=== PATIENT | female | born 1970 | race Caucasian/White ===

== ENCOUNTER 2018-08-22 15:49 | Emergency (ER) | payer MEDICAID, SELFPAY ==
[2018-08-22 15:57] VITALS: BP 173/103; PULSE 104; RESP 20; TEMP 36.6; O2SAT 98
--- NOTE | 2018-08-22 16:24 | DI.CT_ITS ---
SYMPTOMS/DIAGNOSIS: DIZZINESS CRANIAL CT: The study was carried out without contrast enhancement. There is no evidence of an intra or extra-axial hemorrhage or significant white matter disease. The ventricles are unremarkable. There is no skull fracture. The soft tissues are unremarkable. The paranasal sinuses as visualized are unremarkable. There is no evidence of a mastoid effusion. SUMMARY: No evidence of acute intracranial pathology.
--- NOTE | 2018-08-22 16:27 | W.ED.GENAD ---
Discharge Plan Disposition Patient Disposition: HOME Condition: Fair Discharge Details Chief Complaint: Dizzy/Sync Clinical Impression: Acute viral syndrome, Acute labyrinthitis Primary Care Provider: Mar Blanca ED Provider: Radha Reed Home Meds and New Rx's Prescriptions: Continue metformin 500 MG tablet 500 mg PO DAILY RF: 0 bupropion HCl [Wellbutrin SR] 150 MG tablet extended release 12 hr 150 mg PO DAILY RF: 0 blood sugar diagnostic [FreeStyle Lite Strips] 1 EACH strip 1 ea Miscellaneous BID RF: 0 citalopram [Celexa] 20 MG tablet 20 mg PO DAILY RF: 0 levothyroxine 175 MCG tablet 1 tab PO DAILY RF: 0 ropinirole [Requip] 3 MG tablet 1 tab PO HS RF: 0 simvastatin 10 MG tablet 10 mg PO HS RF: 0 ibuprofen 800 MG tablet 800 mg PO PRN RF: 0 lisinopril 10 MG tablet 10 mg PO QAM RF: 0 epinephrine [EpiPen 2-Kalyan] 0.3 MG/0.3 ML auto-injector 0.3 mg IM RF: 0 cyclobenzaprine 10 MG tablet 10 mg PO TID PRN Qty: 10 RF: 0 Discharge Instructions Instructions: Labyrinthitis (ED), Viral Syndrome (ED) Additional Instructions: Encourage hydration. Tylenol and/or ibuprofen as needed for discomfort. Please follow-up with primary care in 1 week if symptoms not improve. If you develop new or worsening symptoms please seek care urgently once again. Please contact primary care tomorrow regarding your thyroid results, TSH 16.73, T4 0.52. Stand Alone Forms: Work Release Referrals: Mar Blanca PA [Primary Care Provider] - Discharge Data Discharge Date/Time-TO BE ENTERED AT DEPARTURE: 08/22/18 19:58 Medical Decision Making Patient is a 47-year-old female presents today with chief complaint of dizziness. She reports that she has had nasal congestion, sore throat and intermittent episodes of lightheadedness times 3 days. Denies any cough, dyspnea, chest pain. No syncope. states that she can occasionally feel that she feels that her head is spinning and that this is been going on for the past several years. Reports that she has had this for quite some time intermittently. States that she has a sudden onset of dizziness that lasts a few seconds particularly when she looks upward. States that this happens approximately 2 times per month and has been going on for quite some time. States that when she puts her eyes down it quickly subsides. She denies any fevers or chills. Denies any sinus pain. Is endorsing tinnitus that is also quite brief. Does not linked with tinnitus and dizziness. Feels that these are at different times. Currently not feeling dizzy. Endorse a brief episode of tinnitus while was in the room with her. Her exam is fairly benign. Pupils are equal and reactive. No nystagmus was elicited with Joselyn maneuver. No dizziness elicited. No nuchal rigidity. Patient appears nontoxic. Patient is hypertensive at 173/103, HR 104. Patient is an active smoker. Hx of HTN, RLS, DM type II, hypothyroidism, SU. Advised that her history is most consistent with viral illness particularly as she also has sore throat and congestion. Will obtain labs to evaluate. As patient has had this dizziness historically, I will also obtain CT. No vertical nystagmus was noted. Neuro exam is intact on exam with no acute findings. Patient has history of hypertension, obesity, type 2 diabetes, hypothyroidism, SU and irregular heartbeat. EKG reviewed by Dr. Garrido. Patient is in sinus rhythm with a rate of 87. Please see her note for further information. No acute ischemic changes noted CT reviewed by radiologist. Advised that there is no abnormality with the brain, no hemorrhage, no significant white matter disease, no edema. Ventricles are unremarkable no ventriculomegaly. Bones are unremarkable no acute fracture. Soft tissues are unremarkable. Sinuses are unremarkable no acute sinusitis. Mastoid air cells are unremarkable with no mastoid effusion. Laboratory evaluation significant for elevated TSH at 16.73. Patient has been elevated like this historically. Will obtain a free T4. Remaining laboratory evaluation without significant abnormality. Troponin is less than 0.02. No leukocytosis. Free T4 0.52. Discussed these findings with the patient. She reports that she has had a very difficult time getting her thyroid under control. This mind, that she follow-up with her primary care tomorrow to discuss her levothyroxine dosing. Patient's imaging and laboratory evaluation are quite reassuring as are her physical exam findings. I discussed with the patient and given her congestion, sore throat and ear discomfort, this is likely associate with a viral syndrome that may be causing labyrinthitis. Encourage hydration. She was given a dosing of Antivert which she states was unsuccessful. Seem to be primarily as her feeling of lightheadedness and vertigo are so intermittent. I did reevaluate the patient prior to discussing discharge and still did not note any nystagmus despite her actively feeling dizzy. However, at this point she is not reporting the room is spinning, more that she is feeling lightheaded. We discussed expected course for viral syndrome. She was given strict return precautions. Advise close follow-up with primary care if symptoms are not improving in the next week. Work note was given at patient's request. All of her questions and concerns were addressed and she is in agreement with this plan HPI General Mode of arrival: ambulatory. Date/Time Provider Initiated Documentation: 08/22/18 16:07. Limitations to Documentation: no limitations. Information obtained by: patient. History of Present Illness 47 year old F presents to the emergency department with the chief complaint of dizziness, sore throat, described as moderate, Quality is described as other (denies any discomfort), and is localized to the head, face (endorsing nasal congestion, sore throat) and eyes (describes dizziness as more of lightheaded with occassional room spinning). Patient started experiencing this day(s) (3) and it has been intermittent. No relieving factors improve symptom(s), No exacerbating factors reported . Patient notes no other symptoms. and weakness (endorses weakness for the past 3 days); denies chest pain, cough, diaphoresis, fever/chills, headaches, loss of appetite, malaise, nausea/vomiting, rash, shortness of breath and syncope. Patient did receive the following treatments prior to arrival, NSAID (states she took Ibprofen this morning for chronic back discomfort) Related Data Home Medications Medication Instructions Recorded Confirmed cyclobenzaprine 10 mg PO TID PRN #10 tab 05/22/14 08/22/18 epinephrine [EpiPen 2-Kalyan] 0.3 mg IM 05/22/14 05/22/14 ibuprofen 800 mg PO PRN 05/22/14 08/22/18 levothyroxine 1 tab PO DAILY 05/22/14 08/22/18 lisinopril 10 mg PO QAM 05/22/14 08/22/18 ropinirole [Requip] 1 tab PO HS 05/22/14 08/22/18 simvastatin 10 mg PO HS 05/22/14 08/22/18 blood sugar diagnostic [FreeStyle strip 02/17/18 Lite Strips] bupropion HCl [Wellbutrin SR] 150 mg PO DAILY tab-cap 02/17/18 08/22/18 citalopram [Celexa] 20 mg PO DAILY tab-cap 02/17/18 08/22/18 metformin 500 mg PO DAILY 02/17/18 08/22/18 Previous Rx's Medication Instructions Recorded cyclobenzaprine 10 mg PO TID PRN #10 tab 05/22/14 Allergies Allergy/AdvReac Type Severity Reaction Status Date / Time bee pollen [Bee Pollen] Allergy Severe Swelling/Ed Unverified 08/22/18 16:00 ifrah General Stated Complaint: Dizzy/Sync TERRY: 3 Review of Systems Constitutional Reports as per HPI, Denies chills, Denies fatigue, Denies fever(s), Denies headache(s), Denies malaise, Denies poor appetite and Reports weakness Eyes Denies blurry vision, Denies change in vision, Denies diplopia, Denies eye discharge, Denies irritation, Denies itchy eyes, Denies loss of vision and Denies eye pain ENT Reports as per HPI, Denies abnormal hearing, Reports vertigo, Reports dizziness, Denies ear discharge, Denies otalgia, Denies headache(s), Denies hearing loss, Denies mouth pain, Reports nasal congestion, Denies nose pain, Reports tinnitus (has had intermittent tinnitus, none currently), Denies sinus pain and Denies sinus pressure Cardiovascular Denies chest pain, Denies chest pain at rest, Denies chest pain with activity, Denies syncope, Denies rapid heart rate, Denies pedal edema, Denies dyspnea and Denies dyspnea on exertion Respiratory Denies chest congestion, Denies cough, Denies hemoptysis, Denies dyspnea and Denies dyspnea on exertion Gastrointestinal Denies abdominal pain, Denies diarrhea, Denies nausea and Denies vomiting Musculoskeletal Reports as per HPI, Denies abnormal gait, Reports back pain (no acute back pain), Denies numbness and Denies tingling Integumentary/Breasts Denies rash Neurologic Reports as per HPI, Denies abnormal hearing, Denies abnormal gait, Reports vertigo, Reports dizziness, Denies syncope, Denies headache(s), Denies lack of coordination, Denies focal weakness, Denies loss of vision, Denies numbness, Denies tingling and Reports weakness Endocrine Denies fatigue Allergic/Immunologic Denies itchy eyes [facility] Medical History Bone spur Diabetes mellitus, type II Dyspnea on exertion Female stress incontinence Hypertension Hypothyroidism (acquired) Irregular heart rate Obesity Obstructive sleep apnea (adult) (pediatric) Restless leg syndrome Sinusitis, chronic Smoker Social History Smoking/Tobacco Use Status: Former Tobacco Use Exam Const General: cooperative, healthy appearing, comfortable, no acute distress, well developed and well groomed Nutritional Appearance: average body habitus and well nourished Orientation: alert and awake HENMT Head: normal to inspection, normocephalic and atraumatic Ears: hearing grossly normal bilaterally, external ears normal and TM's normal bilaterally General nose exam: external nose normal Face and sinus: normal facial exam and sinuses nontender Mouth: oral mucosae normal, lip normal, tongue normal, oropharynx abnormals (erythema), moist mucous membranes, no muffled voice and no trismus Teeth and gingiva: dentition normal Throat: tonsils normal and uvula midline Eyes General: appearance normal, both eyes and all related structures Alignment and Position: alignment normal Periorbital: periorbital findings normal Eyelids: eyelids normal Conjunctivae: conjunctivae normal Pupils: PERRL EOM: EOM intact bilaterally Neck Neck: normal visual inspection, full ROM, no lymphadenopathy, no meningeal signs and trachea midline Resp Effort & Inspection: normal respiratory effort, able to speak in complete sentences and no respiratory distress Auscultation: clear to auscultation bilaterally, no rales, no rhonchi and no wheezes Cardio Rate: regular rate Rhythm: regular rhythm Heart Sounds: S1 normal and S2 normal GI Inspection: normal to inspection Palpation: soft, no hepatosplenomegaly, not firm, no guarding, not rigid and nontender Skin General skin exam: no rashes or lesions noted Lesions: no lesions Rashes: no rashes Trauma: no lacerations or abrasions Wounds: no wounds Neuro General: alert, awake and oriented x3 Cranial Nerves: CN's II-XI intact bilaterally, PERRL, accommodation normal, EOM intact bilaterally and no nystagmus Cognition: normal cognition Speech: speech normal Gait: normal gait Motor: muscle tone normal throughout and strength 5/5 throughout Sensory Exam: no sensory deficits noted DTR's: Rt Biceps: 2+, Lt Biceps: 2+, Rt Brachioradialis: 2+, Lt Brachioradialis: 2+, Rt Patellar: 2+, Lt Patellar: 2+, Rt Ankle: 2+ and Lt Ankle: 2+ Coordination: [id number] test normal and [id number] test normal Extrem General: normal to inspection, no pedal edema, no calf tenderness and normal gait Psych Appearance: grossly normal and well kempt Mental Status: mental status grossly normal Speech and Movement: speech and movement normal Course Vital Signs Temperature 36.6 C 08/22/18 15:57 Pulse 104 H 08/22/18 15:57 Respiratory Rate 20 08/22/18 15:57 Blood Pressure 173/103 H 08/22/18 15:57 Pulse Oximetry 98 08/22/18 15:57 Temperature 36.6 C 08/22/18 15:57 Temperature Source Skin 08/22/18 15:57 Pulse 104 H 08/22/18 15:57 Respiratory Rate 20 08/22/18 15:57 Respiratory Effort 08/22/18 15:57 Blood Pressure 173/103 H 08/22/18 15:57 Blood Pressure Position Supine 08/22/18 15:57 Pulse Oximetry 98 08/22/18 15:57 Oxygen Delivery Method Room Air 08/22/18 15:57 Oxygen Flow Rate 0 08/22/18 15:57 Pain Level 4 08/22/18 15:57
--- NOTE | 2018-08-22 16:30 | ED.GENADUL_ITS ---
Discharge Plan Disposition Patient Disposition: HOME Condition: Fair Discharge Details Chief Complaint: Dizzy/Sync Clinical Impression: Acute viral syndrome, Acute labyrinthitis Primary Care Provider: Mar Blanca ED Provider: Radha Reed Home Meds and New Rx's Prescriptions: Continue metformin 500 MG tablet 500 mg PO DAILY RF: 0 bupropion HCl [Wellbutrin SR] 150 MG tablet extended release 12 hr 150 mg PO DAILY RF: 0 blood sugar diagnostic [FreeStyle Lite Strips] 1 EACH strip 1 ea Miscellaneous BID RF: 0 citalopram [Celexa] 20 MG tablet 20 mg PO DAILY RF: 0 levothyroxine 175 MCG tablet 1 tab PO DAILY RF: 0 ropinirole [Requip] 3 MG tablet 1 tab PO HS RF: 0 simvastatin 10 MG tablet 10 mg PO HS RF: 0 ibuprofen 800 MG tablet 800 mg PO PRN RF: 0 lisinopril 10 MG tablet 10 mg PO QAM RF: 0 epinephrine [EpiPen 2-Kalyan] 0.3 MG/0.3 ML auto-injector 0.3 mg IM RF: 0 cyclobenzaprine 10 MG tablet 10 mg PO TID PRN Qty: 10 RF: 0 Discharge Instructions Instructions: Labyrinthitis (ED), Viral Syndrome (ED) Additional Instructions: Encourage hydration. Tylenol and/or ibuprofen as needed for discomfort. Please follow-up with primary care in 1 week if symptoms not improve. If you develop new or worsening symptoms please seek care urgently once again. Please contact primary care tomorrow regarding your thyroid results, TSH 16.73, T4 0.52. Stand Alone Forms: Work Release Referrals: Mar Blanca PA [Primary Care Provider] - Discharge Data Discharge Date/Time-TO BE ENTERED AT DEPARTURE: 08/22/18 19:58 Medical Decision Making Patient is a 47-year-old female presents today with chief complaint of dizziness. She reports that she has had nasal congestion, sore throat and intermittent episodes of lightheadedness times 3 days. Denies any cough, dyspnea, chest pain. No syncope. states that she can occasionally feel that she feels that her head is spinning and that this is been going on for the past several years. Reports that she has had this for quite some time intermittently. States that she has a sudden onset of dizziness that lasts a few seconds particularly when she looks upward. States that this happens approximately 2 times per month and has been going on for quite some time. States that when she puts her eyes down it quickly subsides. She denies any fevers or chills. Denies any sinus pain. Is endorsing tinnitus that is also quite brief. Does not linked with tinnitus and dizziness. Feels that these are at different times. Currently not feeling dizzy. Endorse a brief episode of tinnitus while was in the room with her. Her exam is fairly benign. Pupils are equal and reactive. No nystagmus was elicited with Joselyn maneuver. No dizziness elicited. No nuchal rigidity. Patient appears nontoxic. Patient is hypertensive at 173/103, HR 104. Patient is an active smoker. Hx of HTN, RLS, DM type II, hypothyroidism, SU. Advised that her history is most consistent with viral illness particularly as she also has sore throat and congestion. Will obtain labs to evaluate. As patient has had this dizziness historically, I will also obtain CT. No vertical nystagmus was noted. Neuro exam is intact on exam with no acute findings. Patient has history of hypertension, obesity, type 2 diabetes, hypothyroidism, SU and irregular heartbeat. EKG reviewed by Dr. Garrido. Patient is in sinus rhythm with a rate of 87. Please see her note for further information. No acute ischemic changes noted CT reviewed by radiologist. Advised that there is no abnormality with the brain , no hemorrhage, no significant white matter disease, no edema. Ventricles are unremarkable no ventriculomegaly. Bones are unremarkable no acute fracture. Soft tissues are unremarkable. Sinuses are unremarkable no acute sinusitis. Mastoid air cells are unremarkable with no mastoid effusion. Laboratory evaluation significant for elevated TSH at 16.73. Patient has been elevated like this historically. Will obtain a free T4. Remaining laboratory evaluation without significant abnormality. Troponin is less than 0.02. No leukocytosis. Free T4 0.52. Discussed these findings with the patient. She reports that she has had a very difficult time getting her thyroid under control. This mind, that she follow-up with her primary care tomorrow to discuss her levothyroxine dosing. Patient's imaging and laboratory evaluation are quite reassuring as are her physical exam findings. I discussed with the patient and given her congestion, sore throat and ear discomfort, this is likely associate with a viral syndrome that may be causing labyrinthitis. Encourage hydration. She was given a dosing of Antivert which she states was unsuccessful. Seem to be primarily as her feeling of lightheadedness and vertigo are so intermittent. I did reevaluate the patient prior to discussing discharge and still did not note any nystagmus despite her actively feeling dizzy. However, at this point she is not reporting the room is spinning, more that she is feeling lightheaded. We discussed expected course for viral syndrome. She was given strict return precautions. Advise close follow-up with primary care if symptoms are not improving in the next week. Work note was given at patient's request. All of her questions and concerns were addressed and she is in agreement with this plan HPI General Mode of arrival: ambulatory . Date/Time Provider Initiated Documentation: 08/22/18 16:07 . Limitations to Documentation: no limitations . Information obtained by: patient . History of Present Illness 47 year old F presents to the emergency department with the chief complaint of dizziness, sore throat, described as moderate, Quality is described as other (denies any discomfort), and is localized to the head, face (endorsing nasal congestion, sore throat) and eyes (describes dizziness as more of lightheaded with occassional room spinning). Patient started experiencing this day(s) (3) and it has been intermittent. No relieving factors improve symptom(s), No exacerbating factors reported . Patient notes no other symptoms. and weakness (endorses weakness for the past 3 days); denies chest pain, cough, diaphoresis, fever/chills, headaches, loss of appetite, malaise, nausea/vomiting, rash, shortness of breath and syncope. Patient did receive the following treatments prior to arrival, NSAID (states she took Ibprofen this morning for chronic back discomfort) Related Data Home Medications Medication Instructions Recorded Confirmed cyclobenzaprine 10 mg PO TID PRN #10 tab 05/22/14 08/22/18 epinephrine [EpiPen 2-Kalyan] 0.3 mg IM 05/22/14 05/22/14 ibuprofen 800 mg PO PRN 05/22/14 08/22/18 levothyroxine 1 tab PO DAILY 05/22/14 08/22/18 lisinopril 10 mg PO QAM 05/22/14 08/22/18 ropinirole [Requip] 1 tab PO HS 05/22/14 08/22/18 simvastatin 10 mg PO HS 05/22/14 08/22/18 blood sugar diagnostic [FreeStyle strip 02/17/18 Lite Strips] bupropion HCl [Wellbutrin SR] 150 mg PO DAILY tab-cap 02/17/18 08/22/18 citalopram [Celexa] 20 mg PO DAILY tab-cap 02/17/18 08/22/18 metformin 500 mg PO DAILY 02/17/18 08/22/18 Previous Rx's Medication Instructions Recorded cyclobenzaprine 10 mg PO TID PRN #10 tab 05/22/14 Allergies Allergy/AdvReac Type Severity Reaction Status Date / Time bee pollen [Bee Pollen] Allergy Severe Swelling/Ed Unverified 08/22/18 16:00 ifrah General Stated Complaint: Dizzy/Sync TERRY: 3 Review of Systems Constitutional Reports as per HPI, Denies chills, Denies fatigue, Denies fever(s), Denies headache(s), Denies malaise, Denies poor appetite and Reports weakness Eyes Denies blurry vision, Denies change in vision, Denies diplopia, Denies eye discharge, Denies irritation, Denies itchy eyes, Denies loss of vision and Denies eye pain ENT Reports as per HPI, Denies abnormal hearing, Reports vertigo, Reports dizziness , Denies ear discharge, Denies otalgia, Denies headache(s), Denies hearing loss , Denies mouth pain, Reports nasal congestion, Denies nose pain, Reports tinnitus (has had intermittent tinnitus, none currently), Denies sinus pain and Denies sinus pressure Cardiovascular Denies chest pain, Denies chest pain at rest, Denies chest pain with activity, Denies syncope, Denies rapid heart rate, Denies pedal edema, Denies dyspnea and Denies dyspnea on exertion Respiratory Denies chest congestion, Denies cough, Denies hemoptysis, Denies dyspnea and Denies dyspnea on exertion Gastrointestinal Denies abdominal pain, Denies diarrhea, Denies nausea and Denies vomiting Musculoskeletal Reports as per HPI, Denies abnormal gait, Reports back pain (no acute back pain) , Denies numbness and Denies tingling Integumentary/Breasts Denies rash Neurologic Reports as per HPI, Denies abnormal hearing, Denies abnormal gait, Reports vertigo, Reports dizziness, Denies syncope, Denies headache(s), Denies lack of coordination, Denies focal weakness, Denies loss of vision, Denies numbness, Denies tingling and Reports weakness Endocrine Denies fatigue Allergic/Immunologic Denies itchy eyes [facility] Medical History Bone spur Diabetes mellitus, type II Dyspnea on exertion Female stress incontinence Hypertension Hypothyroidism (acquired) Irregular heart rate Obesity Obstructive sleep apnea (adult) (pediatric) Restless leg syndrome Sinusitis, chronic Smoker Social History Smoking/Tobacco Use Status: Former Tobacco Use Exam Const General: cooperative, healthy appearing, comfortable, no acute distress, well developed and well groomed Nutritional Appearance: average body habitus and well nourished Orientation: alert and awake HENMT Head: normal to inspection, normocephalic and atraumatic Ears: hearing grossly normal bilaterally, external ears normal and TM's normal bilaterally General nose exam: external nose normal Face and sinus: normal facial exam and sinuses nontender Mouth: oral mucosae normal, lip normal, tongue normal, oropharynx abnormals ( erythema), moist mucous membranes, no muffled voice and no trismus Teeth and gingiva: dentition normal Throat: tonsils normal and uvula midline Eyes General: appearance normal, both eyes and all related structures Alignment and Position: alignment normal Periorbital: periorbital findings normal Eyelids: eyelids normal Conjunctivae: conjunctivae normal Pupils: PERRL EOM: EOM intact bilaterally Neck Neck: normal visual inspection, full ROM, no lymphadenopathy, no meningeal signs and trachea midline Resp Effort & Inspection: normal respiratory effort, able to speak in complete sentences and no respiratory distress Auscultation: clear to auscultation bilaterally, no rales, no rhonchi and no wheezes Cardio Rate: regular rate Rhythm: regular rhythm Heart Sounds: S1 normal and S2 normal GI Inspection: normal to inspection Palpation: soft, no hepatosplenomegaly, not firm, no guarding, not rigid and nontender Skin General skin exam: no rashes or lesions noted Lesions: no lesions Rashes: no rashes Trauma: no lacerations or abrasions Wounds: no wounds Neuro General: alert, awake and oriented x3 Cranial Nerves: CN's II-XI intact bilaterally, PERRL, accommodation normal, EOM intact bilaterally and no nystagmus Cognition: normal cognition Speech: speech normal Gait: normal gait Motor: muscle tone normal throughout and strength 5/5 throughout Sensory Exam: no sensory deficits noted DTR's: Rt Biceps: 2+, Lt Biceps: 2+, Rt Brachioradialis: 2+, Lt Brachioradialis : 2+, Rt Patellar: 2+, Lt Patellar: 2+, Rt Ankle: 2+ and Lt Ankle: 2+ Coordination: [id number] test normal and [id number] test normal Extrem General: normal to inspection, no pedal edema, no calf tenderness and normal gait Psych Appearance: grossly normal and well kempt Mental Status: mental status grossly normal Speech and Movement: speech and movement normal Course Vital Signs Temperature 36.6 C 08/22/18 15:57 Pulse 104 H 08/22/18 15:57 Respiratory Rate 20 08/22/18 15:57 Blood Pressure 173/103 H 08/22/18 15:57 Pulse Oximetry 98 08/22/18 15:57 Temperature 36.6 C 08/22/18 15:57 Temperature Source Skin 08/22/18 15:57 Pulse 104 H 08/22/18 15:57 Respiratory Rate 20 08/22/18 15:57 Respiratory Effort 08/22/18 15:57 Blood Pressure 173/103 H 08/22/18 15:57 Blood Pressure Position Supine 08/22/18 15:57 Pulse Oximetry 98 08/22/18 15:57 Oxygen Delivery Method Room Air 08/22/18 15:57 Oxygen Flow Rate 0 08/22/18 15:57 Pain Level 4 08/22/18 15:57
[2018-08-22] MEDS: Meclizine 25 MG TAB PO (17:00)
--- NOTE | 2018-08-22 17:24 | DI.VRAD_ITS ---
EXAM: CT Head Without Intravenous Contrast CLINICAL HISTORY: 47 years old, female; Signs and symptoms; Dizziness TECHNIQUE: Axial computed tomography images of the head/brain without intravenous contrast. All CT scans at this facility use at least one of these dose optimization techniques: automated exposure control; mA and/or kV adjustment per patient size (includes targeted exams where dose is matched to clinical indication); or iterative reconstruction. Coronal and sagittal reformatted images were created and reviewed. COMPARISON: No relevant prior studies available. FINDINGS: Brain: Unremarkable. No hemorrhage. No significant white matter disease. No edema. Ventricles: Unremarkable. No ventriculomegaly. Bones/joints: Unremarkable. No acute fracture. Soft tissues: Unremarkable. Sinuses: Unremarkable as visualized. No acute sinusitis. Mastoid air cells: Unremarkable as visualized. No mastoid effusion. IMPRESSION: No acute findings. Dictated and Authenticated by: Santiago Houston MD. Ordering:TEDDY MCCOY MD
[2018-08-22] MEDS: Normal Saline 1,000 ML 1000 ML IV (17:35)
[2018-08-22 17:56] LABS: Bilirubin Negative (Negative); Blood Negative (Negative); Clarity Clear; Glucose Negative (Negative); Ketones Negative (Negative); Leukocyte Esterase Trace (Negative); Nitrite Negative (Negative); Specific Gravity 1.025 (1.005-1.025); Urobilinogen 0.2 EU/dL (Up TO 0.2); pH 5.5 (5-8)
[2018-08-22 17:57] LABS: Abs Immature Grans 0.02 k/cumm (0.0-0.09); Absolute Basophil Count 0.02 k/cumm (0.0-0.2); Absolute Lymphocyte Count 2.72 k/cumm (1.2-3.4); Absolute Monocyte Count 1.11 k/cumm (0.11-0.7); Absolute Neutrophil Count 5.62 k/cumm (1.2-6.7); Basophils % 0.2; HCT 36.9 % (36.0-46.0); HGB 11.5 g/dL (12.0-15.5); Immature Grans % 0.2; Lymphocytes % 28.4; Mean Corp. HGB Concentration 31.2 g/dL (32.0-36.0); Mean Corpuscular Hemoglobin 24.8 pg (27.0-33.0); Mean Corpuscular Volume 79.7 fL (80-95); Mean Platelet Volume 9.8 fL (8.0-11.0); Monocytes % 11.6; Neutrophils % 58.6; Platelet Count 351 x1000/uL (130-400); RBC 4.63 m/cumm (4.00-5.20); RBC Distribution Width 19.5 % (11.7-14.6); White Blood Cell Count 9.59 k/cumm (4.4-10.8)
[2018-08-22 18:12] LABS: ALT 27 U/L (12-78); AST 12 U/L (15-37); Alkaline Phosphatase 114 U/L (46-116); Anion Gap 5.8 mmol/L (3-11); BUN 12 mg/dL (7-18); CO2 27.2 mmol/L (21.0-32.0); CREATININE 0.83 mg/dL (0.55-1.02); Calcium 8.5 mg/dL (8.5-10.1); Chloride 107 mmol/L (98-107); Glucose 153 mg/dL (70-100); Potassium 4.2 mmol/L (3.5-5.1); Sodium 140 mmol/L (136-145); TSH 16.73 uIU/mL (0.358-3.74); Total Protein 7.2 g/dL (6.4-8.2)
[2018-08-22 18:13] LABS: Bilirubin, Total < 0.1 mg/dL (0.2-1.0); Troponin I < 0.02 ng/mL (0.00-0.06)
[2018-08-22 18:16] LABS: RBC Negative (0-2)
[2018-08-22 18:17] LABS: Bacteria Negative HPF (Negative); C & S Indicated? No/Sq. Contamination; Casts Negative LPF (Negative); Crystals Negative HPF (Negative); Epithelial Cells Moderate HPF (Negative); Mucus Negative (Negative); Other Cells Negative (Negative)
[2018-08-22 18:18] LABS: Magnesium 2.1 mg/dL (1.8-2.4)
[2018-08-22 18:36] LABS: Anisocytosis 3+; Diff Comment RBC Morph Reviewed
[2018-08-22 18:37] LABS: Target Cells 2+
[2018-08-22 19:07] LABS: FREE T4 0.52 ng/dL (0.76-1.46)
[2018-08-22 19:54] VITALS: BP 171/99; PULSE 91; RESP 18; TEMP 37; O2SAT 100
== END 2018-08-22 19:58 | disposition home or self-care (01) ==
PROVIDERS: Emergency Provider Physician Assistant; PCP Physician Assistant Medical
DX: R42 Dizziness and giddiness (principal); H83.09 Labyrinthitis, unspecified ear; R09.81 Nasal congestion; B34.9 Viral infection, unspecified; J02.8 Acute pharyngitis due to other specified organisms; R94.6 Abnormal results of thyroid function studies; I10 Essential (primary) hypertension; E11.9 Type 2 diabetes mellitus without complications; Z79.84 Long term (current) use of oral hypoglycemic drugs
CPT/HCPCS: 36415; 80053; 93005; 95992; 96360; 99285; 70450; 81003; 81015; 83735; 84439; 84443; 84484; 85025; 93010

== ENCOUNTER 2018-09-06 06:29 | Emergency (ER) | payer MEDICAID, SELFPAY ==
[2018-09-06 06:33] VITALS: BP 164/92; PULSE 95; RESP 14; TEMP 36.4; O2SAT 96
--- NOTE | 2018-09-06 06:44 | W.ED.GENAD ---
Discharge Plan Disposition Patient Disposition: HOME Discharge Details Chief Complaint: Orthopedic Clinical Impression: Pain of right calf Primary Care Provider: Mar Blanca ED Provider: Terry Irvin Home Meds and New Rx's Prescriptions: Continue metformin 500 MG tablet 500 mg PO DAILY RF: 0 bupropion HCl [Wellbutrin SR] 150 MG tablet extended release 12 hr 150 mg PO DAILY RF: 0 citalopram [Celexa] 20 MG tablet 20 mg PO DAILY RF: 0 levothyroxine 175 MCG tablet 225 mcg PO DAILY RF: 0 ropinirole [Requip] 3 MG tablet 1 tab PO HS RF: 0 simvastatin 10 MG tablet 10 mg PO HS RF: 0 ibuprofen 800 MG tablet 800 mg PO PRN RF: 0 lisinopril 10 MG tablet 10 mg PO QAM RF: 0 epinephrine [EpiPen 2-Kalyan] 0.3 MG/0.3 ML auto-injector 0.3 mg IM RF: 0 No Action blood sugar diagnostic [FreeStyle Lite Strips] 1 EACH strip 1 ea Miscellaneous BID RF: 0 Discharge Instructions Instructions: Leg Pain (ED) Additional Instructions: Use Pierre wrap and crutches over the next 1 week. Bear weight on her leg as tolerated. Take ibuprofen and/or Tylenol for pain -dose according to labels. Please contact your primary care physician to arrange follow-up. Return to the ER for any worsening or new concerning symptoms. Stand Alone Forms: Work Release Referrals: Mar Blanca PA [Primary Care Provider] - Medical Decision Making 7:00 -- 47-year-old female here with atraumatic right calf pain and tenderness. Neurovascularly intact distally. Concern for DVT versus muscle strain. And to treat pain with ibuprofen and obtain lower extremity ultrasound. 7:35 --ultrasound of the right lower extremity interpreted by radiology: Negative for DVT. Suspect muscular strain. Will provide Pierre wrap and crutches. Patient advised to follow-up with her primary care physician. HPI General Mode of arrival: ambulatory. Date/Time Provider Initiated Documentation: 09/06/18 06:37. Limitations to Documentation: no limitations. Information obtained by: patient. HPI Narrative: 47-year-old female with history of hypertension, diabetes, here with calf pain. Patient notes pain in her posterior right calf that started last night and has persisted. Pain is severe and rated 8/10. Pain worse with ambulation. No associated numbness or weakness. Patient did not injure her leg. Patient has no history of blood clots. No recent immobility or surgery. Related Data Home Medications Medication Instructions Recorded Confirmed epinephrine [EpiPen 2-Kalyan] 0.3 mg IM 05/22/14 05/22/14 ibuprofen 800 mg PO PRN 05/22/14 09/06/18 levothyroxine 225 mcg PO DAILY 05/22/14 09/06/18 lisinopril 10 mg PO QAM 05/22/14 09/06/18 ropinirole [Requip] 1 tab PO HS 05/22/14 09/06/18 simvastatin 10 mg PO HS 05/22/14 09/06/18 blood sugar diagnostic [FreeStyle strip 02/17/18 Lite Strips] bupropion HCl [Wellbutrin SR] 150 mg PO DAILY tab-cap 02/17/18 09/06/18 citalopram [Celexa] 20 mg PO DAILY tab-cap 02/17/18 09/06/18 metformin 500 mg PO DAILY 02/17/18 09/06/18 Allergies Allergy/AdvReac Type Severity Reaction Status Date / Time bee pollen [Bee Pollen] Allergy Severe Swelling/Ed Unverified 09/06/18 06:33 firah General Stated Complaint: Orthopedic TERRY: 3 Review of Systems Cardiovascular Denies chest pain and Denies dyspnea Respiratory Denies dyspnea Musculoskeletal Reports as per HPI, Denies numbness and Denies tingling Neurologic Reports as per HPI, Denies numbness and Denies tingling PFSH Medical History Bone spur Diabetes mellitus, type II Dyspnea on exertion Female stress incontinence Hypertension Hypothyroidism (acquired) Irregular heart rate Obesity Obstructive sleep apnea (adult) (pediatric) Restless leg syndrome Sinusitis, chronic Smoker Social History Smoking/Tobacco Use Status: Former Tobacco Use Exam Const General: cooperative and no acute distress HENMT Head: normocephalic Mouth: moist mucous membranes Eyes Conjunctivae: normal conjunctivae Sclera: normal sclerae Neck Neck: trachea midline Resp Auscultation: clear to auscultation bilaterally, no rales, no rhonchi and no wheezes Cardio Jugular venous pressure: no JVD Rate: regular rate and not tachycardic Rhythm: regular rhythm GI Palpation: soft, not firm, no guarding, no masses, not rigid and nontender Skin General skin exam: no rashes or lesions noted Neuro General: alert, awake, oriented x3 and tone normal Extrem General: calf tenderness on the right and no edema Right lower extremity: lower leg Details: no edema and other (Negative Alves test); no erythema, no palpable cords, no deformity and no unusual warmth Psych Appearance: grossly normal Mental Status: mental status grossly normal Course Vital Signs Temperature 36.4 C L 09/06/18 06:33 Pulse 95 H 09/06/18 06:33 Respiratory Rate 14 09/06/18 06:33 Blood Pressure 164/92 H 09/06/18 06:33 Pulse Oximetry 96 09/06/18 06:33 Temperature 36.4 C L 09/06/18 06:33 Temperature Source Temporal Artery Scan 09/06/18 06:33 Pulse 95 H 09/06/18 06:33 Respiratory Rate 14 09/06/18 06:33 Respiratory Effort 09/06/18 06:33 Blood Pressure 164/92 H 09/06/18 06:33 Blood Pressure Position Sitting 09/06/18 06:33 Pulse Oximetry 96 09/06/18 06:33 Oxygen Delivery Method Room Air 09/06/18 06:33 Oxygen Flow Rate 0 09/06/18 06:33 Pain Level 8 09/06/18 06:39
[2018-09-06] MEDS: Ibuprofen 400 MG TAB PO (07:04)
--- NOTE | 2018-09-06 07:08 | ED.GENADUL_ITS ---
Discharge Plan Disposition Patient Disposition: HOME Discharge Details Chief Complaint: Orthopedic Clinical Impression: Pain of right calf Primary Care Provider: Mar Blanca ED Provider: Terry Irvin Home Meds and New Rx's Prescriptions: Continue metformin 500 MG tablet 500 mg PO DAILY RF: 0 bupropion HCl [Wellbutrin SR] 150 MG tablet extended release 12 hr 150 mg PO DAILY RF: 0 citalopram [Celexa] 20 MG tablet 20 mg PO DAILY RF: 0 levothyroxine 175 MCG tablet 225 mcg PO DAILY RF: 0 ropinirole [Requip] 3 MG tablet 1 tab PO HS RF: 0 simvastatin 10 MG tablet 10 mg PO HS RF: 0 ibuprofen 800 MG tablet 800 mg PO PRN RF: 0 lisinopril 10 MG tablet 10 mg PO QAM RF: 0 epinephrine [EpiPen 2-Kalyan] 0.3 MG/0.3 ML auto-injector 0.3 mg IM RF: 0 No Action blood sugar diagnostic [FreeStyle Lite Strips] 1 EACH strip 1 ea Miscellaneous BID RF: 0 Discharge Instructions Instructions: Leg Pain (ED) Additional Instructions: Use Pierre wrap and crutches over the next 1 week. Bear weight on her leg as tolerated. Take ibuprofen and/or Tylenol for pain -dose according to labels. Please contact your primary care physician to arrange follow-up. Return to the ER for any worsening or new concerning symptoms. Stand Alone Forms: Work Release Referrals: Mar Blanca PA [Primary Care Provider] - Medical Decision Making 7:00 -- 47-year-old female here with atraumatic right calf pain and tenderness. Neurovascularly intact distally. Concern for DVT versus muscle strain. And to treat pain with ibuprofen and obtain lower extremity ultrasound. 7:35 --ultrasound of the right lower extremity interpreted by radiology: Negative for DVT. Suspect muscular strain. Will provide Pierre wrap and crutches. Patient advised to follow-up with her primary care physician. HPI General Mode of arrival: ambulatory . Date/Time Provider Initiated Documentation: 09/06/18 06:37 . Limitations to Documentation: no limitations . Information obtained by: patient . HPI Narrative: 47-year-old female with history of hypertension, diabetes, here with calf pain. Patient notes pain in her posterior right calf that started last night and has persisted. Pain is severe and rated 8/10. Pain worse with ambulation. No associated numbness or weakness. Patient did not injure her leg. Patient has no history of blood clots. No recent immobility or surgery. Related Data Home Medications Medication Instructions Recorded Confirmed epinephrine [EpiPen 2-Kalyan] 0.3 mg IM 05/22/14 05/22/14 ibuprofen 800 mg PO PRN 05/22/14 09/06/18 levothyroxine 225 mcg PO DAILY 05/22/14 09/06/18 lisinopril 10 mg PO QAM 05/22/14 09/06/18 ropinirole [Requip] 1 tab PO HS 05/22/14 09/06/18 simvastatin 10 mg PO HS 05/22/14 09/06/18 blood sugar diagnostic [FreeStyle strip 02/17/18 Lite Strips] bupropion HCl [Wellbutrin SR] 150 mg PO DAILY tab-cap 02/17/18 09/06/18 citalopram [Celexa] 20 mg PO DAILY tab-cap 02/17/18 09/06/18 metformin 500 mg PO DAILY 02/17/18 09/06/18 Allergies Allergy/AdvReac Type Severity Reaction Status Date / Time bee pollen [Bee Pollen] Allergy Severe Swelling/Ed Unverified 09/06/18 06:33 ifrah General Stated Complaint: Orthopedic TERRY: 3 Review of Systems Cardiovascular Denies chest pain and Denies dyspnea Respiratory Denies dyspnea Musculoskeletal Reports as per HPI, Denies numbness and Denies tingling Neurologic Reports as per HPI, Denies numbness and Denies tingling PFSH Medical History Bone spur Diabetes mellitus, type II Dyspnea on exertion Female stress incontinence Hypertension Hypothyroidism (acquired) Irregular heart rate Obesity Obstructive sleep apnea (adult) (pediatric) Restless leg syndrome Sinusitis, chronic Smoker Social History Smoking/Tobacco Use Status: Former Tobacco Use Exam Const General: cooperative and no acute distress HENMT Head: normocephalic Mouth: moist mucous membranes Eyes Conjunctivae: normal conjunctivae Sclera: normal sclerae Neck Neck: trachea midline Resp Auscultation: clear to auscultation bilaterally, no rales, no rhonchi and no wheezes Cardio Jugular venous pressure: no JVD Rate: regular rate and not tachycardic Rhythm: regular rhythm GI Palpation: soft, not firm, no guarding, no masses, not rigid and nontender Skin General skin exam: no rashes or lesions noted Neuro General: alert, awake, oriented x3 and tone normal Extrem General: calf tenderness on the right and no edema Right lower extremity: lower leg Details: no edema and other (Negative Alves test); no erythema, no palpable cords, no deformity and no unusual warmth Psych Appearance: grossly normal Mental Status: mental status grossly normal Course Vital Signs Temperature 36.4 C L 09/06/18 06:33 Pulse 95 H 09/06/18 06:33 Respiratory Rate 14 09/06/18 06:33 Blood Pressure 164/92 H 09/06/18 06:33 Pulse Oximetry 96 09/06/18 06:33 Temperature 36.4 C L 09/06/18 06:33 Temperature Source Temporal Artery Scan 09/06/18 06:33 Pulse 95 H 09/06/18 06:33 Respiratory Rate 14 09/06/18 06:33 Respiratory Effort 09/06/18 06:33 Blood Pressure 164/92 H 09/06/18 06:33 Blood Pressure Position Sitting 09/06/18 06:33 Pulse Oximetry 96 09/06/18 06:33 Oxygen Delivery Method Room Air 09/06/18 06:33 Oxygen Flow Rate 0 09/06/18 06:33 Pain Level 8 09/06/18 06:39
--- NOTE | 2018-09-06 07:11 | DI.US_ITS ---
SYMPTOMS/DIAGNOSIS: PAIN RIGHT LEG ULTRASOUND: There is no evidence of DVT. There is no Culver's cyst.
== END 2018-09-06 07:56 | disposition home or self-care (01) ==
PROVIDERS: Emergency Provider Student in an Organized Health Care Education/Training Program; PCP Physician Assistant Medical
DX: M79.661 Pain in right lower leg (principal); I10 Essential (primary) hypertension; E11.9 Type 2 diabetes mellitus without complications; Z79.84 Long term (current) use of oral hypoglycemic drugs
CPT/HCPCS: 99284; 93971; 99282; E0114

== ENCOUNTER 2018-09-26 01:26 | Outpatient (CLI) | payer MEDICAID, SELFPAY ==
--- NOTE | 2018-09-26 07:23 | DI.MAMMO_ITS ---
SYMPTOMS/DIAGNOSIS: SCREENING, Z12.39 MAMMOGRAM: Mammograms were interpreted according to the usual protocol including computer analysis with CAD system, tomosynthesis and C view imaging. The breasts are of moderate density with fairly symmetrical distribution of fibroglandular tissue. No dominant mass or clumped microcalcification is identified in either breast. Current examination is compared with the previous examination of May 2011 and there has been no gross interval change in appearance since that time. CONCLUSION: No specific evidence of malignancy at this time. Routine screening examinations are suggested at yearly intervals in this age group according to the ACS/ACR guidelines. Category 1, breast density category B. MQSA ASSESSMENT OF FINDINGS: Negative. Category 1. Patient will receive a letter notifying them of these results. BI-RADS category B. There are scattered areas of fibroglandular density.
== END 2018-09-26 01:46 ==
PROVIDERS: PCP Physician Assistant Medical; Visit Provider Nurse Practitioner Family
DX: Z12.31 Encounter for screening mammogram for malignant neoplasm of breast (principal)
CPT/HCPCS: 77063; 77067

== ENCOUNTER 2019-07-26 14:11 | Outpatient (REF) | payer BC, SELFPAY ==
[2019-07-26 21:21] LABS: Anion Gap 11.3 mmol/L (3-11); BUN 16 mg/dL (7-18); CO2 24.7 mmol/L (21.0-32.0); CREATININE 1.05 mg/dL (0.55-1.02); Calcium 9.7 mg/dL (8.5-10.1); Chloride 102 mmol/L (98-107); Glucose 124 mg/dL (70-100); Potassium 4.4 mmol/L (3.5-5.1); Sodium 138 mmol/L (136-145); TSH (W/Ref FT4) 12.87 uIU/mL (0.36-3.74)
[2019-07-26 22:01] LABS: FREE T4 0.94 ng/dL (0.76-1.46)
== END 2019-07-26 14:31 ==
LOC: NCHCN 14:11
PROVIDERS: PCP Nurse Practitioner Family; Visit Provider Nurse Practitioner Family
DX: E03.9 Hypothyroidism, unspecified (principal); I10 Essential (primary) hypertension
CPT/HCPCS: 80048; 84439; 84443

== ENCOUNTER 2020-02-13 07:57 | Outpatient (REF) | payer BC, SELFPAY ==
[2020-02-13 19:44] LABS: ALT 28 U/L (14-59); AST 15 U/L (15-37); Albumin 3.4 g/dL (3.4-5.0); Alkaline Phosphatase 153 U/L (46-116); BUN 15 mg/dL (7-18); Bilirubin, Total 0.3 mg/dL (0.2-1.0); Calcium 9.6 mg/dL (8.5-10.1); Calculated LDL 109 mg/dL (<100); Chloride 102 mmol/L (98-107); Cholesterol 171 mg/dL (<200); Glucose 92 mg/dL (74-106); HDL Cholesterol 40 mg/dL (40-60); Potassium 4.8 mmol/L (3.5-5.1); Sodium 137 mmol/L (136-145); Total Protein 7.1 g/dL (6.4-8.2); Triglyceride 110 mg/dL (<150)
[2020-02-13 20:29] LABS: TSH (W/Ref FT4) < 0.01 uIU/mL (0.36-3.74)
[2020-02-13 22:31] LABS: Creatine Kinase 60 U/L (26-192); FREE T4 2.11 ng/dL (0.76-1.46)
== END 2020-02-13 08:17 ==
LOC: NCHCN 07:57
PROVIDERS: PCP Nurse Practitioner Family; Visit Provider Nurse Practitioner Family
DX: I10 Essential (primary) hypertension (principal); E11.9 Type 2 diabetes mellitus without complications; E03.9 Hypothyroidism, unspecified; E78.5 Hyperlipidemia, unspecified
CPT/HCPCS: 80053; 80061; 82550; 84439; 84443

== ENCOUNTER 2020-04-09 09:12 | Outpatient (REF) | payer BC, SELFPAY ==
[2020-04-09 20:36] LABS: ALT 29 U/L (14-59); AST 10 U/L (15-37); Calculated LDL 92 mg/dL (<100); Cholesterol 158 mg/dL (<200); HDL Cholesterol 44 mg/dL (40-60); Triglyceride 114 mg/dL (<150)
[2020-04-09 21:05] LABS: Creatine Kinase 60 U/L (26-192); FREE T4 1.93 ng/dL (0.76-1.46)
[2020-04-09 21:09] LABS: TSH < 0.01 uIU/mL (0.36-3.74)
== END 2020-04-09 09:32 ==
LOC: NCHCN 09:12
PROVIDERS: PCP Nurse Practitioner Family; Visit Provider Nurse Practitioner Family
DX: E78.5 Hyperlipidemia, unspecified (principal); E03.9 Hypothyroidism, unspecified
CPT/HCPCS: 80061; 82550; 84439; 84443; 84450; 84460

== ENCOUNTER 2020-10-08 08:15 | Outpatient (REF) | payer BC, SELFPAY ==
[2020-10-08 21:23] LABS: ALT 26 U/L (14-59); AST 15 U/L (15-37); Anion Gap 8.3 mmol/L (3-11); BUN 13 mg/dL (7-18); CO2 26.7 mmol/L (21.0-32.0); CREATININE 0.93 mg/dL (0.55-1.02); Calcium 9.4 mg/dL (8.5-10.1); Chloride 102 mmol/L (98-107); Glucose 101 mg/dL (74-106); Potassium 4.5 mmol/L (3.5-5.1); Sodium 137 mmol/L (136-145)
[2020-10-08 21:31] LABS: Hemoglobin A1C 6.7 % (<5.7)
== END 2020-10-08 08:35 ==
LOC: NCHCN 08:15
PROVIDERS: PCP Nurse Practitioner Family; Visit Provider Nurse Practitioner Family
DX: E11.9 Type 2 diabetes mellitus without complications (principal); I10 Essential (primary) hypertension; E03.9 Hypothyroidism, unspecified
CPT/HCPCS: 80048; 83036; 84443; 84450; 84460

== ENCOUNTER 2020-10-22 09:53 | Outpatient (REF) | payer BC, SELFPAY ==
[2020-10-22 21:07] LABS: ALT 25 U/L (14-59); AST 12 U/L (15-37); Anion Gap 7.9 mmol/L (3-11); BUN 11 mg/dL (7-18); CO2 28.1 mmol/L (21.0-32.0); Calcium 9.4 mg/dL (8.5-10.1); Chloride 103 mmol/L (98-107); Glucose 99 mg/dL (74-106); HDL Cholesterol 54 mg/dL (40-60); LDL CHOLESTEROL 103 mg/dL (<100); Potassium 4.7 mmol/L (3.5-5.1); Sodium 139 mmol/L (136-145)
[2020-10-22 21:18] LABS: Creatine Kinase 113 U/L (26-192)
== END 2020-10-22 10:13 ==
LOC: NCHCN 09:53
PROVIDERS: PCP Nurse Practitioner Family; Visit Provider Nurse Practitioner Family
DX: Z00.00 Encounter for general adult medical examination without abnormal findings (principal); Z13.228 Encounter for screening for other metabolic disorders
CPT/HCPCS: 80048; 82550; 83721; 83718; 84450; 84460

== ENCOUNTER 2021-07-26 21:22 | Emergency (ER) | payer BC, SELFPAY ==
[2021-07-26 21:30] VITALS: BP 128/73; PULSE 114; RESP 18; TEMP 36.4; O2SAT 97
--- NOTE | 2021-07-26 21:35 | ED.GENADUL_ITS ---
Discharge Plan Disposition Patient Disposition: HOME Condition: Good Discharge Details Clinical Impression: Diarrhea Primary Care Provider: Caryl Galeas ED Provider: Gonzalo Morrison Phelps Meds and New Rx's Prescriptions: Continued bupropion HCl [Wellbutrin SR] 150 MG tablet extended release 12 hr 150 mg PO DAILY RF: 0 (DME) blood sugar diagnostic [FreeStyle Lite Strips] 1 EACH strip 1 ea Miscellaneous BID RF: 0 citalopram [Celexa] 20 MG tablet 20 mg PO DAILY RF: 0 levothyroxine 175 MCG tablet 225 mcg PO DAILY RF: 0 ropinirole [Requip] 3 MG tablet 1 tab PO HS RF: 0 simvastatin 10 MG tablet 10 mg PO HS RF: 0 ibuprofen 800 MG tablet 800 mg PO PRN RF: 0 lisinopril 10 MG tablet 10 mg PO QAM RF: 0 epinephrine [EpiPen 2-Kalyan] 0.3 MG/0.3 ML auto-injector 0.3 mg IM RF: 0 Discharge Instructions Instructions: Acute Diarrhea (ED) Additional Instructions: Laboratory studies look okay tonight. Bring stool specimen back to lab for testing. Clear liquid/brat diet for the next couple of days. Ondansetron if needed for nausea vomiting. Follow-up with primary care end of week if not improving. Return to ED for fevers, worsening/constant abdominal pain, bloody stool, other concerns Referrals: Caryl Galeas [Primary Care Provider] - Medical Decision Making Patient presenting with complaint of abdominal cramping and diarrhea for the last couple of days. Diarrhea described as multiple episodes of watery yellow diarrhea. Reports earlier this week episode of heartburn which has not recurred. This was chest pain and not abdominal pain. Unlikely to be cardiac but will obtain EKG and troponin. Will start IV and give fluids as well as check CBC and chemistries. Will send stool for C.diff and bacterial pathogens if sample available. EKG without acute changes. Troponin negative. White count is elevated labs otherwise look fine. Patient unable to give stool sample here. Will send home with container and lab slip to bring back for studies. Discharge with a few ondansetron for recurrent nausea. Recommend clear liquid/brat diet. Follow-up with primary care in the week if not improving. Return to ED for bloody diarrhea, fever, worsening/persistent abdominal pain. Lab Data Lab results reviewed: Yes I reviewed the patient's lab results. ECG Data Attestation: I personally reviewed and interpreted this ECG (s) as follows: Prior ECG tracings: not available for review Interpretation: see EKG HPI General Date/Time Provider Initiated Documentation: 07/26/21 21:35 . Limitations to Documentation: no limitations . Information obtained by: patient and RN notes reviewed . HPI Narrative: Patient presents to ED with complaints of abdominal cramping and diarrhea for the last couple of days. 4 days ago she had episode of heartburn which has not returned. It was located more in her chest and her abdomen. Subsequently a couple of days after developed yellow watery diarrhea with abdominal cramping and some nausea. She does not have constant abdominal pain. She has not had vomiting. She has not had fever. There is been no blood in the stool. She has not been on antibiotics recently. 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 She is vaccinated against Covid. She denies cough or shortness of breath. Related Data Home Medications Medication Instructions Recorded Confirmed epinephrine [EpiPen 2-Kalyan] 0.3 mg IM 05/22/14 05/22/14 ibuprofen 800 mg PO PRN 05/22/14 07/26/21 levothyroxine 225 mcg PO DAILY 05/22/14 07/26/21 lisinopril 10 mg PO QAM 05/22/14 07/26/21 ropinirole [Requip] 1 tab PO HS 05/22/14 07/26/21 simvastatin 10 mg PO HS 05/22/14 07/26/21 blood sugar diagnostic [FreeStyle strip 02/17/18 Lite Strips] bupropion HCl [Wellbutrin SR] 150 mg PO DAILY tab-cap 02/17/18 07/26/21 citalopram [Celexa] 20 mg PO DAILY tab-cap 02/17/18 07/26/21 Allergies Allergy/AdvReac Type Severity Reaction Status Date / Time bee pollen [Bee Pollen] Allergy Severe Swelling/Ed Verified 07/26/21 21:42 ifrah General TERRY: 3 Review of Systems Narrative: As documented in HPI otherwise negative as below. Const: no fever, chills, weakness Resp: no cough, SOB, pleuritic pain CV: no CP, diaphoresis, edema, syncope GI: no vomiting Neuro: no headache, numbness, focal weakness, confusion PFSH Medical History Bone spur Diabetes mellitus, type II Dyspnea on exertion Female stress incontinence Hypertension Hypothyroidism (acquired) Irregular heart rate Obesity Obstructive sleep apnea (adult) (pediatric) Restless leg syndrome Sinusitis, chronic Smoker Surgical History History of section S/P hernia repair Social History Smoking/Tobacco Use Status: Current every day Tobacco Type: cigarettes Smoking risk assessment performed?: Yes Alcohol Intake: current Alcohol Intake frequency: a few times a month Drug use: Occasionally Substance use type: marijuana Do you feel safe in your relationship?: Yes Exam Narrative Exam Narrative: Const: Obese female in NAD. HEENT: NC/AT. Normal facial exam. Eyes: Normal conjunctiva and sclera. Neck: Supple. Trachea midline. Lungs: Normal respiratory effort. Lungs are clear. Cor: RRR without murmur/gallop. Good radial pulses. GI: Soft. NT/ND. No guarding or rebound. Neuro: A+O x 3. Normal speech, mentation, gait. Cranial nerves II - XII grossly intact. No gross motor or sensory deficit. Ext: No C/C/E. Skin: Warm and dry without rash.
--- NOTE | 2021-07-26 21:45 | RT.EKG_ITS ---
APPROVED REPORT Exam: Resting ECG Reason for Exam: Patient Location: E HR:101 bpm ECG Measurements Heart Rate 101 AXIS DE 177 P 43 QRSd 85 QRS -2 QT 333 T 74 QTc 431 Conclusion Sinus tachycardia...rate> 99 Low voltage, precordial leads...precordial leads <1.0mV Consider anterior infarct...Q >30mS in V2-V5 Nonspecific ST-T changes lateral limb leads No STEMI
[2021-07-26] MEDS: Normal Saline 1,000 ML 1000 ML IV (22:05)
[2021-07-26 22:09] LABS: Abs Immature Grans 0.06 10^3/uL (0.0-0.06); Absolute Basophil Count 0.04 10^3/uL (0.0-0.2); Absolute Eosinophil Count 0.05 10^3/uL (0.0-0.7); Absolute Lymphocyte Count 1.44 10^3/uL (1.2-3.4); Absolute Monocyte Count 1.32 10^3/uL (0.1-0.8); Basophils % 0.3; Eosinophils % 0.4; HCT 41.9 % (36.0-46.0); HGB 13.4 g/dL (11.2-15.7); Immature Grans % 0.4; Lymphocytes % 10.6; MCV 87.5 fL (80-95); MPV 9.4 fL (8.0-11.0); Monocytes % 9.7; Neutrophils % 78.6; Nucleated RBC 0 %; Platelet Count 304 10^3/uL (130-400); RBC 4.79 10^6/uL (3.93-5.22); RDW 14.4 % (11.7-14.6); RDW-SD 46.3 fL; WBC 13.63 10^3/uL (4.4-10.8)
[2021-07-26 22:12] LABS: Absolute Neutrophil Count 10.71 10^3/uL (1.2-6.7)
[2021-07-26] MEDS: Ondansetron 4 MG/2 ML VIAL IVP (22:15)
[2021-07-26 22:16] LABS: Magnesium 2.1 mg/dL (1.8-2.4)
[2021-07-26 22:24] LABS: ALT 23 U/L (14-59); AST 12 U/L (15-37); Albumin 3.1 g/dL (3.4-5.0); Alkaline Phosphatase 130 U/L (46-116); Anion Gap 7.3 mmol/L (3-11); BUN 18 mg/dL (7-18); Bilirubin, Total 0.2 mg/dL (0.2-1.0); CO2 24.7 mmol/L (21.0-32.0); CREATININE 1.1 mg/dL (0.55-1.02); Chloride 102 mmol/L (98-107); Estimated GFR 52.36 (mL/min/1.73m2); Glucose 122 mg/dL (74-106); Sodium 134 mmol/L (136-145); Total Protein 7.4 g/dL (6.4-8.2)
[2021-07-26 22:36] LABS: Troponin I < 0.05 ng/mL (<0.06)
[2021-07-26] MEDS: Ondansetron O.D.T. 4 MG TABEF, 3 TABS/BTL PO (23:51)
== END 2021-07-26 23:55 | disposition home or self-care (01) ==
PROVIDERS: Emergency Provider Emergency Medicine; PCP Nurse Practitioner Family
DX: R19.7 Diarrhea, unspecified (principal)
CPT/HCPCS: 80053; 87493; 87505; 93005; 96361; 96374; 99284; 83735; 84484; 85025; 93010; 99283; J2405

== ENCOUNTER 2021-07-27 16:51 | Outpatient (REF) | payer BC, SELFPAY ==
[2021-07-27 15:47] LABS: C Diff PCR Negative (Negative)
== END 2021-07-27 16:52 | disposition home or self-care (01) ==
LOC: LBN 16:51
PROVIDERS: PCP Nurse Practitioner Family; Visit Provider Emergency Medicine
DX: R19.7 Diarrhea, unspecified (principal)
CPT/HCPCS: 87493

== ENCOUNTER 2021-07-28 15:30 | Outpatient (REF) | payer BC, SELFPAY ==
[2021-07-28 20:47] LABS: Hemoglobin A1C 6.5 % (<5.7)
[2021-07-28 20:53] LABS: ALT 24 U/L (14-59); AST 12 U/L (15-37); HDL Cholesterol 52 mg/dL (40-60); LDL CHOLESTEROL 105 mg/dL (<100); TSH (W/Ref FT4) 0.47 uIU/mL (0.36-3.74)
[2021-07-30 10:25] LABS: Campylobacter PCR Negative (Negative); Shiga Toxin PCR Negative (Negative); Shigella/Enteroinvasive Ecoli Negative (Negative)
[2021-07-30 13:18] LABS: Salmonella PCR Positive (Negative)
== END 2021-07-28 15:31 | disposition home or self-care (01) ==
LOC: LBN 15:30
PROVIDERS: PCP Nurse Practitioner Family; Visit Provider Emergency Medicine
DX: Z00.00 Encounter for general adult medical examination without abnormal findings (principal)
CPT/HCPCS: 83721; 87329; 87505; 83036; 83718; 84443; 84450; 84460; 87177

== ENCOUNTER → 2021-07-29 14:22 | Outpatient (CLI) | payer BC, SELFPAY ==
[2021-07-29] MEDS: Omnipaque 350 MG/ML 50 ML BTL PO (12:38)
[2021-07-29] MEDS: Breeza Beverage 473 ML BTL PO (12:38)
[2021-07-29] MEDS: Omnipaque 350 MG/ML 100 ML BTL IJ (14:47)
--- NOTE | 2021-07-29 14:48 | DI.CT_ITS ---
Exam(s) CT ABDOMEN PELVIS W EXAM: CT ABDOMEN PELVIS W CLINICAL HISTORY: ABILAT LOW ABD PAIN,R10.9,DIARRHEA,? DIVERTICULITIS OR COLITIS. TECHNIQUE: Imaging Protocol: Axial computed tomography images with coronal and sagittal reformatted images were created and reviewed CONTRAST MATERIAL: Intravenous: Omnipaque 100cc Oral: None COMPARISON: No exams were available for comparison FINDINGS: VISUALIZED LUNG BASES: Interstitial lung disease. No pleural effusions. ABDOMEN: There is no ascites. LIVER: There are no focal hepatic lesions evident. Mild steatosis. GALLBLADDER/BILIARY: No obvious gallbladder pathology. CBD is not dilated. PANCREAS: No evidence of pancreatic mass nor dilatation of the pancreatic duct. SPLEEN: Spleen is not enlarged. No obvious intrasplenic lesions. Splenic and portal veins are paten t. ADRENALS: Is thickening of the left adrenal gland. Right adrenal gland also exhibits milder thickeni ng. KIDNEYS:There is a large calculus in the right renal pelvis which measures 1.6 by 1.0 cm by 1.4 cm. There is mild hydronephrosis above this level. A smaller a few smaller calculi in the lower pole mauro yx of the right kidney are also noted. The largest these measures 4 millimeters. There are no calcu li in the opposite-left kidney nor dilatation left collecting system. Right ureter is not dilated be low the UPJ. Also no calculi ureterovesical junctions nor within the nondistended urinary bladder. There are no cyst nor solid masses in either kidney. No perinephric fluid or streaking.. ABDOMINAL AORTA: Abdominal aorta is not enlarged. LYMPH NODES:There is no retroperitoneal nor paraaortic adenopathy. ABDOMINAL WALL: There are periumbilical fat containing hernias. These do not contain bowel loops. GI: There is no bowel obstruction. However, there is a diffuse malone colitis pattern. Colon wall syed ures 3-4 millimeters thick from cecum to the rectum, inclusive. No ascites. PELVIS: GI: No evidence of appendicitis.No evidence of sigmoid diverticulitis. LYMPH NODES: There is no intrapelvic nor inguinal adenopathy. REPRODUCTIVE: Uterus and ovaries appear unremarkable. No free fluid in the cul-de-sac. Nabothian cy sts noted in the upper cervix. URINARY BLADDER: No calculi nor obvious masses evident OSSEOUS: No significant osseous lesions. Advanced disc space narrowing L5-S1 level-chronic degenerative disc disease. Also significant facet arthropathy in lower lumbar spine. IMPRESSION: 1. There is a 16 x 10 x 14 millimeter obstructing calculus in the lower right renal pelvis with some dilatation of the infundibulum calices in the right kidney above this level. Smaller calculi are see n in the lower pole the right kidney. No calculi lower down in the right ureter nor in the urinary b ladder. No calculi seen in the opposite-left collecting system. No other renal findings. 2. Diffuse malone colitis pattern. Either infectious or an inflammatory bowel disease such as ulcerativ e colitis. No perforation. No gross dilatation. No free fluid. 3. No evidence of appendicitis. No diverticulitis. 4. No ascites. RADIATION DOSE DELIVERED: 1,068.84mGy.cm Total DLP DATA REPOSITORY: All CT scans at this facility are submitted to the National Radiology Data Registry (NRDR) Dose Index Registry (DIR) with the [employer] (ACR). RADIATION OPTIMIZATION: All CT scans at this facility use at least one of these dose optimization te chniques: automated exposure control; mA and/or kV adjustment per patient size (includes targeted exa ms where dose is matched to clinical indication); or iterative reconstruction.
== END ==
PROVIDERS: PCP Nurse Practitioner Family; Visit Provider Nurse Practitioner Family
DX: R10.9 Unspecified abdominal pain (principal); N20.0 Calculus of kidney; K51.80 Other ulcerative colitis without complications
CPT/HCPCS: 74177; J3490; Q9967

== ENCOUNTER 2021-07-31 13:29 | Outpatient (REF) | payer BC, SELFPAY ==
[2021-07-31 13:24] LABS: Abs Immature Grans 0.04 10^3/uL (0.0-0.06); Absolute Basophil Count 0.04 10^3/uL (0.0-0.2); Absolute Eosinophil Count 0.07 10^3/uL (0.0-0.7); Absolute Lymphocyte Count 2.04 10^3/uL (1.2-3.4); Absolute Monocyte Count 1.04 10^3/uL (0.1-0.8); Basophils % 0.4; Eosinophils % 0.6; HCT 39.4 % (36.0-46.0); HGB 12.4 g/dL (11.2-15.7); Immature Grans % 0.4; Lymphocytes % 18.6; MCH 27.9 pg (27.0-33.0); MCHC 31.5 % (32.0-36.0); MCV 88.7 fL (80-95); MPV 9.9 fL (8.0-11.0); Monocytes % 9.5; Neutrophils % 70.5; Nucleated RBC 0 %; Platelet Count 322 10^3/uL (130-400); RBC 4.44 10^6/uL (3.93-5.22); RDW 14.6 % (11.7-14.6); RDW-SD 47.5 fL; WBC 10.99 10^3/uL (4.4-10.8)
[2021-07-31 13:36] LABS: Absolute Neutrophil Count 7.75 10^3/uL (1.2-6.7)
[2021-07-31 13:41] LABS: ESR 33 mm/hr (0-30)
[2021-07-31 13:54] LABS: Bilirubin Negative (Negative); Blood Negative (Negative); Clarity Cloudy (Clear); Glucose Negative (Negative); Ketones Negative (Negative); Leukocyte Esterase Negative (Negative); Nitrite Negative (Negative); Specific Gravity >= 1.030 (1.005-1.025); Urobilinogen 0.2 EU/dL (Up TO 0.2)
[2021-07-31 13:55] LABS: ALT 25 U/L (14-59); AST 12 U/L (15-37); Albumin 2.8 g/dL (3.4-5.0); Alkaline Phosphatase 104 U/L (46-116); Anion Gap 10.6 mmol/L (3-11); BUN 10 mg/dL (7-18); Bilirubin, Total 0.1 mg/dL (0.2-1.0); C-Reactive Protein 1.98 mg/dL (0.0-0.3); CO2 24.4 mmol/L (21.0-32.0); CREATININE 0.9 mg/dL (0.55-1.02); Calcium 9.2 mg/dL (8.5-10.1); Chloride 111 mmol/L (98-107); Glucose 147 mg/dL (74-106); Potassium 3.6 mmol/L (3.5-5.1); Sodium 146 mmol/L (136-145); Total Protein 6.4 g/dL (6.4-8.2)
== END 2021-07-31 13:30 | disposition home or self-care (01) ==
LOC: NCHCN 13:29
PROVIDERS: PCP Nurse Practitioner Family; Visit Provider Nurse Practitioner Family
DX: N20.0 Calculus of kidney (principal); K51.00 Ulcerative (chronic) pancolitis without complications
CPT/HCPCS: 80053; 85652; 81003; 81015; 85025; 86140

== ENCOUNTER 2021-08-03 14:44 | Outpatient (REF) | payer BC, SELFPAY ==
--- NOTE | 2021-08-03 14:00 | PAPFT_PTH ---
PATIENT: Tabatha Becker LOC: [facility]#:[id number] AGE/SX: 50/F ROOM: RE08/03/[address]: Caryl Galeas : 1970 BED: DIS: 08/03/2021 SPEC #: [id number] RECD: 08/04/21 12:51 STATUS: PIETER REMode #: [id number] EVITA: 08/03/21 14:[address]: Caryl Galeas DEPT: [facility] Cytology RECD BY: Veda Copeland Tissues: 1 - CX/ENDOCX FOR PAP SMEARS Procedures: PAP THIN PREP/UVM Screening HPV DNA PROBE Comments: [id number]
== END 2021-08-03 14:45 | disposition home or self-care (01) ==
LOC: NCHCN 14:44
PROVIDERS: PCP Nurse Practitioner Family; Visit Provider Nurse Practitioner Family
DX: N39.0 Urinary tract infection, site not specified (principal); Z12.4 Encounter for screening for malignant neoplasm of cervix; Z11.51 Encounter for screening for human papillomavirus (HPV)
CPT/HCPCS: 88142; 87086; 87480; 87510; 87624; 87660

== ENCOUNTER 2021-11-09 14:03 | Outpatient (REF) | payer BC, SELFPAY ==
[2021-11-09 14:18] LABS: Bilirubin Negative (Negative); Blood Negative (Negative); Clarity Clear (Clear); Glucose Negative (Negative); Ketones Negative (Negative); Leukocyte Esterase Negative (Negative); Nitrite Negative (Negative); Specific Gravity 1.015 (1.005-1.025); Urobilinogen 0.2 EU/dL (Up TO 0.2)
[2021-11-10 16:45] LABS: COVID-19 RT-PCR UVMMC Result Negative (Negative)
== END 2021-11-09 14:04 | disposition home or self-care (01) ==
LOC: NCHCN 14:03
PROVIDERS: PCP Nurse Practitioner Family; Visit Provider Nurse Practitioner Family
DX: Z20.822 Contact with and (suspected) exposure to COVID-19 (principal); Z01.818 Encounter for other preprocedural examination; N20.0 Calculus of kidney
CPT/HCPCS: U0003; 81003; 87086

== ENCOUNTER 2022-01-11 07:40 | Outpatient (CLI) | payer BC, SELFPAY ==
[2022-01-12 13:08] LABS: COVID-19 RT-PCR UVMMC Result Negative (Negative)
== END 2022-01-11 07:41 | disposition home or self-care (01) ==
PROVIDERS: PCP Nurse Practitioner Family; Visit Provider Nurse Practitioner Family
DX: Z20.822 Contact with and (suspected) exposure to COVID-19 (principal)
CPT/HCPCS: U0003

== ENCOUNTER 2022-01-18 01:17 | Outpatient (CLI) | payer BC, SELFPAY ==
[2022-01-19 13:04] LABS: COVID-19 RT-PCR UVMMC Result Negative (Negative)
== END 2022-01-18 01:18 | disposition home or self-care (01) ==
LOC: LBO 01:17
PROVIDERS: PCP Nurse Practitioner Family; Visit Provider Nurse Practitioner Family
DX: Z20.822 Contact with and (suspected) exposure to COVID-19 (principal)
CPT/HCPCS: U0003

== ENCOUNTER 2022-01-25 02:42 | Outpatient (CLI) | payer BC, SELFPAY ==
[2022-01-26 01:40] LABS: COVID-19 RT-PCR UVMMC Result Negative (Negative)
== END 2022-01-25 02:43 | disposition home or self-care (01) ==
LOC: LBO 02:42
PROVIDERS: PCP Nurse Practitioner Family; Visit Provider Nurse Practitioner Family
DX: Z20.822 Contact with and (suspected) exposure to COVID-19 (principal)
CPT/HCPCS: U0003

== ENCOUNTER 2022-02-01 07:18 | Outpatient (CLI) | payer BC, SELFPAY ==
[2022-02-02 13:56] LABS: COVID-19 RT-PCR UVMMC Result Negative (Negative)
== END 2022-02-01 07:19 | disposition home or self-care (01) ==
PROVIDERS: PCP Nurse Practitioner Family; Visit Provider Nurse Practitioner Family
DX: Z20.822 Contact with and (suspected) exposure to COVID-19 (principal)
CPT/HCPCS: U0003

== ENCOUNTER 2022-02-08 07:23 | Outpatient (CLI) | payer BC, SELFPAY ==
[2022-02-08 19:35] LABS: COVID-19 RT-PCR UVMMC Result Negative (Negative)
== END 2022-02-08 07:24 | disposition home or self-care (01) ==
PROVIDERS: PCP Nurse Practitioner Family; Visit Provider Nurse Practitioner Family
DX: Z20.822 Contact with and (suspected) exposure to COVID-19 (principal)
CPT/HCPCS: U0003

== ENCOUNTER 2022-07-29 15:22 | Outpatient (REF) | payer OTHER, SELFPAY ==
[2022-07-29 16:09] LABS: Hemoglobin A1C 8.7 % (<5.7)
[2022-07-29 16:15] LABS: ALT 42 U/L (14-59); AST 27 U/L (15-37); Anion Gap 8.7 mmol/L (3-11); BUN 12 mg/dL (7-18); CO2 28.3 mmol/L (21.0-32.0); CREATININE 0.8 mg/dL (0.55-1.02); Calcium 9.4 mg/dL (8.5-10.1); Chloride 101 mmol/L (98-107); Creatine Kinase 93 U/L (26-192); Glucose 173 mg/dL (74-106); HDL Cholesterol 46 mg/dL (40-60); LDL CHOLESTEROL 105 mg/dL (<100); Potassium 4.4 mmol/L (3.5-5.1); Sodium 138 mmol/L (136-145)
== END 2022-07-29 15:23 | disposition home or self-care (01) ==
LOC: NCHCN 15:22
PROVIDERS: PCP Nurse Practitioner Family; Visit Provider Nurse Practitioner Family
DX: E78.5 Hyperlipidemia, unspecified (principal); I10 Essential (primary) hypertension; E11.9 Type 2 diabetes mellitus without complications; E03.9 Hypothyroidism, unspecified
CPT/HCPCS: 80048; 82550; 83721; 83036; 83718; 84450; 84460

== ENCOUNTER 2022-10-28 16:12 | Emergency (ER) | payer OTHER, SELFPAY ==
--- NOTE | 2022-10-28 16:30 | DI.RAD_ITS ---
Exam(s) XR KNEE RT 4V AP,LAT,DESTINEY,PAT EXAM: XR KNEE RT 4V AP,LAT,DESTINEY,PAT CLINICAL HISTORY: R knee pain s/p injury, r/o fx. TECHNIQUE: 2D digital imaging was performed of the right knee. Four views obtained. Merchant, AP, la teral and PA tunnel views were obtained. COMPARISON: No exams were available for comparison FINDINGS: BONES: No acute fracture is present. No bony destructive lesion is seen. JOINTS: The knee is normally aligned. No joint effusion is seen. There are mild degenerative changes in the knee. SOFT TISSUE: Normal. IMPRESSION: No acute fracture or dislocation. DATA REPOSITORY: RADIATION DOSE DELIVERED:
[2022-10-28 16:33] VITALS: BP 183/90; PULSE 94; RESP 22; TEMP 36.8; O2SAT 95
--- NOTE | 2022-10-28 18:16 | DI.VRAD_ITS ---
PROCEDURE INFORMATION: Exam: XR Left Knee Exam date and time: 10/28/2022 5:58 PM Age: 52 years old Clinical indication: Other: Right knee pain, S/P FX TECHNIQUE: Imaging protocol: Radiologic exam of the Left knee. Views: 4 or more views. COMPARISON: No relevant prior studies available. FINDINGS: Bones/joints: There is lateralization of the patella with mild degenerative change. Probable small joint effusion. There is mild medial compartment narrowing. Early hypertrophic spurring noted at the patellofemoral articulation. Soft tissues: Normal. IMPRESSION: Mild degenerative changes. Dictated and Authenticated by: Soumya Vasquez MD. Ordering:ALYSSA Valladares MD
--- NOTE | 2022-10-28 18:26 | W.ED.GENAD ---
Discharge Plan Disposition Patient Disposition: Home Condition: Stable Discharge Details Clinical Impression: Chronic pain of right knee, Osteoarthritis of right knee Primary Care Provider: Caryl Galeas ED Provider: Jacquelyn Garrido Home Meds and New Rx's Prescriptions: Continued bupropion HCl [Wellbutrin SR] 150 MG tablet extended release 12 hr 150 mg PO DAILY (DME) blood sugar diagnostic [FreeStyle Lite Strips] 1 EACH strip 1 ea Miscellaneous BID citalopram [Celexa] 20 MG tablet 20 mg PO DAILY levothyroxine 175 MCG tablet 200 mcg PO DAILY ropinirole [Requip] 3 MG tablet 1 tab PO HS simvastatin 10 MG tablet 10 mg PO HS ibuprofen 800 MG tablet 800 mg PO PRN lisinopril 10 MG tablet 10 mg PO QAM epinephrine [EpiPen 2-Kalyan] 0.3 MG/0.3 ML auto-injector 0.3 mg IM DIRECTED Januvia 50 mg Tablet 50 mg PO DAILY Discharge Instructions Instructions: Knee Pain (ED), Arthritis (ED) Additional Instructions: Your x-ray of your right knee noted changes consistent with arthritis. Apply ice to the affected area several times daily for 20 minutes at a time. Alternate tylenol and motrin as needed and directed for pain. Call the orthopedics office this week to schedule follow-up for reevaluation of your right knee pain and arthritis. Return immediately to the emergency department if you develop any worsening or new concerning symptoms. Stand Alone Forms: Work Release Referrals: Evelio Gallegos MD [ [facility] STAFF PHYSICIAN] - Discharge Data Discharge Physician: Jacquelyn Garrido Medical Decision Making 52-year-old female with a history of morbid obesity, hypertension, diabetes, hypothyroidism, obstructive sleep apnea presents with right knee pain for the past several weeks. Patient is morbidly obese. Her right knee appears normal to inspection without cellulitis or trauma. She has no right calf tenderness. She has neurovascular intact. Her pain is reproducible with any movement but there is no obvious ligamentous laxity. History of presentation does not appear consistent with septic arthritis or DVT. She was referred for right knee x-ray which showed mild degenerative changes. Discussed with patient that the mainstay of treatment would be weight loss in addition to ice, Tylenol, ibuprofen. Will provide Pierre wrap. She was given orthopedic follow-up information. She requested a work note. Usual and customary return precautions given prior to discharge. Medical Records Medical records reviewed: Yes I reviewed the patient's medical records. Imaging Data Radiologic Study: Radiologist's impression: XR Left Knee Exam date and time: 10/28/2022 5:58 PM Age: 52 years old Clinical indication: Other: Right knee pain, S/P FX TECHNIQUE: Imaging protocol: Radiologic exam of the Left knee. Views: 4 or more views. COMPARISON: No relevant prior studies available. FINDINGS: Bones/joints: There is lateralization of the patella with mild degenerative change. Probable small joint effusion. There is mild medial compartment narrowing. Early hypertrophic spurring noted at the patellofemoral articulation. Soft tissues: Normal. IMPRESSION: Mild degenerative changes. HPI General Mode of arrival: ambulatory. Date/Time Provider Initiated Documentation: 10/28/22 16:40. Limitations to Documentation: no limitations. Information obtained by: patient. HPI Narrative: Patient is a 52-year-old female with a history of morbid obesity, hypertension, diabetes, hypothyroidism, obstructive sleep apnea presents with right knee pain over the past several weeks. She denies any known injury but states the pain was worse while getting into her truck recently. Patient denies any fever. Related Data Home Medications Medication Instructions Recorded Confirmed epinephrine 0.3 mg/0.3 mL 0.3 mg IM DIRECTED 05/22/14 10/28/22 injection, auto-injector (EpiPen 2-Kalyan) ibuprofen 800 mg tablet 800 mg PO PRN 05/22/14 10/28/22 levothyroxine 175 mcg tablet 200 mcg PO DAILY 05/22/14 10/28/22 lisinopril 10 mg tablet 10 mg PO QAM 05/22/14 10/28/22 ropinirole 3 mg tablet (Requip) 1 tab PO HS 05/22/14 10/28/22 simvastatin 10 mg tablet 10 mg PO HS 05/22/14 10/28/22 blood sugar diagnostic (FreeStyle 02/17/18 Lite Strips) bupropion HCl 150 mg tablet,12 hr 150 mg PO DAILY 02/17/18 10/28/22 sustained-release (Wellbutrin SR) citalopram 20 mg tablet (Celexa) 20 mg PO DAILY 02/17/18 10/28/22 sitagliptin phosphate 50 mg tablet 50 mg PO DAILY 10/28/22 10/28/22 (Januvia) Allergies Allergy/AdvReac Type Severity Reaction Status Date / Time bee pollen [Bee Pollen] Allergy Severe Swelling/Ed Verified 10/28/22 16:38 ifrah General Stated Complaint: Orthopedic TERRY: 4 Review of Systems All systems reviewed & are unremarkable except as noted in HPI and below Constitutional Constitutional: Reports as per HPI, Denies chills and Denies fever(s) Eyes Eyes: Denies blurry vision ENT Ears, Nose, Mouth, and Throat: Denies dizziness, Denies sore throat and Denies throat swelling Cardiovascular Cardiovascular: Denies chest pain and Denies dyspnea Respiratory Respiratory: Denies cough and Denies dyspnea Gastrointestinal Gastrointestinal: Denies abdominal pain, Denies diarrhea and Denies vomiting Genitourinary Genitourinary: Denies hematuria and Denies dysuria Musculoskeletal Musculoskeletal: Denies back pain and Denies numbness Integumentary/Breasts Skin/Breast: Denies lesions and Denies rash Neurologic Neurologic: Denies dizziness, Denies localized weakness and Denies numbness Allergic/Immunologic Allergic/Immunologic: Denies throat swelling PFSH All Active Problems (Updated 10/28/22 @ 18:29 by Jacquelyn Garrido DO) Diarrhea (Acute) Chronic pain of right knee (Acute) Osteoarthritis of right knee (Acute) Medical History Bone spur Diabetes mellitus, type II Dyspnea on exertion Female stress incontinence Hypertension Hypothyroidism (acquired) Irregular heart rate Obesity Obstructive sleep apnea (adult) (pediatric) Restless leg syndrome Sinusitis, chronic Smoker Surgical History History of section S/P hernia repair Social History Smoking/Tobacco Use Status: Current every day Tobacco Type: e-cigarettes Smoking risk assessment performed?: Yes Alcohol Intake: current Alcohol Intake frequency: a few times a month Drug use: Occasionally Substance use type: marijuana Do you feel safe at home: Yes Do you feel safe in your relationship?: Yes Exam Const General: cooperative and no acute distress Nutritional Appearance: obese morbidly obese Orientation: alert, awake and oriented x3 HENMT Head: normal to inspection Mouth: oral mucosae normal Eyes General: appearance normal, both eyes and all related structures Neck Neck: normal visual inspection Resp Effort & Inspection: normal respiratory effort and able to speak in complete sentences Cardio Rate: regular rate Skin General skin exam: no rashes or lesions noted Neuro General: patient alert, patient awake and patient oriented x3 Motor: muscle tone normal throughout Extrem Other: Right anterior knee appears normal to inspection. She has pain with valgus and varus stress. Negative anterior and posterior drawer test. No ligamentous laxity noted. There is no overlying erythema, edema, ecchymosis. No right calf tenderness. Right DP/PT pulses intact. Psych Appearance: grossly normal Affect: normal affect Course Vital Signs Vital signs: Vital Signs Temperature 98.3 F 10/28/22 16:33 Pulse 94 H 10/28/22 16:33 Respiratory Rate 22 10/28/22 16:33 Blood Pressure 183/90 H 10/28/22 16:33 Pulse Oximetry 95 10/28/22 16:33 Temperature 98.3 F 10/28/22 16:33 Temperature Source Temporal Artery Scan 10/28/22 16:33 Pulse 94 H 10/28/22 16:33 Respiratory Rate 22 10/28/22 16:33 Respiratory Effort Non-Labored 10/28/22 16:37 Blood Pressure 183/90 H 10/28/22 16:33 Blood Pressure Position Sitting 10/28/22 16:33 Pulse Oximetry 95 10/28/22 16:33 Oxygen Delivery Method Room Air 10/28/22 16:33 Oxygen Flow Rate 0 10/28/22 16:33 Pain Level 9 10/28/22 16:33
== END 2022-10-28 18:41 | disposition home or self-care (01) ==
PROVIDERS: Emergency Provider Physician Assistant; PCP Nurse Practitioner Family
DX: M17.11 Unilateral primary osteoarthritis, right knee (principal); G89.29 Other chronic pain; I10 Essential (primary) hypertension; E11.9 Type 2 diabetes mellitus without complications; E03.9 Hypothyroidism, unspecified; E66.01 Morbid (severe) obesity due to excess calories; Z79.899 Other long term (current) drug therapy
CPT/HCPCS: 99283; 73564; 99282

== ENCOUNTER 2023-06-19 16:08 | Emergency (ER) | payer OTHER, SELFPAY ==
[2023-06-19 16:13] VITALS: BP 134/76; PULSE 115; RESP 20; O2SAT 97
--- NOTE | 2023-06-19 16:29 | ED.GENADUL_ITS ---
Discharge Plan Disposition Patient Disposition: Home Condition: Stable Discharge Details Clinical Impression: Cellulitis Primary Care Provider: Caryl Galeas ED Provider: Afsaneh Fay Home Meds and New Rx's Prescriptions: New sulfamethoxazole-trimethoprim [Bactrim DS] 800-160 mg tablet 1 tab PO BID Qty: 20 0RF cephalexin 500 mg capsule 500 mg PO QID Qty: 40 0RF Continued bupropion HCl [Wellbutrin SR] 150 MG tablet extended release 12 hr 150 mg PO DAILY (DME) FreeStyle Lite Strips 1 EACH strip 1 ea Miscellaneous BID citalopram [Celexa] 20 MG tablet 20 mg PO DAILY levothyroxine 175 MCG tablet 200 mcg PO DAILY ropinirole [Requip] 3 MG tablet 1 tab PO HS simvastatin 10 MG tablet 10 mg PO HS ibuprofen 800 MG tablet 800 mg PO PRN lisinopril 10 MG tablet 10 mg PO QAM epinephrine [EpiPen 2-Kalyan] 0.3 MG/0.3 ML auto-injector 0.3 mg IM DIRECTED Januvia 50 mg Tablet 50 mg PO DAILY Discharge Instructions Instructions: Cellulitis (ED), Cellulitis (DC) Additional Instructions: Warm moist compresses 4 times daily Take antibiotics as directed even if you feel better Symptoms may worsen for the next 24 to 48 hours but after that should improve if not please return for possible IV antibiotics Stand Alone Forms: Work Release Referrals: Caryl Galeas [Primary Care Provider] - Discharge Data Discharge Date/Time-TO BE ENTERED AT DEPARTURE: 06/19/23 17:07 Medical Decision Making This is a 52-year-old woman who comes in with an area of cellulitis present for 3 days under her right axilla. She denies any similar history she had no fevers or signs of systemic infection area has had some purulent drainage. Bedside ultrasound does not show significant pocket to I&D. She has been advised to continue warm moist soaks and encourage drainage with gentle pressure. She will be placed on oral antibiotics area has been marked by nursing she was advised to return if symptoms worsening after 1 to 2 days on the antibiotics Medical Records Medical records reviewed: Yes I reviewed the patient's medical records. HPI General Mode of arrival: ambulatory . Date/Time Provider Initiated Documentation: 06/19/23 16:29 . Limitations to Documentation: no limitations . Information obtained by: patient . HPI Narrative: 3 days of warmth and erythema under her right axilla. Small area that is draining purulent drainage she has had no fevers or signs of systemic infection. No similar history Related Data Home Medications Medication Instructions Recorded Confirmed epinephrine 0.3 mg/0.3 mL 0.3 mg IM DIRECTED 05/22/14 10/28/22 injection, auto-injector (EpiPen 2-Kalyan) ibuprofen 800 mg tablet 800 mg PO PRN 05/22/14 06/19/23 levothyroxine 175 mcg tablet 200 mcg PO DAILY 05/22/14 06/19/23 lisinopril 10 mg tablet 10 mg PO QAM 05/22/14 06/19/23 ropinirole 3 mg tablet (Requip) 1 tab PO HS 05/22/14 06/19/23 simvastatin 10 mg tablet 10 mg PO HS 05/22/14 06/19/23 blood sugar diagnostic (FreeStyle 02/17/18 06/19/23 Lite Strips) bupropion HCl 150 mg tablet,12 hr 150 mg PO DAILY 02/17/18 06/19/23 sustained-release (Wellbutrin SR) citalopram 20 mg tablet (Celexa) 20 mg PO DAILY 02/17/18 06/19/23 sitagliptin phosphate 50 mg tablet 50 mg PO DAILY 10/28/22 06/19/23 (Januvia) cephalexin 500 mg capsule 500 mg PO QID #40 caps 06/19/23 sulfamethoxazole 800 1 tab PO BID #20 tabs 06/19/23 mg-trimethoprim 160 mg tablet (Bactrim DS) Previous Rx's Medication Instructions Recorded cephalexin 500 mg capsule 500 mg PO QID #40 caps 06/19/23 sulfamethoxazole 800 1 tab PO BID #20 tabs 06/19/23 mg-trimethoprim 160 mg tablet (Bactrim DS) Allergies Allergy/AdvReac Type Severity Reaction Status Date / Time bee pollen [Bee Pollen] Allergy Severe Swelling/Ed Verified 10/28/22 16:38 ifrah metformin AdvReac Other (See Unverified 06/19/23 16:18 Comment) General Stated Complaint: Cellulitis TERRY: 3 Review of Systems All systems reviewed & are unremarkable except as noted in HPI and below PFSH All Active Problems (Updated 06/19/23 @ 16:40 by Afsaneh Fay NP) Diarrhea (Acute) Cellulitis (Acute) Medical History Bone spur Diabetes mellitus, type II Dyspnea on exertion Female stress incontinence Hypertension Hypothyroidism (acquired) Irregular heart rate Obesity Obstructive sleep apnea (adult) (pediatric) Restless leg syndrome Sinusitis, chronic Smoker Surgical History History of section S/P hernia repair Social History Smoking/Tobacco Use Status: Current every day Tobacco Type: e-cigarettes Smoking risk assessment performed?: Yes Alcohol Intake: current Alcohol Intake frequency: a few times a month Drug use: Occasionally Substance use type: marijuana Housing: house Do you feel safe at home: Yes Do you feel safe in your relationship?: Yes Exam Const General: comfortable and not ill appearing Nutritional Appearance: obese Orientation: alert, awake and oriented x3 HENMT Head: normal to inspection, normocephalic and atraumatic Mouth: oral mucosae normal Chest Chest: normal inspection of the chest Resp Effort & Inspection: normal respiratory effort Cardio Rate: regular rate Rhythm: regular rhythm Skin General skin exam: erythema Lesions: lesion noted (small open lesion under right axilla, surrounding erythema marked by nurse) Rashes: rashes noted Course Vital Signs Vital signs: Vital Signs Pulse 115 H 06/19/23 16:13 Respiratory Rate 20 06/19/23 16:13 Blood Pressure 134/76 06/19/23 16:13 Pulse Oximetry 97 06/19/23 16:13 Pulse 115 H 06/19/23 16:13 Respiratory Rate 20 06/19/23 16:13 Respiratory Effort Normal, Non-Labored 06/19/23 16:16 Blood Pressure 134/76 06/19/23 16:13 Blood Pressure Position Sitting 06/19/23 16:13 Pulse Oximetry 97 06/19/23 16:13 Oxygen Delivery Method Room Air 06/19/23 16:13 Oxygen Flow Rate 0 06/19/23 16:13 Pain Level 9 06/19/23 16:13 PAWSS Have you Been Recently Intoxicated or Drunk Within the Last 30 days?: No Have you Ever Experienced Previous Episodes of Alcohol Withdrawal?: No Have you ever Experienced Withdrawal Seizures?: No Have you ever Experienced Delirium Tremens(DT)s?: No Have you ever undergone Alcohol Rehabilitation Treatment (i.e, inpt ot outpatient treatment programs)?: No Have you ever Experienced Blackouts?: No Have you ever Combined Alcohol with other Downers within the last 90 days?: No Have you ever Combined Alcohol with any other Substance of Abuse during the last 90 days?: No Result: 0
== END 2023-06-19 17:07 | disposition home or self-care (01) ==
PROVIDERS: Emergency Provider Nurse Practitioner Acute Care; PCP Nurse Practitioner Family
DX: L03.111 Cellulitis of right axilla (principal); E11.9 Type 2 diabetes mellitus without complications; I10 Essential (primary) hypertension; F17.290 Nicotine dependence, other tobacco product, uncomplicated; Z79.84 Long term (current) use of oral hypoglycemic drugs
CPT/HCPCS: 99282

== ENCOUNTER 2023-06-21 15:42 | Inpatient (IN) | payer OTHER, SELFPAY ==
[2023-06-21] VITALS (14 sets, daily range): BP systolic 124–149; BP diastolic 66–104; PULSE 102–131; RESP 18–20; TEMP 36.1–37; O2SAT 92–98
--- NOTE | 2023-06-21 16:03 | ED.GENADUL_ITS ---
Discharge Plan Disposition Patient Disposition: Admit to [facility] Discharge Details Clinical Impression: Cellulitis, Acute hyperglycemia, Acidosis, lactic Primary Care Provider: Caryl Galeas ED Provider: Miriam Camargo Home Meds and New Rx's Prescriptions: No Action bupropion HCl [Wellbutrin SR] 150 MG tablet extended release 12 hr 150 mg PO DAILY (DME) FreeStyle Lite Strips 1 EACH strip 1 ea Miscellaneous BID citalopram [Celexa] 20 MG tablet 20 mg PO DAILY levothyroxine 175 MCG tablet 200 mcg PO DAILY ropinirole [Requip] 3 MG tablet 1 tab PO HS simvastatin 10 MG tablet 10 mg PO HS ibuprofen 800 MG tablet 800 mg PO PRN lisinopril 10 MG tablet 10 mg PO QAM epinephrine [EpiPen 2-Kalyan] 0.3 MG/0.3 ML auto-injector 0.3 mg IM DIRECTED sulfamethoxazole-trimethoprim [Bactrim DS] 800-160 mg tablet 1 tab PO BID Qty: 20 0RF cephalexin 500 mg capsule 500 mg PO QID Qty: 40 0RF Januvia 50 mg Tablet 50 mg PO DAILY Discharge Data Discharge Physician: Miriam Camargo Medical Decision Making This is a 52-year-old female with diabetes who presents with erythema warmth tenderness of the anterior chest wall. She was seen here 2 days ago and placed on outpatient antibiotics. She presents today with increasing pain redness fluctuance and failure to improve with outpatient treatment. My plan is to start her on IV antibiotics Vanco and cefazolin. I have sent a culture. We will obtain blood work including a CBC with differential, lactate, inflammatory markers, comprehensive metabolic panel and we will obtain a CT of her chest for chest wall abscess. I will check her blood sugar give her IV fluids and keep her n.p.o. in case she needs a surgical intervention. After the chest CT we will consult surgery and likely admit her to the hospitalist service for IV antibiotics and further treatment since she has failed outpatient p.o. anti biotics Differential Diagnosis Differential Diagnosis: Cellulitis, abscess, necrotizing fasciitis. Medical Records Medical records reviewed: Yes I reviewed the patient's medical records. Imaging Data Radiologic Study: Imaging: CT Scan Radiologist's impression: 1. Significant inflammatory process in the right anterior chest wall and breast. Follow-up ultrasound recommended. 2. Increased markings in both lung doyle may represent some mild infiltrate but also may be exaggeration related to the respiratory motion artifact here. There are no pleural effusions. No intrathoracic adenopathy evident. HPI General Date/Time Provider Initiated Documentation: 06/21/23 16:03 . Limitations to Documentation: no limitations . Information obtained by: patient, RN notes reviewed and old records reviewed . HPI Narrative: Time seen was 1600 in bed 6. The patient is a 52-year-old patient with type 2 diabetes who presents with 4 to 5 days of a red swollen area on the right anterior chest wall. She thinks that she may have been bitten by an insect. The patient was seen here on the 13, 2 days ago. The chart is not available for me to review but she was discharged on cephalexin and trimethoprim/sulfamethoxazole. She returns today because the redness and pain have gotten worse. She is complaining of 9 out of 10 pain which increases to 15 out of 10 with movement. She denies any fever or chills. She has noted purulent discharge from the lateral aspect of the area of erythema pain and swelling. She tells me that it feels as though the swelling is increasing primarily superiorly. She denies any previous similar episodes. She is a diabetic but does not frequently check her blood sugars. She took acetaminophen yesterday. Related Data Home Medications Medication Instructions Recorded Confirmed epinephrine 0.3 mg/0.3 mL 0.3 mg IM DIRECTED 05/22/14 06/21/23 injection, auto-injector (EpiPen 2-Kalyan) ibuprofen 800 mg tablet 800 mg PO PRN 05/22/14 06/21/23 levothyroxine 175 mcg tablet 200 mcg PO DAILY 05/22/14 06/21/23 lisinopril 10 mg tablet 10 mg PO QAM 05/22/14 06/21/23 ropinirole 3 mg tablet (Requip) 1 tab PO HS 05/22/14 06/21/23 simvastatin 10 mg tablet 10 mg PO HS 05/22/14 06/21/23 blood sugar diagnostic (FreeStyle 02/17/18 06/19/23 Lite Strips) bupropion HCl 150 mg tablet,12 hr 150 mg PO DAILY 02/17/18 06/21/23 sustained-release (Wellbutrin SR) citalopram 20 mg tablet (Celexa) 20 mg PO DAILY 02/17/18 06/21/23 sitagliptin phosphate 50 mg tablet 50 mg PO DAILY 10/28/22 06/21/23 (Januvia) cephalexin 500 mg capsule 500 mg PO QID #40 caps 06/19/23 06/21/23 sulfamethoxazole 800 1 tab PO BID #20 tabs 06/19/23 06/21/23 mg-trimethoprim 160 mg tablet (Bactrim DS) Previous Rx's Medication Instructions Recorded cephalexin 500 mg capsule 500 mg PO QID #40 caps 06/19/23 sulfamethoxazole 800 1 tab PO BID #20 tabs 06/19/23 mg-trimethoprim 160 mg tablet (Bactrim DS) Allergies Allergy/AdvReac Type Severity Reaction Status Date / Time bee pollen [Bee Pollen] Allergy Severe Swelling/Ed Verified 10/28/22 16:38 ifrah metformin AdvReac Other (See Unverified 06/19/23 16:18 Comment) General Stated Complaint: Cellulitis TERRY: 3 Review of Systems All systems reviewed & are unremarkable except as noted in HPI and below Constitutional Constitutional: Denies chills, Denies fever(s) and Reports poor appetite Cardiovascular Cardiovascular: Reports as per HPI and Reports chest pain Comments: Chest pain redness swelling and discharge of the right anterior chest wall Integumentary/Breasts Comments: Redness swelling and tenderness of the right anterior chest wall Endocrine Comments: The patient does have a history of diabetes she rarely checks her blood sugar PFSH All Active Problems Diarrhea (Acute) Cellulitis (Acute) Acute hyperglycemia (Acute) Acidosis, lactic (Acute) Medical History Bone spur Diabetes mellitus, type II Dyspnea on exertion Female stress incontinence Hypertension Hypothyroidism (acquired) Irregular heart rate Obesity Obstructive sleep apnea (adult) (pediatric) Restless leg syndrome Sinusitis, chronic Smoker Surgical History History of section S/P hernia repair Social History Smoking/Tobacco Use Status: Current every day Tobacco Type: e-cigarettes Smoking risk assessment performed?: Yes Alcohol Intake: current Alcohol Intake frequency: a few times a month Drug use: Occasionally Substance use type: marijuana Housing: house Do you feel safe at home: Yes Do you feel safe in your relationship?: Yes Exam Narrative Exam Narrative: The patient is a well-developed well-nourished female who is mildly hypertensive and tachycardic. She is hypothermic. She does not appear toxic she is lying in the bed in no acute distress. She has an elevated BMI at 53.4 Const General: cooperative, healthy appearing, comfortable, no acute distress, well developed, well groomed and well hydrated Nutritional Appearance: well nourished and overweight Orientation: alert, awake and oriented x3 HENMT Head: normal to inspection, normocephalic and atraumatic Ears: hearing grossly normal bilaterally and external ears normal General nose exam: external nose normal, nares normal and no nasal discharge Face and sinus: normal facial exam, sinuses nontender and face symmetric Mouth: oral mucosae normal, lip normal, tongue normal, oropharynx normal, moist mucous membranes and other (Normal phonation. The patient is handling secretions.) Throat: posterior oropharynx normal and uvula midline Eyes General: appearance normal, both eyes and all related structures Eyelids: eyelids normal Conjunctivae: conjunctivae normal Sclera: sclerae normal Cornea: corneas normal Pupils: PERRL EOM: EOM intact bilaterally and No nystagmus Neck Neck: normal visual inspection, full ROM, no lymphadenopathy, no meningeal signs, trachea midline and supple Lymphatic: no lymphadenopathy noted Chest Other: Her chest reveals a large area of erythema, warmth and tenderness with a 5 mm open area from which it is easy to express purulent material from which I took a culture. There is a blue outline from a surgical marker and the erythema has extended several centimeters beyond it. There is induration and some fluctuance. There is no subcutaneous emphysema. I cannot appreciate any lymphangitis. The area is 20 cm x 8 cm with well demarcated borders. Her skin is otherwise normal for ethnicity. Resp Effort & Inspection: normal respiratory effort, able to speak in complete sentences, no audible wheezes, no nasal flaring, no respiratory distress, no retractions, no stridor, not tachypneic, no tracheal deviation, no use of accessory muscles, No prolonged expiratory phase and other (Normal inspiratory to expiratory ratio.) Auscultation: clear to auscultation bilaterally, no rales, no rhonchi, no wheezes and no rubs Tactile Fremitus: tactile fremitus absent Cardio Jugular venous pressure: no JVD Palpation: normal PMI Rate: regular rate Rhythm: regular rhythm Heart Sounds: S1 normal, S2 normal, no gallops, no murmurs and no rubs GI Inspection: normal to inspection and non-distended Palpation: soft, no hepatosplenomegaly, no guarding and nontender Percussion: normal to percussion Auscultation: normal bowel sounds Skin Other: Please see above under chest exam Neuro General: patient alert, patient awake, patient oriented x3, moves all extremities, no meningeal signs, no focal motor deficits and CN's II-XI intact bilaterally Cranial Nerves: CN's II-XI intact bilaterally, PERRL, accommodation normal, EOM intact bilaterally, no nystagmus, facial strength normal, tongue midline, hearing normal and no nystagmus Cognition: normal cognition Speech: speech normal Gait: normal gait Motor: muscle tone normal throughout and strength 5/5 throughout Sensory Exam: no sensory deficits noted Extrem General: normal to inspection, full ROM, capillary refill normal and no clubbing, cyanosis or edema Psych Appearance: grossly normal Affect: normal affect Attitude: cooperative Thought Process: normal Thought Content: normal Insight: insight good Judgment: judgment good Other: The patient appears to have capacity make medical decisions. Course Consultations Consultation #1: [address] Hinds. She will see the patient in the morning Time: 20:50 Consultation #2: 1969 Dr. Enriquez, hospitalist agreed to admit her Vital Signs Vital signs: Vital Signs Temperature 36.1 C L 06/21/23 15:47 Pulse 131 H 06/21/23 15:47 Respiratory Rate 20 06/21/23 15:47 Blood Pressure 149/100 H 06/21/23 15:47 Pulse Oximetry 96 06/21/23 15:47 Temperature 36.1 C L 06/21/23 15:47 Temperature Source Temporal Artery Scan 06/21/23 15:47 Pulse 131 H 06/21/23 15:47 Respiratory Rate 20 06/21/23 15:47 Respiratory Effort Normal, Non-Labored 06/21/23 15:52 Blood Pressure 149/100 H 06/21/23 15:47 Blood Pressure Position Sitting 06/21/23 15:47 Pulse Oximetry 96 06/21/23 15:47 Oxygen Delivery Method Room Air 06/21/23 15:47 Oxygen Flow Rate 0 06/21/23 15:47
--- NOTE | 2023-06-21 16:15 | DI.CT_ITS ---
Exam(s) CT CHEST W EXAM: CT CHEST W CLINICAL HISTORY: chest wall abscess. TECHNIQUE: Multi planar reconstructions were performed. CONTRAST MATERIAL: Omnipaque 350; 75 cc COMPARISON: CT CT ABDOMEN PELVIS W from 07/29/2021 FINDINGS: CHEST: LUNGS: Mild increased markings in both lung doyle but probably exaggerated by some motion artifact h ere. There are no pleural effusions. Small thin-walled bulla noted in the left upper lobe. MEDIASTINUM: There is no hilar nor mediastinal adenopathy. Visualized thyroid unremarkable. CARDIAC: Heart size upper normal. No pericardial effusion.Caliber of the thoracic aorta is within no rmal limits. VISUALIZED UPPER ABDOMEN:Left adrenal gland thickening but this may be exaggerated by the motion trang fact here. Hepatic steatosis noted. No splenomegaly. OSSEOUS: No significant osseous lesions.No fractures. OTHER: There is abnormal density and streaking in the anterior right chest wall starting above the br east and extending down into the breast. Possible multiple confluent abscesses. IMPRESSION: 1. Significant inflammatory process in the right anterior chest wall and breast. Follow-up ultrasoun d recommended. 2. Increased markings in both lung doyle may represent some mild infiltrate but also may be exaggera tion related to the respiratory motion artifact here. There are no pleural effusions. No intrathora cic adenopathy evident. RADIATION DOSE DELIVERED: 872.62mGy.cm Total DLP DATA REPOSITORY: All CT scans at this facility are submitted to the National Radiology Data Registry (NRDR) Dose Index Registry (DIR) with the [employer] ([employer]). RADIATION OPTIMIZATION: All CT scans at this facility use at least one of these dose optimization te chniques: automated exposure control; mA and/or kV adjustment per patient size (includes targeted exa ms where dose is matched to clinical indication); or iterative reconstruction.
[2023-06-21 16:39] LABS: HCT 41.8 % (36.0-46.0); HGB 13.6 g/dL (11.2-15.7); Lactate 2.4 mmol/L (0.6-1.4); MCHC 32.5 % (32.0-36.0); MCV 83 fL (80-95); MPV 10.3 fL (8.0-11.0); Platelet Count 298 10^3/uL (130-400); RBC 5.03 10^6/uL (3.93-5.22); RDW 14.5 % (11.7-14.6); RDW-SD 43.9 fL; WBC 19.01 10^3/uL (4.4-10.8)
[2023-06-21 16:44] LABS: ESR > 120 mm/hr (0-30)
[2023-06-21] MEDS: ACETAMINOPHEN 1,000 MG/100 ML BTL 400 MG IVPB (16:49)
[2023-06-21] MEDS: Ketorolac 15 MG/ML VIAL IVP (16:50)
[2023-06-21 16:55] LABS: ALT 23 U/L (14-59); AST 12 U/L (15-37); Albumin 2.5 g/dL (3.4-5.0); Alkaline Phosphatase 201 U/L (46-116); Anion Gap 13.8 mmol/L (3-11); BUN 13 mg/dL (7-18); Bilirubin, Total 0.5 mg/dL (0.2-1.0); CO2 22.2 mmol/L (21.0-32.0); CREATININE 1.1 mg/dL (0.55-1.02); Calcium 9.9 mg/dL (8.5-10.1); Chloride 94 mmol/L (98-107); Estimated GFR 60.08 (mL/min/1.73m2); Glucose 477 mg/dL (74-106); Magnesium 1.7 mg/dL (1.8-2.4); Potassium 4.3 mmol/L (3.5-5.1); Sodium 130 mmol/L (136-145)
[2023-06-21] MEDS: ceFAZolin 1 GM/50 ML BAG IVPB (17:01)
[2023-06-21 17:16] LABS: Absolute Lymphocyte Count 2.09 10^3/uL (1.2-3.4); Bands % 1
[2023-06-21 17:17] LABS: Absolute Monocyte Count 1.52 10^3/uL (0.1-0.8); Diff Comment Manual Differential; RBC Morphology Normal
[2023-06-21 17:30] LABS: C-Reactive Protein > 25.00 mg/dL (0.0-0.3)
--- NOTE | 2023-06-21 17:30 | RT.EKG_ITS ---
APPROVED REPORT Exam: Resting ECG Reason for Exam: md request Patient Location: E HR:110 bpm ECG Measurements Heart Rate 110 AXIS KS 167 P 66 QRSd 75 QRS 42 QT 336 T 41 QTc 456 Conclusion Sinus tachycardia...rate> 99 Anterior infarct, old...Q >40mS, abnormal ST-T, V2-V5 Q waves inV1-V4 (old) no STEMI, axis shift from previous
[2023-06-21] MEDS: Insulin REGULAR-Human 100 UNITS/ML UNIT IV (17:41)
[2023-06-21] MEDS: Normal Saline 1,000 ML 1000 ML IV (17:47)
[2023-06-21] MEDS: MAGNESIUM SULFATE 1 GM/100 ML BAG IVPB (17:47)
[2023-06-21 17:50] LABS: Prothrombin Time 9.9 sec (9.3-11.0)
[2023-06-21] MEDS: VANCOMYCIN 1,500 MG in Normal Saline 250 ML 166.6666 MG IVPB (17:50)
[2023-06-21] MEDS: Omnipaque 350 MG/ML 100 ML BTL IJ (18:09)
[2023-06-21] MEDS: Normal Saline Flush 10 ML SYR IVP (18:10)
[2023-06-21] MEDS: Normal Saline - Diluent 50 ML VIAL IJ (18:10)
--- NOTE | 2023-06-21 21:52 | W.PM.HP.N ---
Date of service: 06/21/23 Time of Service: 21:52 Assessment and Plan Assessment and plan (1) Cellulitis and abscess of other specified site: Start date: 06/17/23 Status: Acute Assessment and plan: This is a 52-year-old lady who is failed outpatient treatment for cellulitis with abscess over right chest wall status post insect bite. She is diabetic which puts her at risk. She is not having significant fever but did have rigors early during her course. She will be admitted for IV antibiotic therapy (Zosyn and vancomycin) and surgical consult for I&D. Her diabetes will be covered with glucometer measurements and short acting insulin coverage for now. Check hemoglobin A1c. She appears comfortable and there is no evidence of necrotizing fasciitis but surgery will assess ongoing. She is a full code. (2) Acidosis, lactic: Start date: 06/21/23 Status: Acute Assessment and plan: Mild lactic acidosis with patient appearing very comfortable. IV hydration and follow-up lab in the morning. Treating the infection should help this. Controlling hyperglycemia should help this as well. She is not in DKA. (3) Diabetes mellitus, type II: Assessment and plan: On minimal treatment with patient to have hemoglobin A1c checked and during the hospital stay glucometer measurements with short acting insulin coverage along holding Januvia. Long-term she should consider GLP-1 agonist. (4) Hypomagnesemia: Start date: 06/21/23 Status: Acute Assessment and plan: Mild with IV repletion and follow-up in the morning. Continue supplement as needed. (5) Hyponatremia: Start date: 06/21/23 Status: Acute Assessment and plan: Possibly associated with hyperglycemia with patient to have IV normal saline 2 L at 1.5 cc an hour. Encourage heart healthy diabetic diet. (6) Hypertension: Assessment and plan: Continue outpatient medical therapy adjusting as needed during the acute stay. (7) Hypothyroidism (acquired): Assessment and plan: Check TSH with reflex free T4 and continue supplement as prescribed outpatient. History of Present Illness History of Present Illness Chief Complaint: Insect bite right chest wall with infection not responding to outpatient th Narrative: This is a 52-year-old female patient who was bitten by a bug which she brushed off on , 06/16/2023 and the next day on 06/17/2023 began to have erythema around the bite site which was over her right anterior axillary area above her breast. It was red and hot and then began to enlarge with patient having rigors the next day on 06/18/2023. She came to the ED for evaluation 06/19/2023 and did receive Keflex and Bactrim for treatment with no further interventions. The patient states that it was draining and he she was encouraged to have it drained with compression which she was attempting. She was at home with antibiotic therapy but not improving in fact evolving with increased pain and increased drainage but no fever or rigors. She came to the ED for evaluation and had CT scan which showed multiple subcutaneous abscesses but no fascial involvement and the patient was not having significant pain other than the superficial pain with this abscess. She is a diabetic poorly controlled being allergic to metformin only on Januvia. She rarely checks her glucometers at home but they are usually below 130. She has had no polydipsia polyuria but in the ED she was found to have hyperglycemia. This was treated with fluids and regular insulin IV. Patient had no other complaints other than being overweight and has been stable and compliant with her other medical therapy. Surgery has been consulted and will see the patient in the morning with no I&D or drains placed but patient did receive IV vancomycin and Ancef with this to be switched to Zosyn. She is not uncomfortable. She is a full code. Review of Systems Narrative: 13 point review of systems otherwise unrevealing or stable. PFSH All Active Problems (Updated 06/21/23 @ 22:15 by Lopez Enriquez) Hypomagnesemia (Acute) Hyponatremia (Acute) Cellulitis and abscess of other specified site (Acute) Diarrhea (Acute) Cellulitis (Acute) Acute hyperglycemia (Acute) Acidosis, lactic (Acute) Medical History Bone spur Diabetes mellitus, type II Dyspnea on exertion Female stress incontinence Hypertension Hypothyroidism (acquired) Irregular heart rate Obesity Obstructive sleep apnea (adult) (pediatric) Restless leg syndrome Sinusitis, chronic Smoker Surgical History History of section S/P hernia repair Social History Smoking/Tobacco Use Status: Current every day Tobacco Type: e-cigarettes Smoking risk assessment performed?: Yes Alcohol Intake: current Alcohol Intake frequency: a few times a month Drug use: Occasionally Substance use type: marijuana Housing: house Do you feel safe at home: Yes Do you feel safe in your relationship?: Yes Meds Allergies and Home Medications Allergies Allergy/AdvReac Type Severity Reaction Status Date / Time bee pollen [Bee Pollen] Allergy Severe Swelling/Ed Verified 06/21/23 22:39 ifrah metformin AdvReac Other (See Unverified 06/21/23 22:39 Comment) Home Medications Medication Instructions Recorded Confirmed Type epinephrine 0.3 mg/0.3 mL 0.3 mg IM DIRECTED 05/22/14 06/21/23 History injection, auto-injector (EpiPen 2-Kalyan) ibuprofen 800 mg tablet 800 mg PO PRN 05/22/14 06/21/23 History levothyroxine 175 mcg tablet 200 mcg PO DAILY 05/22/14 06/21/23 History lisinopril 10 mg tablet 10 mg PO QAM 05/22/14 06/21/23 History ropinirole 3 mg tablet (Requip) 1 tab PO HS 05/22/14 06/21/23 History simvastatin 10 mg tablet 10 mg PO HS 05/22/14 06/21/23 History blood sugar diagnostic (FreeStyle 02/17/18 06/19/23 History Lite Strips) bupropion HCl 150 mg tablet,12 hr 150 mg PO DAILY 02/17/18 06/21/23 History sustained-release (Wellbutrin SR) citalopram 20 mg tablet (Celexa) 20 mg PO DAILY 02/17/18 06/21/23 History sitagliptin phosphate 50 mg tablet 50 mg PO DAILY 10/28/22 06/21/23 History (Januvia) cephalexin 500 mg capsule 500 mg PO QID #40 caps 06/19/23 06/21/23 Rx sulfamethoxazole 800 1 tab PO BID #20 tabs 06/19/23 06/21/23 Rx mg-trimethoprim 160 mg tablet (Bactrim DS) Exam Narrative Exam Narrative: General: Patient appears appropriate for age, alert and oriented x3 in no acute distress. She is moderate to morbidly obese. HEENT: Normocephalic, eyes with pupils equal and reactive to light, extraocular movement intact and sclera anicteric. Oropharynx with slightly dry mucosa and patient being edentulous. Neck: Supple without JVD. Lungs: Bronchovesicular breath sounds diffusely but essentially clear to auscultation and percussion with no focalizing rales or rhonchi. Heart: Regular rate and rhythm with no murmurs gallops appreciated. Breast: Full exam deferred. Right breast does not appear to be involved other than lateral and axillary aspect with erythematous skin and swelling. Grossly without masses of the right breast. Chest: Right chest area in the anterior axillary line not involving the axilla but involving the lateral breast area with induration and slight fluctuance over the superior aspect of the area which is more erythematous and increased warmth to touch with purulent drainage from one-point. Moderately tender to palpation. Erythema extends towards the back and inferiorly along the chest wall rather than breast. Abdomen: Obese contour, soft and nontender to palpation without palpable hepatosplenomegaly. Genitalia/rectal: Exam deferred. Extremities: Without clubbing, cyanosis or pitting edema. Peripheral pulses intact. Joints with full range of motion. Skin: Large area of erythema with point draining purulent material as described under chest. Neuro: Cranial nerves II through XII grossly intact, no focal motor deficits. No tremor. Patient does have restless legs. Psych: Normal affect and mood. No abnormal thought processes. Remote and recent memory intact. Results Imaging Imaging Studies: EXAM: ? CT CHEST W CLINICAL HISTORY: ? chest wall abscess. ? TECHNIQUE:? Multi planar reconstructions were performed. CONTRAST MATERIAL:? Omnipaque 350; 75 cc COMPARISON:? CT CT ABDOMEN ? PELVIS W from 07/29/2021 FINDINGS: CHEST: LUNGS: Mild increased markings in both lung doyle but probably exaggerated by some motion artifact here.? There are no pleural effusions.? Small thin-walled bulla noted in the left upper lobe.? MEDIASTINUM: There is no hilar nor mediastinal adenopathy. Visualized thyroid unremarkable. CARDIAC: Heart size upper normal.? No pericardial effusion.Caliber of the thoracic aorta is within normal limits. VISUALIZED UPPER ABDOMEN:Left adrenal gland thickening but this may be exaggerated by the motion artifact here.? Hepatic steatosis noted.? No splenomegaly. ? OSSEOUS: No significant osseous lesions.No fractures. OTHER: There is abnormal density and streaking in the anterior right chest wall starting above the breast and extending down into the breast.? Possible multiple confluent abscesses. IMPRESSION: 1. Significant inflammatory process in the right anterior chest wall and breast.? Follow-up ultrasound recommended. 2. Increased markings in both lung doyle may represent some mild infiltrate but also may be exaggeration related to the respiratory motion artifact here.? There are no pleural effusions.? No intrathoracic adenopathy evident. Labs 06/22/23 06:55 06/21/23 16:18 Labs: Laboratory Results - last 24 hr 06/21/23 06/21/23 06/21/23 16:18 16:18 16:18 WBC RBC Hgb Hct MCV MCH MCHC RDW Plt Count MPV Immature Gran % Neutrophils % Band Neutrophils % Lymphocytes % Monocytes % Eosinophils % Basophils % Nucleated RBC % Absolute Neutrophils Absolute Lymphocytes Absolute Monocytes Absolute Eosinophils Absolute Basophils RBC Morphology ESR > 120 H PT INR VBG Lactate 2.4 H* Sodium 130 L Potassium 4.3 Chloride 94 L Carbon Dioxide 22.2 Anion Gap 13.8 H BUN 13 Creatinine 1.1 H Est GFR (CKD-EPI 2020) 60.08 Glucose 477 H Calcium 9.9 Magnesium 1.7 L Total Bilirubin 0.5 AST 12 L ALT 23 Alkaline Phosphatase 201 H C-Reactive Protein > 25.00 H Total Protein 8.0 Albumin 2.5 L 06/21/23 06/21/23 16:18 17:00 WBC 19.01 H RBC 5.03 Hgb 13.6 Hct 41.8 MCV 83 MCH 27.0 MCHC 32.5 RDW 14.5 Plt Count 298 MPV 10.3 Immature Gran % 0.0 Neutrophils % 80.0 Band Neutrophils % 1 Lymphocytes % 11.0 Monocytes % 8.0 Eosinophils % 0.0 Basophils % 0.0 Nucleated RBC % 0.0 Absolute Neutrophils 15.40 H Absolute Lymphocytes 2.09 Absolute Monocytes 1.52 H Absolute Eosinophils 0.00 Absolute Basophils 0.00 RBC Morphology Normal ESR PT 9.9 INR 1.0 VBG Lactate Sodium Potassium Chloride Carbon Dioxide Anion Gap BUN Creatinine Est GFR (CKD-EPI 2020) Glucose Calcium Magnesium Total Bilirubin AST ALT Alkaline Phosphatase C-Reactive Protein Total Protein Albumin Last Vital Signs Temp 36.1 C L 06/21/23 15:47 Pulse 111 H 06/21/23 17:46 Resp 20 06/21/23 15:47 BP 135/85 06/21/23 17:46 Pulse Ox 96 06/21/23 17:50 Time Spent Time spent with Patient: >75 minutes Time was spent: preparing to see the patient(eg.review tests), obtaining and/or reviewing separately otained hiistory, ordering medications,tests, procedures, referring, communicating with other health critical care nurse practitioner, indepentently interpreting results, counseling the patient and care coordination
[2023-06-21 23:03] LABS: TSH (W/Ref FT4) 14.11 uIU/mL (0.36-3.74)
[2023-06-21 23:19] LABS: FREE T4 1.22 ng/dL (0.76-1.46)
[2023-06-21] MEDS: Normal Saline 1,000 ML 125 ML IV (23:44)
[2023-06-21] MEDS: Enoxaparin 40 MG/0.4 ML SYR SC (23:44)
[2023-06-22] VITALS (9 sets, daily range): BP systolic 105–131; BP diastolic 71–85; PULSE 75–106; RESP 16–18; TEMP 36.9–37.8; O2SAT 92–95
[2023-06-22] MEDS: rOPINIRole 1 MG TAB 3 MG PO ×2 (00:07→22:03)
[2023-06-22] MEDS: PIPERACILLIN/TAZO 4.5 GM in Normal Saline 100 ML IVPB ×4 (00:07→23:12)
[2023-06-22 01:17] LABS: Troponin I < 50 ng/L (<or=60)
[2023-06-22] MEDS: VANCOMYCIN 750 MG in Normal Saline 250 ML 166.667 MG IVPB (04:17)
[2023-06-22] MEDS: Normal Saline 10 ML VIAL (04:21)
[2023-06-22] MEDS: Levothyroxine 100 MCG TAB 200 MCG PO (05:04)
[2023-06-22 07:09] LABS: Lactate 2.3 mmol/L (0.6-1.4)
[2023-06-22 07:11] LABS: Abs Immature Grans 0.19 10^3/uL (0.0-0.06); Absolute Basophil Count 0.12 10^3/uL (0.0-0.2); Absolute Lymphocyte Count 1.61 10^3/uL (1.2-3.4); Absolute Monocyte Count 1.12 10^3/uL (0.1-0.8); Basophils % 0.8; Eosinophils % 0.5; HGB 12.8 g/dL (11.2-15.7); Immature Grans % 1.3; Lymphocytes % 10.8; MCH 26.8 pg (27.0-33.0); MCV 84 fL (80-95); MPV 9.7 fL (8.0-11.0); Monocytes % 7.5; Neutrophils % 79.1; Platelet Count 288 10^3/uL (130-400); RBC 4.77 10^6/uL (3.93-5.22); RDW 14.6 % (11.7-14.6); RDW-SD 45.1 fL; WBC 14.92 10^3/uL (4.4-10.8)
[2023-06-22 07:13] LABS: Absolute Eosinophil Count 0.07 10^3/uL (0.0-0.7)
[2023-06-22 07:31] LABS: ALT 17 U/L (14-59); AST 14 U/L (15-37); Albumin 2.3 g/dL (3.4-5.0); Alkaline Phosphatase 185 U/L (46-116); Anion Gap 11.9 mmol/L (3-11); BUN 13 mg/dL (7-18); Bilirubin, Total 0.5 mg/dL (0.2-1.0); CO2 23.1 mmol/L (21.0-32.0); Calcium 9.2 mg/dL (8.5-10.1); Chloride 96 mmol/L (98-107); Estimated GFR 67.36 (mL/min/1.73m2); Glucose 293 mg/dL (74-106); Magnesium 1.8 mg/dL (1.8-2.4); Potassium 4.1 mmol/L (3.5-5.1); Sodium 131 mmol/L (136-145); Total Protein 7.5 g/dL (6.4-8.2)
[2023-06-22] MEDS: Lisinopril 10 MG TAB PO (08:02)
[2023-06-22] MEDS: Insulin Aspart 300 UNITS/3 ML PEN SC ×4 (08:02→22:05)
[2023-06-22] MEDS: buPROPion-CR 150 MG TABCR PO (08:02)
[2023-06-22] MEDS: Acetaminophen 325 MG TAB PO (08:08)
[2023-06-22 08:43] LABS: Bilirubin Small (Negative); Blood Trace-intact (Negative); Clarity Clear (Clear); Glucose >=1000 mg/dL (Negative); Ketones 40 mg/dL (Negative); Leukocyte Esterase Negative (Negative); Nitrite Negative (Negative)
[2023-06-22 08:50] LABS: Bacteria Rare HPF (Negative); C & S Indicated? No; Casts 0-2 Hyaline LPF (Negative); Crystals Negative HPF (Negative); Epithelial Cells Moderate HPF (Negative); Mucus Trace (Negative); RBC 0-2 HPF (0-2); WBC Negative HPF (0-5)
[2023-06-22 09:59] LABS: Hemoglobin A1C 12.1 % (<5.7)
--- NOTE | 2023-06-22 10:33 | PDOC.CMIN ---
Date of service: 06/22/23 Time of Service: 10:33 Care Management Initial Assmt Initial Assessment REASON FOR HOSPITALIZATION:: Cellulitis with abscess, NIDDM with hyperglycemia PREVIOUS FUNCTIONAL STATUS/SOCIAL/FAMILY SUPPORTS:: Tabatha lives in [place], [facility]. 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 She is independent at baseline. CURRENT FUNCTIONAL STATUS:: Tabatha was sitting up in her chair when CM met with her. She stated that she continues to have some pain, but it is manageable. She confirmed that she is on IV antibiotics at this time. Surgical services have been consulted, and met with her and drained her wound at the bedside. She will be closely monitored. CM will discuss options for IV antibiotics, if it is recommended that she have shelter IV abx therapy. CM will continue to follow. ADVANCE DIRECTIVES:: Not on file; CM will offer forms. Has patient been provided with info about the portal/API?: Yes Did the patient sign up for the portal?: No CODE STATUS:: Full Code INSURANCE COVERAGE / FINANCIAL ISSUES:: CBA CURRENT HOME/COMMUNITY SERVICES/EQUIPMENT:: No current services or equipment. PRIMARY CARE PHYSICIAN:: Caryl Galeas POTENTIAL DISCHARGE NEEDS:: Evaluations for further needs, follow up appointments. PATIENT/FAMILY EDUCATION NEEDS:: Review discharge instructions and limitations, discussion of self care needs including ask me three. ANTICIPATED BARRIERS TO DISCHARGE:: None identified. TRANSPORTATION:: Via private vehicle by family. PLAN:: Anticipate Tabatha will return home when medically cleared. She will be driven home via private vehicle by family. She will follow up with her PCP and discharge plan of care. CM will continue to follow. PFSH All Active Problems Hypomagnesemia (Acute) Hyponatremia (Acute) Cellulitis and abscess of other specified site (Acute) Diarrhea (Acute) Cellulitis (Acute) Acute hyperglycemia (Acute) Acidosis, lactic (Acute) Medical History Bone spur Diabetes mellitus, type II Dyspnea on exertion Female stress incontinence Hypertension Hypothyroidism (acquired) Irregular heart rate Obesity Obstructive sleep apnea (adult) (pediatric) Restless leg syndrome Sinusitis, chronic Smoker Surgical History History of section S/P hernia repair Social History Smoking/Tobacco Use Status: Current every day Tobacco Type: e-cigarettes Smoking risk assessment performed?: Yes Alcohol Intake: current Alcohol Intake frequency: a few times a month Drug use: Occasionally Substance use type: marijuana Housing: house Do you feel safe at home: Yes Do you feel safe in your relationship?: Yes
--- NOTE | 2023-06-22 10:45 | W.PM.PROGNOT ---
Date of Service Date of service: 06/22/23 Time of Service: 10:30 Assessment and Plan Assessment and plan (1) Cellulitis and abscess of other specified site: Status: Acute Assessment and plan: Continue Zosyn and vancomycin Seen by surgery for I&D. BC pending MRSA + wound cx OR 06/23 for further debridement, exploration - NPO after midnight (2) Acidosis, lactic: Status: Acute Assessment and plan: Lactate 2.3 Trend (3) Diabetes mellitus, type II: Assessment and plan: A1C - 12.1 up from 8.7 on 07/2022 (4) Hypomagnesemia: Start date: 06/21/23 Status: Acute Assessment and plan: 1.8 Monitor (5) Hyponatremia: Start date: 06/21/23 Status: Acute Assessment and plan: NA 131 monitor (6) Hypertension: Assessment and plan: Continue outpatient medical therapy adjusting as needed during the acute stay. (7) Hypothyroidism (acquired): Assessment and plan: TSH 14.11 FT4 1.22 (8) MRSA (methicillin resistant staph aureus) culture positive: Status: Acute Assessment and plan: MRSA precautions - BC pending continue abx (9) DVT prophylaxis: Status: Acute Assessment and plan: Enoxaparin (10) Discharge planning issues: Status: Acute Assessment and plan: Home when stable - BC pending regarding outpt abx therefore still pending Discussed with Dr Brady Subjective Subjective Patient reports: no new complaints, tolerating a regular diet, bowel movement and afebrile; denies diarrhea, nausea or vomiting Interval history since last seen: Awake alert semi fowlers in bed - complain of pain but states it is controlled. Dsg intact on right upper chest. Surgeon will come in and do bedside I&D later in the day, she is agreeable to this. Exam Const General: comfortable and not ill appearing Nutritional Appearance: obese Orientation: alert, awake and oriented x3 HENMT Head: normal to inspection, normocephalic and atraumatic Mouth: oral mucosae normal Chest Chest: normal inspection of the chest Resp Effort & Inspection: normal respiratory effort Cardio Rate: regular rate Rhythm: regular rhythm Skin General skin exam: erythema Lesions: lesion noted (small open lesion under right axilla, surrounding erythema marked by nurse) Rashes: rashes noted Objective Last Vital Signs Temp 37.3 C 06/22/23 19:45 Pulse 102 H 06/22/23 19:45 Resp 16 06/22/23 19:45 BP 110/74 06/22/23 19:45 Pulse Ox 95 06/22/23 19:45 Laboratory Results - last 24 hr 06/21/23 06/21/23 06/22/23 16:18 21:38 00:48 WBC RBC Hgb Hct MCV MCH MCHC RDW Plt Count MPV Immature Gran % Neutrophils % Lymphocytes % Monocytes % Eosinophils % Basophils % Nucleated RBC % Absolute Neutrophils Absolute Lymphocytes Absolute Monocytes Absolute Eosinophils Absolute Basophils VBG Lactate Sodium Cancelled Potassium Cancelled Chloride Cancelled Carbon Dioxide Cancelled Anion Gap Cancelled BUN Cancelled Creatinine Cancelled Est GFR (CKD-EPI 2020) Cancelled Glucose Cancelled Hemoglobin A1c Calcium Cancelled Magnesium Cancelled Total Bilirubin Cancelled AST Cancelled ALT Cancelled Alkaline Phosphatase Cancelled Troponin I Cancelled < 50 Total Protein Cancelled Albumin Cancelled TSH 14.11 H Free T4 1.22 Urine Color Urine Clarity Urine pH Ur Specific [place] Urine Protein Urine Ketones Urine Blood Urine Nitrite Urine Bilirubin Urine Urobilinogen Ur Leukocyte Esterase Urine RBC Urine WBC Ur Epithelial Cells Urine Crystals Urine Bacteria Urine Casts Urine Mucus Ur Culture Indicated? Urine Glucose 06/22/23 06/22/23 06/22/23 06:55 06:55 06:55 WBC 14.92 H RBC 4.77 Hgb 12.8 Hct 40.0 MCV 84 MCH 26.8 L MCHC 32.0 RDW 14.6 Plt Count 288 MPV 9.7 Immature Gran % 1.3 Neutrophils % 79.1 Lymphocytes % 10.8 Monocytes % 7.5 Eosinophils % 0.5 Basophils % 0.8 Nucleated RBC % 0.0 Absolute Neutrophils 11.80 H Absolute Lymphocytes 1.61 Absolute Monocytes 1.12 H Absolute Eosinophils 0.07 Absolute Basophils 0.12 VBG Lactate 2.3 H* Sodium 131 L Potassium 4.1 Chloride 96 L Carbon Dioxide 23.1 Anion Gap 11.9 H BUN 13 Creatinine 1.0 Est GFR (CKD-EPI 2020) 67.36 Glucose 293 H Hemoglobin A1c Calcium 9.2 Magnesium 1.8 Total Bilirubin 0.5 AST 14 L ALT 17 Alkaline Phosphatase 185 H Troponin I Total Protein 7.5 Albumin 2.3 L TSH Free T4 Urine Color Urine Clarity Urine pH Ur Specific [place] Urine Protein Urine Ketones Urine Blood Urine Nitrite Urine Bilirubin Urine Urobilinogen Ur Leukocyte Esterase Urine RBC Urine WBC Ur Epithelial Cells Urine Crystals Urine Bacteria Urine Casts Urine Mucus Ur Culture Indicated? Urine Glucose 06/22/23 06/22/23 06:55 08:28 WBC RBC Hgb Hct MCV MCH MCHC RDW Plt Count MPV Immature Gran % Neutrophils % Lymphocytes % Monocytes % Eosinophils % Basophils % Nucleated RBC % Absolute Neutrophils Absolute Lymphocytes Absolute Monocytes Absolute Eosinophils Absolute Basophils VBG Lactate Sodium Potassium Chloride Carbon Dioxide Anion Gap BUN Creatinine Est GFR (CKD-EPI 2020) Glucose Hemoglobin A1c 12.1 H Calcium Magnesium Total Bilirubin AST ALT Alkaline Phosphatase Troponin I Total Protein Albumin TSH Free T4 Urine Color Yellow Urine Clarity Clear Urine pH 6.0 Ur Specific [place] 1.020 Urine Protein 30 H Urine Ketones 40 H Urine Blood Trace-intact H Urine Nitrite Negative Urine Bilirubin Small H Urine Urobilinogen 2.0 H Ur Leukocyte Esterase Negative Urine RBC 0-2 Urine WBC Negative Ur Epithelial Cells Moderate Urine Crystals Negative Urine Bacteria Rare Urine Casts 0-2 Hyaline Urine Mucus Trace Ur Culture Indicated? No Urine Glucose >=1000 H Time Spent with Patient Time Spent with Patient: >50 minutes Time was spent: preparing to see the patient(eg.review tests), ordering medications,tests, procedures, referring, communicating with other health acute care physical therapist, indepentently interpreting results, counseling the patient and care coordination
--- NOTE | 2023-06-22 12:28 | W.SURGCON ---
Date of service: 06/22/23 Time of Service: 12:28 Assessment and Plan Assessment and plan (1) Cellulitis and abscess of other specified site: Status: Acute Assessment and plan: Tabatha is a pleasant 52 year old female with a right chest wall abscess. The Cx have come back positive for MRSA. We discussed incision and drainage of the abscess. Unfortunately the patient has just eaten. I discussed bedside incision and drainage. Patient is willing to try incision and drainage at the bedside. I will give her some IV Dilauded, and a small amount of ativan. I will use Lidocaine 2% for local. Risks, benefits and complications of the proceedure were reviewed with her. Complications include but are not limited to bleeding, pain, injury to underlying muscle or nerves, need for further intervention in the OR tomorrow. Her questions have been entertained and answered to her satisfaction. She has a good understanding of the procedure and possible complications and wishes to proceed. No guarantees were given or impleid. History of Present Illness Narrative: Ms Becker is a pleasant 52 year old female who was seen in the ER on 06/19 with cellulitis of the right chest wall and axilla. She was started on Antibiotics. She returned to the ER on 06/21 with worsening Celullitis. Her WBC count was 19.01. CT scan of her chest was done which showed inflammation, fat starnding and ? small abscesses. She was admitted by the Hospitalist for IV antibiotics. Cx were done. Her Cx showed MRSA infection. Overnight she opened an area and is now draining purulent discharge. CT scan was reviewed today. Her PMHx is otherwise significant for Diabetes, Depression, hypothyroidism, HTN and HYperlipidemia. Consults Consult date: 06/21/23 Requesting physician: Andrew Phillips Review of Systems All systems reviewed & are unremarkable except as noted in HPI and below PFSH All Active Problems Hypomagnesemia (Acute) Hyponatremia (Acute) Cellulitis and abscess of other specified site (Acute) Diarrhea (Acute) Cellulitis (Acute) Acute hyperglycemia (Acute) Acidosis, lactic (Acute) Medical History Bone spur Diabetes mellitus, type II Dyspnea on exertion Female stress incontinence Hypertension Hypothyroidism (acquired) Irregular heart rate Obesity Obstructive sleep apnea (adult) (pediatric) Restless leg syndrome Sinusitis, chronic Smoker Surgical History History of section S/P hernia repair Social History Smoking/Tobacco Use Status: Current every day Tobacco Type: e-cigarettes Smoking risk assessment performed?: Yes Alcohol Intake: current Alcohol Intake frequency: a few times a month Drug use: Occasionally Substance use type: marijuana Housing: house Do you feel safe at home: Yes Do you feel safe in your relationship?: Yes Exam Const General: cooperative, comfortable and no acute distress Nutritional Appearance: obese Orientation: alert and oriented x3 Chest Other: Right Chest wall/axilla- there is extensive erythema as well as induration. There is a small opening at the edge of the pectoralis with purulent drainage. Resp Effort & Inspection: normal respiratory effort Results Last Vital Signs Temp 98.6 F 06/22/23 11:07 Pulse 99 H 06/22/23 11:07 Resp 18 06/22/23 03:46 BP 114/75 06/22/23 11:07 Pulse Ox 92 06/22/23 11:07 Labs 06/22/23 06:55 06/22/23 06:55 Labs: Laboratory Results - last 24 hr 06/21/23 06/21/23 06/21/23 16:18 16:18 16:18 WBC RBC Hgb Hct MCV MCH MCHC RDW Plt Count MPV Immature Gran % Neutrophils % Band Neutrophils % Lymphocytes % Monocytes % Eosinophils % Basophils % Nucleated RBC % Absolute Neutrophils Absolute Lymphocytes Absolute Monocytes Absolute Eosinophils Absolute Basophils RBC Morphology ESR > 120 H PT INR VBG Lactate 2.4 H* Sodium 130 L Potassium 4.3 Chloride 94 L Carbon Dioxide 22.2 Anion Gap 13.8 H BUN 13 Creatinine 1.1 H Est GFR (CKD-EPI 2020) 60.08 Glucose 477 H Hemoglobin A1c Calcium 9.9 Magnesium 1.7 L Total Bilirubin 0.5 AST 12 L ALT 23 Alkaline Phosphatase 201 H Troponin I C-Reactive Protein > 25.00 H Total Protein 8.0 Albumin 2.5 L TSH Free T4 Urine Color Urine Clarity Urine pH Ur Specific [place] Urine Protein Urine Ketones Urine Blood Urine Nitrite Urine Bilirubin Urine Urobilinogen Ur Leukocyte Esterase Urine RBC Urine WBC Ur Epithelial Cells Urine Crystals Urine Bacteria Urine Casts Urine Mucus Ur Culture Indicated? Urine Glucose 06/21/23 06/21/23 06/21/23 16:18 16:18 17:00 WBC 19.01 H RBC 5.03 Hgb 13.6 Hct 41.8 MCV 83 MCH 27.0 MCHC 32.5 RDW 14.5 Plt Count 298 MPV 10.3 Immature Gran % 0.0 Neutrophils % 80.0 Band Neutrophils % 1 Lymphocytes % 11.0 Monocytes % 8.0 Eosinophils % 0.0 Basophils % 0.0 Nucleated RBC % 0.0 Absolute Neutrophils 15.40 H Absolute Lymphocytes 2.09 Absolute Monocytes 1.52 H Absolute Eosinophils 0.00 Absolute Basophils 0.00 RBC Morphology Normal ESR PT 9.9 INR 1.0 VBG Lactate Sodium Potassium Chloride Carbon Dioxide Anion Gap BUN Creatinine Est GFR (CKD-EPI 2020) Glucose Hemoglobin A1c Calcium Magnesium Total Bilirubin AST ALT Alkaline Phosphatase Troponin I C-Reactive Protein Total Protein Albumin TSH 14.11 H Free T4 1.22 Urine Color Urine Clarity Urine pH Ur Specific [place] Urine Protein Urine Ketones Urine Blood Urine Nitrite Urine Bilirubin Urine Urobilinogen Ur Leukocyte Esterase Urine RBC Urine WBC Ur Epithelial Cells Urine Crystals Urine Bacteria Urine Casts Urine Mucus Ur Culture Indicated? Urine Glucose 06/21/23 06/22/23 06/22/23 21:38 00:48 06:55 WBC RBC Hgb Hct MCV MCH MCHC RDW Plt Count MPV Immature Gran % Neutrophils % Band Neutrophils % Lymphocytes % Monocytes % Eosinophils % Basophils % Nucleated RBC % Absolute Neutrophils Absolute Lymphocytes Absolute Monocytes Absolute Eosinophils Absolute Basophils RBC Morphology ESR PT INR VBG Lactate Sodium Cancelled 131 L Potassium Cancelled 4.1 Chloride Cancelled 96 L Carbon Dioxide Cancelled 23.1 Anion Gap Cancelled 11.9 H BUN Cancelled 13 Creatinine Cancelled 1.0 Est GFR (CKD-EPI 2020) Cancelled 67.36 Glucose Cancelled 293 H Hemoglobin A1c Calcium Cancelled 9.2 Magnesium Cancelled 1.8 Total Bilirubin Cancelled 0.5 AST Cancelled 14 L ALT Cancelled 17 Alkaline Phosphatase Cancelled 185 H Troponin I Cancelled < 50 C-Reactive Protein Total Protein Cancelled 7.5 Albumin Cancelled 2.3 L TSH Free T4 Urine Color Urine Clarity Urine pH Ur Specific [place] Urine Protein Urine Ketones Urine Blood Urine Nitrite Urine Bilirubin Urine Urobilinogen Ur Leukocyte Esterase Urine RBC Urine WBC Ur Epithelial Cells Urine Crystals Urine Bacteria Urine Casts Urine Mucus Ur Culture Indicated? Urine Glucose 06/22/23 06/22/23 06/22/23 06:55 06:55 06:55 WBC 14.92 H RBC 4.77 Hgb 12.8 Hct 40.0 MCV 84 MCH 26.8 L MCHC 32.0 RDW 14.6 Plt Count 288 MPV 9.7 Immature Gran % 1.3 Neutrophils % 79.1 Band Neutrophils % Lymphocytes % 10.8 Monocytes % 7.5 Eosinophils % 0.5 Basophils % 0.8 Nucleated RBC % 0.0 Absolute Neutrophils 11.80 H Absolute Lymphocytes 1.61 Absolute Monocytes 1.12 H Absolute Eosinophils 0.07 Absolute Basophils 0.12 RBC Morphology ESR PT INR VBG Lactate 2.3 H* Sodium Potassium Chloride Carbon Dioxide Anion Gap BUN Creatinine Est GFR (CKD-EPI 2020) Glucose Hemoglobin A1c 12.1 H Calcium Magnesium Total Bilirubin AST ALT Alkaline Phosphatase Troponin I C-Reactive Protein Total Protein Albumin TSH Free T4 Urine Color Urine Clarity Urine pH Ur Specific [place] Urine Protein Urine Ketones Urine Blood Urine Nitrite Urine Bilirubin Urine Urobilinogen Ur Leukocyte Esterase Urine RBC Urine WBC Ur Epithelial Cells Urine Crystals Urine Bacteria Urine Casts Urine Mucus Ur Culture Indicated? Urine Glucose 06/22/23 08:28 WBC RBC Hgb Hct MCV MCH MCHC RDW Plt Count MPV Immature Gran % Neutrophils % Band Neutrophils % Lymphocytes % Monocytes % Eosinophils % Basophils % Nucleated RBC % Absolute Neutrophils Absolute Lymphocytes Absolute Monocytes Absolute Eosinophils Absolute Basophils RBC Morphology ESR PT INR VBG Lactate Sodium Potassium Chloride Carbon Dioxide Anion Gap BUN Creatinine Est GFR (CKD-EPI 2020) Glucose Hemoglobin A1c Calcium Magnesium Total Bilirubin AST ALT Alkaline Phosphatase Troponin I C-Reactive Protein Total Protein Albumin TSH Free T4 Urine Color Yellow Urine Clarity Clear Urine pH 6.0 Ur Specific [place] 1.020 Urine Protein 30 H Urine Ketones 40 H Urine Blood Trace-intact H Urine Nitrite Negative Urine Bilirubin Small H Urine Urobilinogen 2.0 H Ur Leukocyte Esterase Negative Urine RBC 0-2 Urine WBC Negative Ur Epithelial Cells Moderate Urine Crystals Negative Urine Bacteria Rare Urine Casts 0-2 Hyaline Urine Mucus Trace Ur Culture Indicated? No Urine Glucose >=[address] scan - chest: report reviewed and image reviewed
[2023-06-22] MEDS: LORazepam 2 MG/ML VIAL 1 MG IVP (13:08)
[2023-06-22] MEDS: HYDROmorphone 2 MG/ML SYR IVP (13:09)
[2023-06-22] MEDS: Normal Saline Flush 10 ML SYR IVP (13:09)
[2023-06-22] MEDS: VANCOMYCIN/WATER (PEG) 750 MG/150 ML BAG 100 MG IVPB ×2 (13:49→22:03)
--- NOTE | 2023-06-22 14:11 | W.PM.OP ---
Date of service: 06/22/23 Time of Service: 13:30 Operative Note Operative Note DATE OF PROCEDURE: 06/22/23 PRE-OP DIAGNOSIS: Right chest/axillary abscess POST-OP DIAGNOSIS: same PROCEDURE: Incision and drainage of abscess under local SURGEON: Juanita Hinds ANESTHESIA TYPE: Local By Surgeon Refer to Anesthesia Record ESTIMATED BLOOD LOSS: 10 PATHOLOGY: none sent COMPLICATIONS: None Patient was transported to: no change Patient's condition: stable Indications: Ms Becker is a pleasant 52-year-old female admitted last night by the hospitalist service with a large abscess and cellulitis of her right chest/axilla. Because the patient had eaten lunch I discussed with her doing an incision and drainage at the bedside if she would tolerate that. The procedure and the risks were reviewed with her and she wished to proceed. Patient was given 2 mg of Dilaudid and 1 mg of IV Ativan prior to starting the procedure. Findings: 30 cc of purulent discharge was noted. Procedure Description: After informed consent was obtained the patient was placed in a supine position on her bed. The skin was cleaned with iodine and infiltrated with 2% Lidocaine. A total of 5 cc was used. A 1 inch incision was made over the fluctuant area. Using a hemostat the cavity was opened. About 30 cc of purulent material was extracted. The cavity was then irrigated with 100 cc of normal saline. About an inch of a small Kerlix roll was moistened and placed into the cavity. The rest of the oral was placed over the incision and an ABD was placed over that and secured with tape. The patient tolerated the procedure well and there were no immediate complications.
[2023-06-22] MEDS: Normal Saline 1,000 ML 125 ML IV (16:50)
[2023-06-22] MEDS: Enoxaparin 40 MG/0.4 ML SYR SC (22:03)
[2023-06-22] MEDS: Simvastatin 10 MG TAB PO (22:03)
[2023-06-23] VITALS (10 sets, daily range): BP systolic 108–140; BP diastolic 71–93; PULSE 86–101; RESP 16–22; TEMP 36–37; O2SAT 94–96; BMI 53.9
[2023-06-23] MEDS: VANCOMYCIN/WATER (PEG) 750 MG/150 ML BAG 100 MG IVPB ×2 (05:12→22:49)
[2023-06-23] MEDS: Levothyroxine 100 MCG TAB 200 MCG PO (05:12)
[2023-06-23 06:41] LABS: Abs Immature Grans 0.18 10^3/uL (0.0-0.06); Absolute Lymphocyte Count 1.77 10^3/uL (1.2-3.4); Absolute Monocyte Count 0.96 10^3/uL (0.1-0.8); Absolute Neutrophil Count 9.27 10^3/uL (1.2-6.7); Basophils % 0.8; HGB 11.6 g/dL (11.2-15.7); Immature Grans % 1.5; Lymphocytes % 14.3; MCH 27.6 pg (27.0-33.0); MCHC 32.2 % (32.0-36.0); MCV 86 fL (80-95); Monocytes % 7.7; Neutrophils % 74.7; Platelet Count 259 10^3/uL (130-400); RDW 14.7 % (11.7-14.6); RDW-SD 46.3 fL; WBC 12.41 10^3/uL (4.4-10.8)
[2023-06-23 06:42] LABS: Absolute Eosinophil Count 0.12 10^3/uL (0.0-0.7)
[2023-06-23 06:52] LABS: Anion Gap 9.2 mmol/L (3-11); BUN 15 mg/dL (7-18); CO2 22.8 mmol/L (21.0-32.0); CREATININE 0.8 mg/dL (0.55-1.02); Calcium 8.7 mg/dL (8.5-10.1); Chloride 101 mmol/L (98-107); Estimated GFR 88.05 (mL/min/1.73m2); Glucose 248 mg/dL (74-106); Magnesium 1.8 mg/dL (1.8-2.4); Sodium 133 mmol/L (136-145)
[2023-06-23 07:31] LABS: C-Reactive Protein 17.72 mg/dL (0.0-0.3)
[2023-06-23] MEDS: Lisinopril 10 MG TAB PO (08:42)
[2023-06-23] MEDS: buPROPion-CR 150 MG TABCR PO (08:43)
[2023-06-23] MEDS: Acetaminophen 325 MG TAB PO (08:43)
[2023-06-23] MEDS: Insulin Aspart 300 UNITS/3 ML PEN SC ×4 (08:44→22:10)
[2023-06-23] MEDS: PIPERACILLIN/TAZO 4.5 GM in Normal Saline 100 ML IVPB (08:54)
[2023-06-23] MEDS: Normal Saline 1,000 ML 125 ML IV (09:30)
[2023-06-23] MEDS: Ketorolac 30 MG/ML VIAL IVP (10:37)
--- NOTE | 2023-06-23 12:09 | W.PM.PROGNOT ---
Date of Service Date of service: 06/23/23 Time of Service: 12:00 Assessment and Plan Assessment and plan (1) Cellulitis and abscess of other specified site: Status: Acute Assessment and plan: Continue Zosyn and vancomycin Seen by surgery and taken to OR see that note BC pending MRSA + wound cx (2) Acidosis, lactic: Status: Acute Assessment and plan: Lactate 2.3 Trend (3) Diabetes mellitus, type II: Assessment and plan: A1C - 12.1 up from 8.7 on 07/2022 (4) Hypomagnesemia: Start date: 06/21/23 Status: Acute Assessment and plan: 1.8 Monitor (5) Hyponatremia: Start date: 06/21/23 Status: Acute Assessment and plan: NA 133 monitor (6) Hypertension: Assessment and plan: Continue outpatient medical therapy adjusting as needed during the acute stay. (7) Hypothyroidism (acquired): Assessment and plan: TSH 14.11 FT4 1.22 (8) MRSA (methicillin resistant staph aureus) culture positive: Status: Acute Assessment and plan: MRSA precautions - BC pending continue abx (9) DVT prophylaxis: Status: Acute Assessment and plan: Enoxaparin (10) Discharge planning issues: Status: Acute Assessment and plan: Home when stable - BC pending regarding outpt abx therefore still pending Discussed with Dr Brady Subjective Subjective Patient reports: no new complaints, pain is less, tolerating a regular diet, voiding w/o difficulty and afebrile; denies diarrhea, nausea, vomiting or shortness of breath Interval history since last seen: Awake and alert, states she is feeling better, wound is draining plan to go to OR today - she is in agreement to this plan. Exam Const General: comfortable and not ill appearing Nutritional Appearance: obese Orientation: alert, awake and oriented x3 HENMT Head: normal to inspection, normocephalic and atraumatic Mouth: oral mucosae normal Chest Chest: normal inspection of the chest Resp Effort & Inspection: normal respiratory effort Cardio Rate: regular rate Rhythm: regular rhythm Skin General skin exam: erythema Lesions: lesion noted (lesion open and draining, packed, large area of erythema surrounding wound ) Rashes: rashes noted Objective Last Vital Signs Temp 36.0 C L 06/23/23 22:18 Pulse 88 06/23/23 22:18 Resp 18 06/23/23 22:18 BP 118/73 08/17/23 22:18 Pulse Ox 95 06/23/23 22:18 Laboratory Results - last 24 hr 06/23/23 06/23/23 06/23/23 06:31 06:31 06:31 WBC RBC Hgb Hct MCV MCH MCHC RDW Plt Count MPV Immature Gran % Neutrophils % Lymphocytes % Monocytes % Eosinophils % Basophils % Nucleated RBC % Absolute Neutrophils Absolute Lymphocytes Absolute Monocytes Absolute Eosinophils Absolute Basophils VBG Lactate 1.0 Sodium Potassium Chloride Carbon Dioxide Anion Gap BUN Creatinine Est GFR (CKD-EPI 2020) Glucose Calcium Magnesium C-Reactive Protein 17.72 H Vancomycin Trough 33.0 H* 06/23/23 06/23/23 06:31 06:31 WBC 12.41 H RBC 4.20 Hgb 11.6 Hct 36.0 MCV 86 MCH 27.6 MCHC 32.2 RDW 14.7 H Plt Count 259 MPV 10.0 Immature Gran % 1.5 Neutrophils % 74.7 Lymphocytes % 14.3 Monocytes % 7.7 Eosinophils % 1.0 Basophils % 0.8 Nucleated RBC % 0.0 Absolute Neutrophils 9.27 H Absolute Lymphocytes 1.77 Absolute Monocytes 0.96 H Absolute Eosinophils 0.12 Absolute Basophils 0.10 VBG Lactate Sodium 133 L Potassium 4.0 Chloride 101 Carbon Dioxide 22.8 Anion Gap 9.2 BUN 15 Creatinine 0.8 Est GFR (CKD-EPI 2020) 88.05 Glucose 248 H Calcium 8.7 Magnesium 1.8 C-Reactive Protein Vancomycin Trough Time Spent with Patient Time Spent with Patient: 25-34 minutes Time was spent: preparing to see the patient(eg.review tests), ordering medications,tests, procedures, referring, communicating with other health post acute care nurse practitioner, indepentently interpreting results, counseling the patient and care coordination
--- NOTE | 2023-06-23 14:09 | W.PM.PROGNOT ---
Date of Service Date of service: 06/23/23 Time of Service: 14:09 Assessment and Plan Assessment and plan (1) MRSA (methicillin resistant staph aureus) culture positive: Status: Acute (2) Cellulitis and abscess of other specified site: Status: Acute (3) Cellulitis: Status: Acute (4) Acidosis, lactic: Status: Acute (5) Diabetes mellitus, type II: (6) Dyspnea on exertion: (7) Hypertension: (8) Hypothyroidism (acquired): (9) Obesity: (10) Obstructive sleep apnea (adult) (pediatric): (11) Smoker: (12) Sinusitis, chronic: Subjective Subjective Interval history since last seen: Patient is MRSA positive. She has a large abscess emanating from her axilla and onto the anterior chest wall. There is still significant amount of drainage. The skin is red/thickened/edematous. She did not tolerate the bedside I&D well. She does not need to go for further debridement today. Risks include bleeding, infection, pneumonia, blood clots, chronic pain or numbness, this will need to heal by secondary intent is going to be a long healing process. She may require further trips to the OR for wound care, anesthesia. Exam Const General: anxious Orientation: alert, awake and oriented x3 Other: Lungs are clear to auscultation Heart is regular rate and rhythm Abdomen is morbidly obese and nontender Objective Last Vital Signs Temp 36.7 C 06/23/23 10:40 Pulse 94 H 06/23/23 10:40 Resp 16 06/23/23 10:40 BP 118/71 06/23/23 10:40 Pulse Ox 95 06/23/23 10:40 Laboratory Results - last 24 hr 06/23/23 06/23/23 06/23/23 06:31 06:31 06:31 WBC RBC Hgb Hct MCV MCH MCHC RDW Plt Count MPV Immature Gran % Neutrophils % Lymphocytes % Monocytes % Eosinophils % Basophils % Nucleated RBC % Absolute Neutrophils Absolute Lymphocytes Absolute Monocytes Absolute Eosinophils Absolute Basophils VBG Lactate 1.0 Sodium Potassium Chloride Carbon Dioxide Anion Gap BUN Creatinine Est GFR (CKD-EPI 2020) Glucose Calcium Magnesium C-Reactive Protein 17.72 H Vancomycin Trough 33.0 H* 06/23/23 06/23/23 06:31 06:31 WBC 12.41 H RBC 4.20 Hgb 11.6 Hct 36.0 MCV 86 MCH 27.6 MCHC 32.2 RDW 14.7 H Plt Count 259 MPV 10.0 Immature Gran % 1.5 Neutrophils % 74.7 Lymphocytes % 14.3 Monocytes % 7.7 Eosinophils % 1.0 Basophils % 0.8 Nucleated RBC % 0.0 Absolute Neutrophils 9.27 H Absolute Lymphocytes 1.77 Absolute Monocytes 0.96 H Absolute Eosinophils 0.12 Absolute Basophils 0.10 VBG Lactate Sodium 133 L Potassium 4.0 Chloride 101 Carbon Dioxide 22.8 Anion Gap 9.2 BUN 15 Creatinine 0.8 Est GFR (CKD-EPI 2020) 88.05 Glucose 248 H Calcium 8.7 Magnesium 1.8 C-Reactive Protein Vancomycin Trough Time Spent with Patient Time Spent with Patient: 25-34 minutes Time was spent: preparing to see the patient(eg.review tests), obtaining and/or reviewing separately otained hiistory, ordering medications,tests, procedures, referring, communicating with other health post acute care nurse, indepentently interpreting results, counseling the patient and care coordination
--- NOTE | 2023-06-23 14:19 | ANES.PREOP_ITS ---
General Info Date of Service Date Performed: 06/23/23 Height: 4 ft 10 in Weight: 117.1 kg Body Mass Index (BMI): 53.9 Surgical Procedure: Operation Date: 06/23/23 15:10 Proposed Procedure Side Surgeon p I&D Axilla Right Idalia Boothe, Meds Allergies and Home Medications Allergies Allergy/AdvReac Type Severity Reaction Status Date / Time bee pollen [Bee Pollen] Allergy Severe Swelling/Ed Verified 06/21/23 22:39 ifrah metformin AdvReac Other (See Unverified 06/21/23 22:39 Comment) Home Medication Medication Instructions Recorded epinephrine 0.3 mg/0.3 mL 0.3 mg IM DIRECTED 05/22/14 injection, auto-injector (EpiPen 2-Kalyan) ibuprofen 800 mg tablet 800 mg PO PRN 05/22/14 levothyroxine 175 mcg tablet 200 mcg PO DAILY 05/22/14 lisinopril 10 mg tablet 10 mg PO QAM 05/22/14 ropinirole 3 mg tablet (Requip) 1 tab PO HS 05/22/14 simvastatin 10 mg tablet 10 mg PO HS 05/22/14 blood sugar diagnostic (FreeStyle 02/17/18 Lite Strips) bupropion HCl 150 mg tablet,12 hr 150 mg PO DAILY 02/17/18 sustained-release (Wellbutrin SR) citalopram 20 mg tablet (Celexa) 20 mg PO DAILY 02/17/18 sitagliptin phosphate 50 mg tablet 50 mg PO DAILY 10/28/22 (Januvia) cephalexin 500 mg capsule 500 mg PO QID #40 caps 06/19/23 sulfamethoxazole 800 1 tab PO BID #20 tabs 06/19/23 mg-trimethoprim 160 mg tablet (Bactrim DS) Current Visit Medications: Current Medications Generic Name Dose Route Start Last Admin Trade Name Freq PRN Reason Stop Dose Admin Acetaminophen 325 - 650 mg 06/21/23 23:45 06/23/23 08:43 Acetaminophen 325 Mg Tab PO 325 mg Q4H PRN PRN Administration Al Hydrox/Mg Hydrox/Simethicone 30 ml 06/21/23 21:53 Mylanta Suspension 30 Ml Cup PO Q2H PRN PRN Bupropion HCl 150 mg 06/22/23 08:30 06/23/23 08:43 Bupropion-Cr 150 Mg Tabcr PO 150 mg DAILY JACQUELINE Administration Dextrose 0 gm 06/21/23 22:01 Glucose Oral Gel 15 Gm/37.5 Gm Tube PO DIRECTED PRN Dextrose/Water 0 gm 06/21/23 22:01 Dextrose 50%-Water 25 Gm/50 Ml Syr IVP DIRECTED PRN Dimethicone/Zinc Oxide 0 gm 06/21/23 21:53 Angy Protect Cream 142 Gm Tube TP PRN PRN Docusate Sodium 100 mg 06/21/23 21:53 Docusate Sodium 100 Mg Cap PO TID PRN PRN Enoxaparin Sodium 40 mg 06/21/23 22:00 06/22/23 22:03 Enoxaparin 40 Mg/0.4 Ml Syr SC 40 mg Q24H JACQUELINE Administration Sodium Chloride 1,000 mls @ 125 mls/hr 06/21/23 16:30 06/23/23 09:30 Saline 1000ml Bag IV 125 mls/hr INFUSION JACQUELINE Administration Piperacillin Sod/Tazobactam 100 mls @ 25 mls/hr 06/22/23 00:00 06/23/23 08:54 Sod 4.5 gm/ Sodium Chloride IVPB 25 mls/hr Q8H JACQUELINE Administration Vancomycin/PEG/NADA/Lysine/Water 750 mg in 150 mls @ 100 mls/hr 06/22/23 14:00 06/23/23 08:45 Vancocin Injection IVPB Infused Q8H JACQUELINE Infusion IV Miscellaneous Supplies 1 each 06/21/23 16:30 Iv Access-Emergency Dept IV DIRECTED [facility] Insulin Aspart 0 - 18 units 06/22/23 07:30 06/23/23 12:21 Insulin Aspart 300 Units/3 Ml Pen SC 2 units AC & HS JACQUELINE Administration Protocol Ketorolac Tromethamine 30 mg 06/21/23 22:11 06/23/23 10:37 Ketorolac 30 Mg/Ml Vial IVP 06/26/23 22:10 30 mg Q6H PRN PRN Administration Levothyroxine Sodium 200 mcg 06/22/23 06:00 06/23/23 05:12 Levothyroxine 100 Mcg Tab PO 200 mcg 0600 JACQUELINE Administration Lidocaine HCl 20 ml 06/22/23 12:45 Lidocaine 2% Multi-Dose 20 Ml Vial IJ DIRECTED JACQUELINE Lisinopril 10 mg 06/22/23 08:30 06/23/23 08:42 Lisinopril 10 Mg Tab PO 10 mg QAM JACQUELINE Administration Magnesium Hydroxide 30 ml 06/21/23 21:53 Milk Of Magnesia 30 Ml Cup PO DAILY PRN PRN Polyethylene Glycol 17 gm 06/21/23 21:53 Polyethylene Glycol 3350 17 Gm Packet PO DAILY PRN PRN Constipation Ropinirole HCl 3 mg 06/22/23 00:00 06/22/23 22:03 Ropinirole 1 Mg Tab PO 3 mg HS JACQUELINE Administration Simvastatin 10 mg 06/22/23 22:00 06/22/23 22:03 Simvastatin 10 Mg Tab PO 10 mg HS JACQUELINE Administration Sodium Chloride 0 ml 06/21/23 16:16 06/22/23 13:09 Normal Saline Flush 10 Ml Syr IVP 30 ml PRN PRN Administration PFSH Active Problems Active Problems: Problem Status Onset Code DVT prophylaxis Z29.9 Discharge planning issues Z02.9 MRSA (methicillin resistant staph aureus) culture positive Z22.322 Hypomagnesemia E83.42 Hyponatremia E87.1 Cellulitis and abscess of other specified site L03.818, L02.818 Diarrhea R19.7 Cellulitis L03.90 Acute hyperglycemia R73.9 Acidosis, lactic E87.20 Medical History Medical History (Updated 06/22/23 @ 21:10 by Gabby Brewster NP) Bone spur Diabetes mellitus, type II Dyspnea on exertion Female stress incontinence Hypertension Hypothyroidism (acquired) Irregular heart rate Obesity Obstructive sleep apnea (adult) (pediatric) Restless leg syndrome Sinusitis, chronic Smoker Surgical History Surgical History (Updated 06/23/23 @ 08:01 by Paige Chavez) History of section S/P hernia repair Status post incision and drainage (~06/2023) Tobacco Smoking/Tobacco Use Status: Current every day Tobacco Type: e-cigarettes Alcohol Alcohol Intake: current Alcohol intake frequency: a few times a month Substance Use Substance use: Occasionally Substance use type: marijuana Vital Signs and Lab Results Vital Signs Most Recent Vital Signs in EMR: Most Recent Vital Signs Temp Pulse Resp BP Pulse Ox 36.7 C 94 H 16 118/71 95 06/23/23 10:40 06/23/23 10:40 06/23/23 10:40 06/23/23 10:40 06/23/23 10:40 Point of Care Results Point of Care Results: Finger Stick Blood Glucose 148 06/23/23 12:21 Lab Results 06/23/23 06:31 06/23/23 06:31 Blood Type / Crossmatch: No Data to Display Complete Blood Count: White Blood Count 12.41 10^3/uL (4.4-10.8) H 06/23/23 06:31 Red Blood Count 4.20 10^6/uL (3.93-5.22) 06/23/23 06:31 Hemoglobin 11.6 g/dL (11.2-15.7) 06/23/23 06:31 Hematocrit 36.0 % (36.0-46.0) 06/23/23 06:31 Platelet Count 259 10^3/uL (130-400) 06/23/23 06:31 Venous Blood Lactate 1.0 mmol/L (0.6-1.4) 06/23/23 06:31 Complete Metabolic Panel: Sodium 133 mmol/L (136-145) L 06/23/23 06:31 Potassium 4.0 mmol/L (3.5-5.1) 06/23/23 06:31 Chloride 101 mmol/L (98-107) 06/23/23 06:31 Carbon Dioxide 22.8 mmol/L (21.0-32.0) 06/23/23 06:31 BUN 15 mg/dL (7-18) 06/23/23 06:31 Creatinine 0.8 mg/dL (0.55-1.02) 06/23/23 06:31 Est GFR (CKD-EPI 2020) 88.05 (mL/min/1.73m2) 06/23/23 06:31 Magnesium 1.8 mg/dL (1.8-2.4) 06/23/23 06:31 Calcium 8.7 mg/dL (8.5-10.1) 06/23/23 06:31 Albumin 2.3 g/dL (3.4-5.0) L 06/22/23 06:55 Glucose 248 mg/dL (74-106) H 06/23/23 06:31 Hemoglobin A1c 12.1 % (<5.7) H 06/22/23 06:55 C-Reactive Protein 17.72 mg/dL (0.0-0.3) H 06/23/23 06:31 Liver Function Panel: Alanine Aminotransferase (ALT/SGPT) 17 U/L (14-59) 06/22/23 06: 55 Aspartate Amino Transf (AST/SGOT) 14 U/L (15-37) L 06/22/23 06: 55 Coagulation Panel: INR International Normalized Ratio 1.0 (0.9-1.1) 06/21/23 17:0 0 Prothrombin Time 9.9 sec (9.3-11.0) 06/21/23 17:00 Cardiac Panel: Troponin I < 50 ng/L (<or=60) 06/22/23 Arterial Blood Gas: No Data to Display Venous Blood Gas: No Data to Display Pancreas Panel: No Data to Display Thyroid Panel: Thyroid Stimulating Hormone (TSH) 14.11 uIU/mL (0.36-3.74) H 06/21/23 16:18 Infectious Disease: No Data to Display Blood Cultures: No Data to Display Toxicology Panel: No Data to Display Panel: No Data to Display Imaging and Studies Imaging and Studies Study information below may be from another EMR and interpreted by another provider. Please see original notes in EMR for more complete details. EKG Summary: DATE/TIME OF SERVICE: 06/21/231739 : 1970PERFORMING LOCATION: [place] APPROVED REPORT Exam: Resting ECG Reason for Exam: md request Patient Location: E HR:110 bpm ECG Measurements Heart Rate 110 AXIS IA 167 P 66 QRSd 75 QRS 42 QT 336 T41 QTc 456 Conclusion Sinus tachycardia...rate> 99 Anterior infarct, old...Q >40mS, abnormal ST-T, V2-V5 Q waves inV1-V4 (old) no STEMI, axis shift from previous Anesthesia Assessment and Plan Anesthesia History Personal History: No History of Anesthesia Complications Family History: No Family History of Anesthesia Complications Exercise Tolerance Exercise Tolerance: Metabolic Equivalents>4 Pertinent Negatives Pertinent Negatives: No Symptoms of GERD, No Major Cardiovascular Symptoms or Complaints and No Major Pulmonary Symptoms or Complaints Cardiac & Pulmonary Exam Cardiac Exam: Normal S1/S2 Heart Sounds Pulmonary Exam: Clear Bilateral Breath Sounds Implantable Cardiac Device Does patient have a Pacemaker or an ICD?: No Airway Exam Known Difficult Airway: No Mallampati Class: 2 Mouth Opening: Normal (> 3cm) Thyromental Distance: Less than 3 cm Neck Range of Motion: Full ROM Neck Circumference: Normal Teeth Condition: Edentulous ASA Classification ASA Score: ASA 3 Emergency Case?: Yes NPO Status NPO Status: NPO Clears >2 hours, Solids >8 hours Status Status: Not Relevant due to Medical History Anesthesia Plan Resuscitation Status: Full Code Anesthesia Technique: General Anesthesia Airway Planned: Endotracheal Tube Monitors Used: Standard Monitors
[2023-06-23] MEDS: Normal Saline 1,000 ML 30 ML IV (15:18)
[2023-06-23] MEDS: Lidocaine 1% Multi-Dose W/EPI 1/100,000 50 ML VIAL (15:47)
--- NOTE | 2023-06-23 16:27 | W.ANESPOSTOP ---
Postoperative Evaluation Date, Time and Location Date Performed: 06/23/23 Time Performed: 16:27 Patient Location: PACU Vital Signs Most Recent Imported Vital Signs: Most Recent Vital Signs Temp Pulse Resp BP Pulse Ox 36.5 C 94 H 19 130/93 H 95 06/23/23 16:19 06/23/23 16:19 06/23/23 16:19 06/23/23 16:19 06/23/23 16:19 Pain Score Most Recent Pain Score: Most Recent Pain Score Pain Level 2 06/23/23 1628 Assessment Mental Status: Awake (Alert & Oriented to Patient Baseline) Airway and Respiratory Function: Patent airway with normal (patient baseline) respiratory exam Cardiovascular Function: Hemodynamically Stable Hydration Status: Adequately Hydrated Nausea & Vomiting: No Nausea or Vomiting Pain: Pain is tolerable per patient Peripheral Nerve Block: Patient did not receive a nerve block Postoperative Comments:: Pt awake and doing well, joking and smiling.
--- NOTE | 2023-06-23 17:08 | W.PM.OP ---
Date of service: 06/23/23 Time of Service: 17:09 Operative Note Operative Note DATE OF PROCEDURE: 06/22/23 PRE-OP DIAGNOSIS: right axillary/chest wall abscess POST-OP DIAGNOSIS: same PROCEDURE: incision adn drainage SURGEON: Idalia Boothe ANESTHESIA TYPE: Local By Surgeon and General LMA/ETT Refer to Anesthesia Record ESTIMATED BLOOD LOSS: 10 PATHOLOGY: none sent COMPLICATIONS: None Patient was transported to: PACU Patient's condition: stable Procedure Description: Patient is a 52-year-old white female who is an obese, diabetic, smoker with a large right axillary and chest wall abscess. Dr. Biggs did drain it at bedside. There still continues to be a significant amount of purulent drainage. Patient complains of pain. Cultures are positive for MRSA and she is on vancomycin. Patient will be taken down to the OR for incision and drainage. Informed consent is obtained explaining risks and benefits of the procedure including but not limited to: Bleeding, infection, pneumonia, blood clots, complications of anesthesia, scarring and disfigurement, need to heal by secondary intent and with daily dressing changes, recurrence of this. Patient is brought to the operative room suite and placed in the supine position. Anesthesia is administered per the department of anesthesia. She is on preop antibiotics. Arm is extended and all surfaces are padded. Is prepped and draped in the usual sterile fashion using a Betadine scrub solution. Timeout is performed. 30 cc 1% lidocaine is used for local anesthesia. The area of the cavity is opened up creating a 3 elliptical incision using a #15 blade. There is still a significant amount of purulent discharge probably 300 cc. The abscess extends down into the arm to the biceps, up to the deltoids, over into the pectoral muscles and down the chest wall onto the latissimus. It also extends into the breast itself. The entire cavity is 20 x 8 x 4 cm. she does have a significant amount of redundant soft tissue. A [employer] curette is removed used to remove all nonviable tissue. It is irrigated with a liter of saline. Pressures used to provide hemostasis. It is packed with a 2 inch plain gauze. And pressure dressing is applied. Patient tolerated the procedure well and transferred to the recovery room in stable condition. She was apprised of the findings at the time of surgery.
--- NOTE | 2023-06-23 18:15 | CMPROGNOTE_ITS ---
Date of service: 06/23/23 Time of Service: 18:16 Care Management Progress Note Progress Note Text Progress Note Text: S/O: Tabatha was sitting up in bed when CM met with her. She stated that she did ok with the bedside I&D of her wound yesterday by the surgeon. Per report, she did not require going to the OR today for further debridement, although she is being closely monitored. Her BC are pending, which will determine her antibiotic course. CM will continue to follow. A: Tabatha is a 52 year old female admitted to [facility] on 06/21/23 for cellulitis with abscess. P: Anticipate Tabatha will return home when medically cleared. She may benefit from HH RN for wound care, as well as possible mcfp IV abx. She will be driven home via private vehicle by family. She will follow up with her PCP and discharge plan of care. CM will continue to follow.
--- NOTE | 2023-06-23 21:58 | NUR.NOTE ---
Pharmacy Notification with critical vanco trought from am of 06/23/23. discussed vanco trough from this am. They reported this is a random level. discussed current planned dose is 750mg. pt previously on 1000mg vancomycin. pt received a 750mg dose this am before the random trough. i notified pharmacy that the 750mg x1 dose was given prior to the random trough. They confirmed with me to hold the 2200 dose, and they will be looking into it. further at this time. Nursing Note:
[2023-06-23] MEDS: rOPINIRole 1 MG TAB 3 MG PO (22:05)
[2023-06-23] MEDS: Acetaminophen 500 MG TAB 1000 MG PO (22:10)
[2023-06-23] MEDS: Simvastatin 10 MG TAB PO (22:10)
[2023-06-23] MEDS: Enoxaparin 40 MG/0.4 ML SYR SC (22:11)
--- NOTE | 2023-06-23 22:21 | NUR.NOTE ---
Vancomycin Note. Despite previous note. pharmacy says to continue vanocmycin at 750mg dosage. Nursing Note:
[2023-06-24] MEDS: Levothyroxine 100 MCG TAB 200 MCG PO (05:26)
[2023-06-24] MEDS: VANCOMYCIN/WATER (PEG) 750 MG/150 ML BAG 100 MG IVPB (05:27)
[2023-06-24] MEDS: Methocarbamol 750 MG TAB PO ×2 (05:27→19:17)
[2023-06-24] MEDS: Acetaminophen 500 MG TAB 1000 MG PO ×3 (05:27→22:24)
[2023-06-24 05:35] VITALS: BP 130/83; PULSE 84; RESP 20; TEMP 36.2; O2SAT 96
[2023-06-24 06:37] LABS: Abs Immature Grans 0.22 10^3/uL (0.0-0.06); Absolute Basophil Count 0.07 10^3/uL (0.0-0.2); Absolute Eosinophil Count 0.08 10^3/uL (0.0-0.7); Absolute Lymphocyte Count 1.74 10^3/uL (1.2-3.4); Absolute Monocyte Count 0.71 10^3/uL (0.1-0.8); Absolute Neutrophil Count 7.03 10^3/uL (1.2-6.7); Basophils % 0.7; Eosinophils % 0.8; HCT 35.8 % (36.0-46.0); HGB 11.3 g/dL (11.2-15.7); Immature Grans % 2.2; Lymphocytes % 17.7; MCHC 31.6 % (32.0-36.0); MCV 86 fL (80-95); MPV 10.3 fL (8.0-11.0); Monocytes % 7.2; Neutrophils % 71.4; Platelet Count 280 10^3/uL (130-400); RBC 4.18 10^6/uL (3.93-5.22); RDW 14.7 % (11.7-14.6); RDW-SD 46.4 fL; WBC 9.85 10^3/uL (4.4-10.8)
[2023-06-24 06:49] LABS: Anion Gap 10.9 mmol/L (3-11); BUN 13 mg/dL (7-18); C-Reactive Protein 8.46 mg/dL (0.0-0.3); CO2 22.1 mmol/L (21.0-32.0); CREATININE 0.7 mg/dL (0.55-1.02); Chloride 104 mmol/L (98-107); Estimated GFR 103.35 (mL/min/1.73m2); Glucose 266 mg/dL (74-106); Magnesium 1.9 mg/dL (1.8-2.4); Potassium 4.6 mmol/L (3.5-5.1); Sodium 137 mmol/L (136-145)
[2023-06-24 07:54] VITALS: BP 130/86; PULSE 85; RESP 22; TEMP 36.7
[2023-06-24] MEDS: Insulin Aspart 300 UNITS/3 ML PEN SC ×4 (08:10→22:26)
[2023-06-24] MEDS: buPROPion-CR 150 MG TABCR PO (08:29)
[2023-06-24] MEDS: Polyethylene Glycol 3350 17 GM PACKET PO (08:29)
[2023-06-24] MEDS: Lisinopril 10 MG TAB PO (08:29)
--- NOTE | 2023-06-24 09:26 | W.PM.PROGNOT ---
Date of Service Date of service: 06/24/23 Time of Service: 09:26 Assessment and Plan Assessment and plan (1) MRSA (methicillin resistant staph aureus) culture positive: Status: Acute (2) Cellulitis and abscess of other specified site: Status: Acute Assessment and plan: Postop day 1 status post surgical I&D in the OR. Continue IV antibiotics and wound care. Encouraged activity as tolerated. Ambulation and sitting in the chair throughout the day. (3) Cellulitis: Status: Acute (4) Acidosis, lactic: Status: Resolved (5) Diabetes mellitus, type II: (6) Dyspnea on exertion: (7) Hypertension: (8) Hypothyroidism (acquired): (9) Obesity: (10) Obstructive sleep apnea (adult) (pediatric): (11) Smoker: (12) Sinusitis, chronic: Subjective Subjective Interval history since last seen: Arrived with Tabatha sitting up in bed comfortably. She states that her right lateral breast/axilla is tender this morning. She states that it continues to drain and she recently had to change her towel. Exam Const General: cooperative, healthy appearing and comfortable Orientation: alert and oriented x3 Resp Effort & Inspection: normal respiratory effort, no audible wheezes and no cough Skin Other: Dressing was taken down to evaluate I&D site. Very localized erythema around the I&D site with induration. This was exquisitely tender with palpation. A moderate amount of purulent/serosanguineous drainage was noted on the dressing. Objective Last Vital Signs Temp 36.7 C 06/24/23 07:54 Pulse 85 06/24/23 07:54 Resp 22 06/24/23 07:54 BP 130/86 06/24/23 07:54 Pulse Ox 96 06/24/23 05:35 Laboratory Results - last 24 hr 06/24/23 06/24/23 06:05 06:05 WBC 9.85 RBC 4.18 Hgb 11.3 Hct 35.8 L MCV 86 MCH 27.0 MCHC 31.6 L RDW 14.7 H Plt Count 280 MPV 10.3 Immature Gran % 2.2 Neutrophils % 71.4 Lymphocytes % 17.7 Monocytes % 7.2 Eosinophils % 0.8 Basophils % 0.7 Nucleated RBC % 0.0 Absolute Neutrophils 7.03 H Absolute Lymphocytes 1.74 Absolute Monocytes 0.71 Absolute Eosinophils 0.08 Absolute Basophils 0.07 Sodium 137 Potassium 4.6 Chloride 104 Carbon Dioxide 22.1 Anion Gap 10.9 BUN 13 Creatinine 0.7 Est GFR (CKD-EPI 2020) 103.35 Glucose 266 H Calcium 9.0 Magnesium 1.9 C-Reactive Protein 8.46 H Time Spent with Patient Time Spent with Patient: 25-34 minutes Time was spent: preparing to see the patient(eg.review tests), obtaining and/or reviewing separately otained hiistory, ordering medications,tests, procedures, referring, communicating with other health healthcare financial analyst, indepentently interpreting results, counseling the patient and care coordination
[2023-06-24 11:35] VITALS: BP 135/98; PULSE 95; RESP 20; TEMP 36.5; O2SAT 97
[2023-06-24] MEDS: Ketorolac 30 MG/ML VIAL 15 MG IVP ×2 (11:56→17:35)
[2023-06-24] MEDS: Normal Saline Flush 10 ML SYR IVP ×4 (11:57→19:17)
[2023-06-24] MEDS: MORPHine 2 MG/ML SYR IVP (13:45)
[2023-06-24 13:46] LABS: Vancomycin, Trough 10.8 ug/mL (10.0-20.0)
--- NOTE | 2023-06-24 14:45 | DI.RAD_ITS ---
Exam(s) XR LINE PLACEMENT PICC/CVA EXAM: XR LINE PLACEMENT PICC/CVA CLINICAL HISTORY: post PICC placement. TECHNIQUE: 2D digital imaging was performed. COMPARISON: No exams were available for comparison FINDINGS: Single AP portable view Mild cardiomegaly. Mediastinum not widened. Increased interstitial markings both lung doyle. No pleural effusions. No pneumothorax. There is a left sided PICC line now evident. Its distal tip is in the right atrium and should be ret racted into the SVC. IMPRESSION: As above. Recommend pulling back the PICC line into the SVC. It is presently in the right atrium. DATA REPOSITORY: RADIATION DOSE DELIVERED:
--- NOTE | 2023-06-24 15:09 | W.PM.PROGNOT ---
Date of Service Date of service: 06/24/23 Time of Service: 10:30 Assessment and Plan Assessment and plan (1) Cellulitis and abscess of other specified site: Status: Acute Assessment and plan: Continue Zosyn and vancomycin Surgery tending to wound and dsg changes BC pending - neg to date MRSA + by wound cx (2) Acidosis, lactic: Status: Resolved Assessment and plan: Lactate 1.0 (3) Diabetes mellitus, type II: Assessment and plan: A1C - 12.1 up from 8.7 on 07/2022 Sliding scale (4) Hypomagnesemia: Start date: 06/21/23 Status: Resolved Assessment and plan: 1.9 Monitor (5) Hyponatremia: Start date: 06/21/23 Status: Resolved Assessment and plan: NA 137 monitor (6) Hypertension: Assessment and plan: Continue outpatient medical therapy adjusting as needed during the acute stay. (7) Hypothyroidism (acquired): Assessment and plan: TSH 14.11 FT4 1.22 (8) MRSA (methicillin resistant staph aureus) culture positive: Status: Acute Assessment and plan: MRSA precautions - BC pending - neg to date continue abx (9) DVT prophylaxis: Status: Acute Assessment and plan: Enoxaparin (10) Discharge planning issues: Status: Acute Assessment and plan: Home when stable and ok per surgery- BC pending regarding outpt abx Discussed with Dr Brady Subjective Subjective Patient reports: no new complaints, tolerating a regular diet, voiding w/o difficulty and afebrile; denies diarrhea, nausea, vomiting or shortness of breath Interval history since last seen: Supine in bed, reports pain is less - surgery doing dsg changes and following wounds Exam Const General: comfortable and not ill appearing Nutritional Appearance: obese Orientation: alert, awake and oriented x3 HENMT Head: normal to inspection, normocephalic and atraumatic Mouth: oral mucosae normal Chest Chest: normal inspection of the chest Resp Effort & Inspection: normal respiratory effort Cardio Rate: regular rate Rhythm: regular rhythm Skin General skin exam: erythema Lesions: lesion noted (lesion open and draining, packed, large area of erythema surrounding wound ) Rashes: rashes noted Objective Last Vital Signs Temp 36.2 C L 06/24/23 16:39 Pulse 76 06/24/23 16:39 Resp 20 06/24/23 16:39 BP 114/75 06/24/23 16:39 Pulse Ox 96 06/24/23 16:39 Laboratory Results - last 24 hr 06/24/23 06/24/23 06/24/23 06:05 06:05 13:20 WBC 9.85 RBC 4.18 Hgb 11.3 Hct 35.8 L MCV 86 MCH 27.0 MCHC 31.6 L RDW 14.7 H Plt Count 280 MPV 10.3 Immature Gran % 2.2 Neutrophils % 71.4 Lymphocytes % 17.7 Monocytes % 7.2 Eosinophils % 0.8 Basophils % 0.7 Nucleated RBC % 0.0 Absolute Neutrophils 7.03 H Absolute Lymphocytes 1.74 Absolute Monocytes 0.71 Absolute Eosinophils 0.08 Absolute Basophils 0.07 Sodium 137 Potassium 4.6 Chloride 104 Carbon Dioxide 22.1 Anion Gap 10.9 BUN 13 Creatinine 0.7 Est GFR (CKD-EPI 2020) 103.35 Glucose 266 H Calcium 9.0 Magnesium 1.9 C-Reactive Protein 8.46 H Vancomycin Trough 10.8 Time Spent with Patient Time Spent with Patient: 25-34 minutes Time was spent: preparing to see the patient(eg.review tests), ordering medications,tests, procedures, referring, communicating with other health health care / medical job titles, indepentently interpreting results, counseling the patient and care coordination
--- NOTE | 2023-06-24 15:23 | DI.RAD_ITS ---
Exam(s) XR PORTABLE CHEST AP POST LINE EXAM: XR PORTABLE CHEST AP POST LINE CLINICAL HISTORY: post PICC line. TECHNIQUE: 2D digital imaging was performed. COMPARISON: CR XR LINE PLACEMENT PICC/CVA from 06/24/2023 FINDINGS: Single AP portable view. Heart size unchanged. Interstitial markings in both lung doyle again noted. No pleural effusions. PICC line is been retracted into the SVC. Satisfactory position IMPRESSION: PICC line is in satisfactory position in the lower SVC DATA REPOSITORY: RADIATION DOSE DELIVERED:
[2023-06-24] MEDS: VANCOMYCIN/WATER (PEG) 1 GM/200 ML BAG IVPB ×2 (15:28→22:23)
[2023-06-24] MEDS: LORazepam 2 MG/ML VIAL 1 MG IVP (15:29)
[2023-06-24] MEDS: HYDROmorphone 2 MG/ML SYR 1 MG IVP (15:29)
[2023-06-24 16:39] VITALS: BP 114/75; PULSE 76; RESP 20; TEMP 36.2; O2SAT 96
--- NOTE | 2023-06-24 17:52 | CMPROGNOTE_ITS ---
Date of service: 06/24/23 Time of Service: 17:52 Care Management Progress Note Progress Note Text Progress Note Text: S/O: Tabatha was having a PICC line placed when CM attempted to visit with her. She was taken to the OR for I&D yesterday. Per report, her wound is large and draining. Her antibiotic course is unclear at this time. CM will review options with Tabatha once this information is available. CM will continue to follow. A: Tabatha is a 52 year old female admitted to [facility] on 06/21/23 for cellulitis with abscess. P: Anticipate Tabatha will return home when medically cleared. She may benefit from HH RN for wound care, as well as possible nursing home IV abx. She will be driven home via private vehicle by family. She will follow up with her PCP and discharge plan of care. CM will continue to follow.
[2023-06-24 19:27] VITALS: BP 116/72; PULSE 85; RESP 22; TEMP 35.9; O2SAT 92
--- NOTE | 2023-06-24 21:39 | W.PM.PROGNOT ---
Date of Service Date of service: 06/24/23 Time of Service: 16:00 Assessment and Plan Assessment and plan (1) MRSA (methicillin resistant staph aureus) culture positive: Status: Acute Assessment and plan: Vanco (2) Cellulitis and abscess of other specified site: Status: Acute Assessment and plan: R axillary/chest wall abscess- POD# 1 DVT: lovenox Abx: VAnco D#2 PICC placed for access. Cultures reviewed in [facility] Glucose control per hospitalist wound care : pack daily wet to dry (3) Cellulitis: Status: Acute (4) Acute hyperglycemia: Status: Acute (5) Diabetes mellitus, type II: (6) Hypertension: (7) Hypothyroidism (acquired): (8) Obesity: (9) Obstructive sleep apnea (adult) (pediatric): (10) Restless leg syndrome: (11) Smoker: Subjective Subjective Interval history since last seen: Pt is doing well. no headaches. No CP or SOB. no productive cough. no dysuria. no leg pain or swelling. PICC line placed Exam Const General: cooperative, comfortable and no acute distress Nutritional Appearance: obese Orientation: alert, awake and oriented x3 Other: PHYSICAL EXAM GENERAL APPEARANCE: Alert, healthy appearance, oriented, x 3,? in no acute distress HYDRATION: Well hydrated HEAD, EYES, EARS, NECK, THROAT: Head is normocephalic, pupils equal, round, reactive to light and accommodation, ocular movement intact, sclera clear and no jaundice. ?Dentition - none No thrush LUNGS: normal respiration/normal chest excursion. ?Clear to auscultation bilaterally. ?No wheeze. ?HEART: Regular rate and rhythm. no murmurs EXTREMITY: No edema or cyanosis.? no leg pain, redness, swelling.? ABDOMEN: soft and non-tender to palpation.? Normal bowel sounds.? Wound: less redness and swelling appears clean. No granulation tissue . re packed. pt tolerated Objective Last Vital Signs Temp 35.9 C L 06/24/23 19:27 Pulse 85 06/24/23 19:27 Resp 22 06/24/23 19:27 BP 116/72 06/24/23 19:27 Pulse Ox 92 06/24/23 19:27 Laboratory Results - last 24 hr 06/24/23 06/24/23 06/24/23 06:05 06:05 13:20 WBC 9.85 RBC 4.18 Hgb 11.3 Hct 35.8 L MCV 86 MCH 27.0 MCHC 31.6 L RDW 14.7 H Plt Count 280 MPV 10.3 Immature Gran % 2.2 Neutrophils % 71.4 Lymphocytes % 17.7 Monocytes % 7.2 Eosinophils % 0.8 Basophils % 0.7 Nucleated RBC % 0.0 Absolute Neutrophils 7.03 H Absolute Lymphocytes 1.74 Absolute Monocytes 0.71 Absolute Eosinophils 0.08 Absolute Basophils 0.07 Sodium 137 Potassium 4.6 Chloride 104 Carbon Dioxide 22.1 Anion Gap 10.9 BUN 13 Creatinine 0.7 Est GFR (CKD-EPI 2020) 103.35 Glucose 266 H Calcium 9.0 Magnesium 1.9 C-Reactive Protein 8.46 H Vancomycin Trough 10.8 Time Spent with Patient Time Spent with Patient: 25-34 minutes Time was spent: preparing to see the patient(eg.review tests), obtaining and/or reviewing separately otained hiistory, ordering medications,tests, procedures, referring, communicating with other health multi care technician, indepentently interpreting results, counseling the patient and care coordination
[2023-06-24] MEDS: rOPINIRole 1 MG TAB 3 MG PO (22:24)
[2023-06-24] MEDS: Enoxaparin 40 MG/0.4 ML SYR SC (22:24)
[2023-06-24] MEDS: Simvastatin 10 MG TAB PO (22:24)
[2023-06-24 22:42] VITALS: BP 125/85; PULSE 90; RESP 20; TEMP 36.4; O2SAT 91
[2023-06-25] MEDS: VANCOMYCIN/WATER (PEG) 1 GM/200 ML BAG IVPB ×3 (05:54→21:08)
[2023-06-25] MEDS: Acetaminophen 500 MG TAB 1000 MG PO ×3 (05:55→21:08)
[2023-06-25] MEDS: Levothyroxine 100 MCG TAB 200 MCG PO (05:55)
[2023-06-25 06:01] VITALS: BP 141/89; PULSE 85; RESP 18; TEMP 36.5; O2SAT 96
[2023-06-25 07:16] LABS: Absolute Basophil Count 0.06 10^3/uL (0.0-0.2); Absolute Eosinophil Count 0.13 10^3/uL (0.0-0.7); Absolute Monocyte Count 0.55 10^3/uL (0.1-0.8); Absolute Neutrophil Count 5.44 10^3/uL (1.2-6.7); Basophils % 0.8; Eosinophils % 1.6; HGB 11.5 g/dL (11.2-15.7); Immature Grans % 2.5; MCH 27.6 pg (27.0-33.0); MCHC 31.9 % (32.0-36.0); MCV 87 fL (80-95); MPV 10.2 fL (8.0-11.0); Neutrophils % 69.1; Platelet Count 302 10^3/uL (130-400); RBC 4.16 10^6/uL (3.93-5.22); RDW 14.7 % (11.7-14.6); RDW-SD 47.1 fL; WBC 7.88 10^3/uL (4.4-10.8)
[2023-06-25 07:32] LABS: Anion Gap 10.3 mmol/L (3-11); BUN 13 mg/dL (7-18); C-Reactive Protein 5.13 mg/dL (0.0-0.3); CO2 22.7 mmol/L (21.0-32.0); CREATININE 0.8 mg/dL (0.55-1.02); Calcium 9.4 mg/dL (8.5-10.1); Chloride 103 mmol/L (98-107); Estimated GFR 88.05 (mL/min/1.73m2); Glucose 344 mg/dL (74-106); Magnesium 1.9 mg/dL (1.8-2.4); Potassium 4.7 mmol/L (3.5-5.1); Sodium 136 mmol/L (136-145)
[2023-06-25 07:34] VITALS: BP 120/75; PULSE 84; RESP 16; TEMP 36.3; O2SAT 93
[2023-06-25] MEDS: Polyethylene Glycol 3350 17 GM PACKET PO (07:40)
[2023-06-25] MEDS: Lisinopril 10 MG TAB PO (07:41)
[2023-06-25] MEDS: buPROPion-CR 150 MG TABCR PO (07:42)
[2023-06-25] MEDS: Insulin Aspart 300 UNITS/3 ML PEN SC ×5 (07:43→21:27)
[2023-06-25] MEDS: MORPHine 2 MG/ML SYR IVP (09:43)
--- NOTE | 2023-06-25 09:47 | PGE_ITS ---
Date of Service Date of service: 06/25/23 Time of Service: 09:47 Assessment and Plan Assessment and plan (1) MRSA (methicillin resistant staph aureus) culture positive: Status: Acute (2) Cellulitis and abscess of other specified site: Status: Acute Assessment and plan: -dressing change done by nursing today. will view wound tommorrow -labs reviewed d/w case w/ hospitalist team. Need to get blood sugars under control. treat for 10 days abx in total due to severity of infection BLood cultures: neg dressing changes: daily wet to dry. DVT: lovenox PICC for IV access GI: tolerating diet pulm toilet needs to get up and walk abx: Vanco (3) Cellulitis: Status: Acute (4) Diabetes mellitus, type II: (5) Hypertension: (6) Hypothyroidism (acquired): (7) Obstructive sleep apnea (adult) (pediatric): Objective Last Vital Signs Temp 36.3 C L 06/25/23 07:34 Pulse 84 06/25/23 07:34 Resp 16 06/25/23 07:34 BP 120/75 06/25/23 07:34 Pulse Ox 93 06/25/23 07:34 Laboratory Results - last 24 hr 06/24/23 06/25/23 06/25/23 13:20 06:18 06:18 WBC 7.88 RBC 4.16 Hgb 11.5 Hct 36.0 MCV 87 MCH 27.6 MCHC 31.9 L RDW 14.7 H Plt Count 302 MPV 10.2 Immature Gran % 2.5 Neutrophils % 69.1 Lymphocytes % 19.0 Monocytes % 7.0 Eosinophils % 1.6 Basophils % 0.8 Nucleated RBC % 0.0 Absolute Neutrophils 5.44 Absolute Lymphocytes 1.50 Absolute Monocytes 0.55 Absolute Eosinophils 0.13 Absolute Basophils 0.06 Sodium 136 Potassium 4.7 Chloride 103 Carbon Dioxide 22.7 Anion Gap 10.3 BUN 13 Creatinine 0.8 Est GFR (CKD-EPI 2020) 88.05 Glucose 344 H Calcium 9.4 Magnesium 1.9 C-Reactive Protein 5.13 H Vancomycin Trough 10.8 Time Spent with Patient Time Spent with Patient: <25 minutes Time was spent: preparing to see the patient(eg.review tests), ordering medications,tests, procedures, referring, communicating with other health home care coordinator and indepentently interpreting results
[2023-06-25 11:17] VITALS: BP 173/90; PULSE 101; RESP 20; TEMP 36.6; O2SAT 94
[2023-06-25] MEDS: Ketorolac 10 MG TAB PO ×2 (11:54→18:12)
[2023-06-25 14:59] VITALS: BP 133/84; PULSE 82; RESP 16; TEMP 36.1; O2SAT 95
--- NOTE | 2023-06-25 16:38 | PGE_ITS ---
Date of Service Date of service: 06/25/23 Time of Service: 16:38 Assessment and Plan Assessment and plan (1) Cellulitis and abscess of other specified site: Status: Acute Assessment and plan: Continue Zosyn and vancomycin Surgery tending to wound and dsg changes, erythema less than prior day BC pending - neg to date MRSA + by wound cx WBC down to 7.88 (2) Acidosis, lactic: Status: Resolved Assessment and plan: Lactate 1.0 (3) Diabetes mellitus, type II: Assessment and plan: A1C - 12.1 up from 8.7 on 07/2022 Sliding scale Glucose continues to be high - added basal insulin at and carb coverage; review and adjust daily (4) Hypomagnesemia: Start date: 06/21/23 Status: Resolved Assessment and plan: 1.9 Monitor (5) Hyponatremia: Start date: 06/21/23 Status: Resolved Assessment and plan: NA 137 monitor (6) Hypertension: Assessment and plan: Continue outpatient medical therapy adjusting as needed during the acute stay. (7) Hypothyroidism (acquired): Assessment and plan: TSH 14.11 FT4 1.22 (8) MRSA (methicillin resistant staph aureus) culture positive: Status: Acute Assessment and plan: MRSA precautions - BC pending - neg to date continue abx (9) DVT prophylaxis: Status: Acute Assessment and plan: Enoxaparin (10) Discharge planning issues: Status: Acute Assessment and plan: Home when stable and ok per surgery- BC pending regarding outpt abx - PICC line in place Discussed with Dr Brady Subjective Subjective Patient reports: no new complaints, pain is less, tolerating a regular diet, voiding w/o difficulty, bowel movement and afebrile; denies flatus, diarrhea, nausea, vomiting or shortness of breath Interval history since last seen: Reports feeling better and that it does not hurt as much, explained she will need a picc probably for continued abx outpt. if further treatment is warranted after discharge - she does have PICC line and is amenable should it be necessary Exam Const General: comfortable and not ill appearing Nutritional Appearance: obese Orientation: alert, awake and oriented x3 HENMT Head: normal to inspection, normocephalic and atraumatic Mouth: oral mucosae normal Chest Chest: normal inspection of the chest Resp Effort & Inspection: normal respiratory effort Cardio Rate: regular rate Rhythm: regular rhythm Skin General skin exam: erythema Lesions: lesion noted (wound care by surgery, area of erythema surrounding wound large but less,) Rashes: rashes noted Objective Last Vital Signs Temp 36.1 C L 06/25/23 14:59 Pulse 82 06/25/23 14:59 Resp 16 06/25/23 14:59 BP 133/84 06/25/23 14:59 Pulse Ox 95 06/25/23 14:59 Laboratory Results - last 24 hr 06/25/23 06/25/23 06:18 06:18 WBC 7.88 RBC 4.16 Hgb 11.5 Hct 36.0 MCV 87 MCH 27.6 MCHC 31.9 L RDW 14.7 H Plt Count 302 MPV 10.2 Immature Gran % 2.5 Neutrophils % 69.1 Lymphocytes % 19.0 Monocytes % 7.0 Eosinophils % 1.6 Basophils % 0.8 Nucleated RBC % 0.0 Absolute Neutrophils 5.44 Absolute Lymphocytes 1.50 Absolute Monocytes 0.55 Absolute Eosinophils 0.13 Absolute Basophils 0.06 Sodium 136 Potassium 4.7 Chloride 103 Carbon Dioxide 22.7 Anion Gap 10.3 BUN 13 Creatinine 0.8 Est GFR (CKD-EPI 2020) 88.05 Glucose 344 H Calcium 9.4 Magnesium 1.9 C-Reactive Protein 5.13 H Time Spent with Patient Time Spent with Patient: 35-49 minutes Time was spent: ordering medications,tests, procedures, referring, communicating with other health child daycare worker, indepentently interpreting results, counseling the patient and care coordination
[2023-06-25 20:21] VITALS: BP 135/88; PULSE 83; RESP 16; TEMP 36.1; O2SAT 94
[2023-06-25] MEDS: rOPINIRole 1 MG TAB 3 MG PO (21:07)
[2023-06-25] MEDS: Enoxaparin 40 MG/0.4 ML SYR SC (21:08)
[2023-06-25] MEDS: Simvastatin 10 MG TAB PO (21:08)
[2023-06-25] MEDS: Insulin Glargine 300 UNITS/3 ML PEN 16 UNITS SC (21:28)
[2023-06-25 23:17] VITALS: BP 127/89; PULSE 87; RESP 16; TEMP 36.4; O2SAT 97
[2023-06-26] MEDS: Acetaminophen 500 MG TAB 1000 MG PO ×2 (04:11→21:19)
[2023-06-26] MEDS: Methocarbamol 750 MG TAB PO (04:11)
[2023-06-26 04:19] VITALS: BP 147/92; PULSE 89; RESP 16; TEMP 35.8; O2SAT 96
[2023-06-26] MEDS: Ketorolac 10 MG TAB PO ×2 (06:38→18:22)
[2023-06-26] MEDS: VANCOMYCIN/WATER (PEG) 1 GM/200 ML BAG IVPB ×2 (06:38→19:51)
[2023-06-26] MEDS: Levothyroxine 100 MCG TAB 200 MCG PO (06:38)
[2023-06-26 06:53] LABS: Lactate 1.3 mmol/L (0.6-1.4)
[2023-06-26 07:02] LABS: Abs Immature Grans 0.22 10^3/uL (0.0-0.06); Absolute Basophil Count 0.05 10^3/uL (0.0-0.2); Absolute Eosinophil Count 0.21 10^3/uL (0.0-0.7); Absolute Lymphocyte Count 1.78 10^3/uL (1.2-3.4); Absolute Monocyte Count 0.57 10^3/uL (0.1-0.8); Absolute Neutrophil Count 6.07 10^3/uL (1.2-6.7); Basophils % 0.6; Eosinophils % 2.4; HCT 36.8 % (36.0-46.0); HGB 11.8 g/dL (11.2-15.7); Immature Grans % 2.5; MCH 27.5 pg (27.0-33.0); MCHC 32.1 % (32.0-36.0); MCV 86 fL (80-95); MPV 9.7 fL (8.0-11.0); Monocytes % 6.4; Neutrophils % 68.1; Nucleated RBC 0.2 % (0.0-0.3); Platelet Count 308 10^3/uL (130-400); RBC 4.29 10^6/uL (3.93-5.22); RDW 14.8 % (11.7-14.6); RDW-SD 45.9 fL
[2023-06-26 07:16] LABS: Anion Gap 7.5 mmol/L (3-11); BUN 11 mg/dL (7-18); C-Reactive Protein 3.31 mg/dL (0.0-0.3); CO2 26.5 mmol/L (21.0-32.0); CREATININE 0.7 mg/dL (0.55-1.02); Calcium 10.1 mg/dL (8.5-10.1); Chloride 103 mmol/L (98-107); Estimated GFR 103.35 (mL/min/1.73m2); Glucose 242 mg/dL (74-106); Magnesium 1.8 mg/dL (1.8-2.4); Potassium 4.7 mmol/L (3.5-5.1); Sodium 137 mmol/L (136-145)
[2023-06-26] MEDS: Insulin Aspart 300 UNITS/3 ML PEN SC ×4 (07:34→21:22)
[2023-06-26 09:30] VITALS: BP 139/87; PULSE 91; RESP 18; TEMP 36.3; O2SAT 96
[2023-06-26] MEDS: Lisinopril 10 MG TAB PO (09:49)
[2023-06-26] MEDS: buPROPion-CR 150 MG TABCR PO (11:51)
[2023-06-26 12:29] LABS: Vancomycin, Random 22.1 ug/mL
--- NOTE | 2023-06-26 13:53 | PGE_ITS ---
Date of Service Date of service: 06/26/23 Time of Service: 13:53 Assessment and Plan Assessment and plan (1) MRSA (methicillin resistant staph aureus) culture positive: Status: Acute (2) Cellulitis and abscess of other specified site: Status: Acute Assessment and plan: PLAN The wound is not sharply debrided.? It was debrided with gauze and saline Wound care regimen: Packed wet-to-dry -Continue vancomycin for 10 days -We will need home health care for daily dressing change for approximately 6 to 12 weeks -The wound is too complex and has too many tunnels for wound VAC. MRSA screen was negative Stop smoking Regular exercise Tight glucose control -Follow-up in surgery clinic in 1 weeks time DC per hospitalist - ???30?Number of minutes spent with the pt. (3) Diarrhea: Status: Acute (4) Hypertension: (5) Hypothyroidism (acquired): (6) Obstructive sleep apnea (adult) (pediatric): (7) Restless leg syndrome: (8) Smoker: Subjective Subjective Interval history since last seen: The pt.?has been having no nausea or vomiting; no chest pain, shortness of breath or productive cough. ? Patient has been urinating without any difficu lties and moving bowel w/ no straining or bleeding. No problems with diarrhea/probiotics..? No fever/chills/sweats.?? Patient has no calf pain swelling, tenderness, or redness.? Patient has been sleeping at night with no problems.? Patient has been ambulating without difficulty, in her room only due to the MRSA patient has been able to tolerate a regular diet.? Patient has had good relief with previously prescribed pain meds.? The pt motor/sensory/vascular status is intact without any signs of acute or chronic ischemia. Past Medical, social, family histories, medications, and allergies reviewed and updated ?ROS: 4 point ROS neg other than the symptoms noted above in the HPI. Exam Skin Other: Wound is in the right axilla. Tunnelin o'clock position 8 cm 1:00-10 cm 3:00-6 cm 5:00-8 cm 6:00-6 cm Undermining: Significant tunneling see above Wound Base: ?granular: 30% ? Slough: 10% Surrounding Tissue: Minimal erythema and edema Pain: Very high. Patient has low pain tolerance Signs of infection: Resolving Abx: MRSA positive Day #3 of Vanco Vascular status: Unknown Protein status: Albumin is 2.3 Pressure offloading: No Smoker: Yes Diabetes: A1c is approximately 12 White count is normal CRP is 3.3 Objective Last Vital Signs Temp 35.8 C L 06/26/23 04:19 Pulse 89 06/26/23 04:19 Resp 16 06/26/23 04:19 BP 147/92 H 06/26/23 04:19 Pulse Ox 96 06/26/23 04:19 Laboratory Results - last 24 hr 06/26/23 06/26/23 06/26/23 06:42 06:42 06:42 WBC 8.90 RBC 4.29 Hgb 11.8 Hct 36.8 MCV 86 MCH 27.5 MCHC 32.1 RDW 14.8 H Plt Count 308 MPV 9.7 Immature Gran % 2.5 Neutrophils % 68.1 Lymphocytes % 20.0 Monocytes % 6.4 Eosinophils % 2.4 Basophils % 0.6 Nucleated RBC % 0.2 Absolute Neutrophils 6.07 Absolute Lymphocytes 1.78 Absolute Monocytes 0.57 Absolute Eosinophils 0.21 Absolute Basophils 0.05 VBG Lactate 1.3 Sodium 137 Potassium 4.7 Chloride 103 Carbon Dioxide 26.5 Anion Gap 7.5 BUN 11 Creatinine 0.7 Est GFR (CKD-EPI 2020) 103.35 Glucose 242 H Calcium 10.1 Magnesium 1.8 C-Reactive Protein 3.31 H Random Vancomycin 06/26/23 12:02 WBC RBC Hgb Hct MCV MCH MCHC RDW Plt Count MPV Immature Gran % Neutrophils % Lymphocytes % Monocytes % Eosinophils % Basophils % Nucleated RBC % Absolute Neutrophils Absolute Lymphocytes Absolute Monocytes Absolute Eosinophils Absolute Basophils VBG Lactate Sodium Potassium Chloride Carbon Dioxide Anion Gap BUN Creatinine Est GFR (CKD-EPI 2020) Glucose Calcium Magnesium C-Reactive Protein Random Vancomycin 22.1 Time Spent with Patient Time Spent with Patient: 35-49 minutes Time was spent: preparing to see the patient(eg.review tests), obtaining and/or reviewing separately otained hiistory, ordering medications,tests, procedures, referring, communicating with other health animal care service worker, indepentently interpreting results, counseling the patient and care coordination
[2023-06-26 14:00] VITALS: BP 139/85; PULSE 90; RESP 18; TEMP 36.4; O2SAT 96
[2023-06-26] MEDS: LORazepam 2 MG/ML VIAL 1 MG IVP (14:16)
[2023-06-26] MEDS: HYDROmorphone 2 MG/ML SYR 1 MG IVP (14:19)
[2023-06-26 15:40] VITALS: BP 119/77; PULSE 91; RESP 20; TEMP 36.3; O2SAT 93
[2023-06-26 19:03] VITALS: BP 137/93; PULSE 101; RESP 20; TEMP 36.5; O2SAT 94
--- NOTE | 2023-06-26 19:05 | W.PM.PROGNOT ---
Date of Service Date of service: 06/26/23 Time of Service: 11:00 Assessment and Plan Assessment and plan (1) Cellulitis and abscess of other specified site: Status: Acute Assessment and plan: Continue Zosyn and vancomycin Surgery tending to wound and dsg changes, erythema less than prior day BC pending - neg to date MRSA + by wondcx WBC down to (2) Acidosis, lactic: Status: Resolved Assessment and plan: Lactate 1.0 (3) Diabetes mellitus, type II: Assessment and plan: A1C - 12.1 up from 8.7 on 07/2022 Glucose continues to be high - 300s - increased basal insulin at HS to 25 units Lantus and carb coverage 1:10; sliding scale resistant, review and adjust daily (4) Hypomagnesemia: Start date: 06/21/23 Status: Resolved Assessment and plan: 1.8 Monitor (5) Hyponatremia: Start date: 06/21/23 Status: Resolved Assessment and plan: NA 137 monitor (6) Hypertension: Assessment and plan: Continue outpatient medical therapy adjusting as needed during the acute stay. (7) Hypothyroidism (acquired): Assessment and plan: TSH 14.11 FT4 1.22 (8) MRSA (methicillin resistant staph aureus) culture positive: Status: Acute Assessment and plan: MRSA precautions - BC pending - neg to date continue abx (9) DVT prophylaxis: Status: Acute Assessment and plan: Enoxaparin (10) Discharge planning issues: Status: Acute Assessment and plan: Home when stable and ok per surgery- BC pending regarding outpt abx - PICC line in place Vancomycin for 10 days Wet to dry dsg Home health v swing v snf Wound vac NOT recommended due to multiple tunnels FU w surgery in [address] Pennington Subjective Subjective Patient reports: no new complaints, pain is less, tolerating a regular diet, voiding w/o difficulty, bowel movement, vomiting and afebrile; denies diarrhea, nausea or shortness of breath Interval history since last seen: Awake alert semifowlers in bed. Discussed discharge plan. She states she can not go home as she has multiple dogs and cats and the enviorment is not positive for wound healing. Will discuss w care mgrs options for her HH v swing v snf - length of time for abx will help clear that up. Exam Const General: comfortable and not ill appearing Nutritional Appearance: obese Orientation: alert, awake and oriented x3 HENMT Head: normal to inspection, normocephalic and atraumatic Mouth: oral mucosae normal Chest Chest: normal inspection of the chest Resp Effort & Inspection: normal respiratory effort Cardio Rate: regular rate Rhythm: regular rhythm Skin General skin exam: erythema Lesions: lesion noted (wound care by surgery, area of erythema surrounding wound large but less,) Rashes: rashes noted Other: Wound covered with clean dry dsg ; followed by surgery Objective Last Vital Signs Temp 36.5 C 06/26/23 19:03 Pulse 101 H 06/26/23 19:03 Resp 20 06/26/23 19:03 BP 137/93 H 06/26/23 19:03 Pulse Ox 94 06/26/23 19:03 Laboratory Results - last 24 hr 06/26/23 06/26/23 06/26/23 06:42 06:42 06:42 WBC 8.90 RBC 4.29 Hgb 11.8 Hct 36.8 MCV 86 MCH 27.5 MCHC 32.1 RDW 14.8 H Plt Count 308 MPV 9.7 Immature Gran % 2.5 Neutrophils % 68.1 Lymphocytes % 20.0 Monocytes % 6.4 Eosinophils % 2.4 Basophils % 0.6 Nucleated RBC % 0.2 Absolute Neutrophils 6.07 Absolute Lymphocytes 1.78 Absolute Monocytes 0.57 Absolute Eosinophils 0.21 Absolute Basophils 0.05 VBG Lactate 1.3 Sodium 137 Potassium 4.7 Chloride 103 Carbon Dioxide 26.5 Anion Gap 7.5 BUN 11 Creatinine 0.7 Est GFR (CKD-EPI 2020) 103.35 Glucose 242 H Calcium 10.1 Magnesium 1.8 C-Reactive Protein 3.31 H Random Vancomycin 06/26/23 12:02 WBC RBC Hgb Hct MCV MCH MCHC RDW Plt Count MPV Immature Gran % Neutrophils % Lymphocytes % Monocytes % Eosinophils % Basophils % Nucleated RBC % Absolute Neutrophils Absolute Lymphocytes Absolute Monocytes Absolute Eosinophils Absolute Basophils VBG Lactate Sodium Potassium Chloride Carbon Dioxide Anion Gap BUN Creatinine Est GFR (CKD-EPI 2020) Glucose Calcium Magnesium C-Reactive Protein Random Vancomycin 22.1 Time Spent with Patient Time Spent with Patient: 35-49 minutes Time was spent: preparing to see the patient(eg.review tests), ordering medications,tests, procedures, referring, communicating with other health client care consultant, indepentently interpreting results, counseling the patient and care coordination
[2023-06-26] MEDS: Normal Saline Flush 10 ML SYR IVP (19:52)
[2023-06-26] MEDS: Enoxaparin 40 MG/0.4 ML SYR SC (21:19)
[2023-06-26] MEDS: Simvastatin 10 MG TAB PO (21:19)
[2023-06-26] MEDS: rOPINIRole 1 MG TAB 3 MG PO (21:19)
[2023-06-26] MEDS: Insulin Glargine 300 UNITS/3 ML PEN 25 UNITS SC (21:20)
[2023-06-27] VITALS (7 sets, daily range): BP systolic 120–147; BP diastolic 80–88; PULSE 81–98; RESP 16–20; TEMP 36.3–36.8; O2SAT 94–97
[2023-06-27] MEDS: Ketorolac 10 MG TAB PO ×4 (00:02→17:51)
[2023-06-27] MEDS: VANCOMYCIN/WATER (PEG) 1 GM/200 ML BAG IVPB ×3 (04:03→21:13)
[2023-06-27] MEDS: Levothyroxine 100 MCG TAB 200 MCG PO (06:09)
[2023-06-27] MEDS: Acetaminophen 500 MG TAB 1000 MG PO ×3 (06:09→21:13)
[2023-06-27 06:49] LABS: Abs Immature Grans 0.19 10^3/uL (0.0-0.06); Absolute Basophil Count 0.05 10^3/uL (0.0-0.2); Absolute Eosinophil Count 0.18 10^3/uL (0.0-0.7); Absolute Monocyte Count 0.72 10^3/uL (0.1-0.8); Absolute Neutrophil Count 7.07 10^3/uL (1.2-6.7); Basophils % 0.5; Eosinophils % 1.8; HCT 37.1 % (36.0-46.0); HGB 11.8 g/dL (11.2-15.7); Immature Grans % 1.9; Lymphocytes % 19.6; MCH 27.3 pg (27.0-33.0); MCHC 31.8 % (32.0-36.0); MCV 86 fL (80-95); MPV 9.7 fL (8.0-11.0); Monocytes % 7.1; Neutrophils % 69.1; Nucleated RBC 0.2 % (0.0-0.3); Platelet Count 332 10^3/uL (130-400); RBC 4.33 10^6/uL (3.93-5.22); RDW 14.6 % (11.7-14.6); WBC 10.21 10^3/uL (4.4-10.8)
[2023-06-27 07:10] LABS: Anion Gap 8.1 mmol/L (3-11); BUN 21 mg/dL (7-18); CO2 25.9 mmol/L (21.0-32.0); CREATININE 0.8 mg/dL (0.55-1.02); Calcium 9.9 mg/dL (8.5-10.1); Chloride 100 mmol/L (98-107); Estimated GFR 88.05 (mL/min/1.73m2); Glucose 260 mg/dL (74-106); Magnesium 1.8 mg/dL (1.8-2.4); Potassium 4.3 mmol/L (3.5-5.1); Sodium 134 mmol/L (136-145)
[2023-06-27] MEDS: Insulin Aspart 300 UNITS/3 ML PEN SC ×7 (08:07→21:14)
[2023-06-27] MEDS: Lisinopril 10 MG TAB PO (08:14)
[2023-06-27] MEDS: buPROPion-CR 150 MG TABCR PO (08:14)
--- NOTE | 2023-06-27 10:22 | CMPROGNOTE_ITS ---
Date of service: 06/27/23 Time of Service: 10:22 Care Management Progress Note Progress Note Text Progress Note Text: S/O: Tabatha was sitting up in bed eating lunch when CM met with her. She stated that she is feeling much better today, with less pain. Per report, she will have IV abx for ten days; she is on day six currently. CM discussed options for discharge including home with HH, SWB, or SNF. She would prefer to return home if possible, with home health services. CM will continue to follow. A: Tabatha is a 52 year old female admitted to [facility] on 06/21/23 for cellulitis with abscess. P: Anticipate Tabatha will return home when medically cleared. She may benefit from HH RN for wound care, as well as possible fdc IV abx. She will be driven home via private vehicle by family. She will follow up with her PCP and discharge plan of care. CM will continue to follow.
[2023-06-27] MEDS: Normal Saline Flush 10 ML SYR IVP (11:25)
[2023-06-27] MEDS: oxyCODONE 5 MG TAB PO (16:37)
[2023-06-27] MEDS: MORPHine 2 MG/ML SYR IVP (16:37)
--- NOTE | 2023-06-27 17:48 | W.PM.PROGNOT ---
Date of Service Date of service: 06/27/23 Time of Service: 17:48 Assessment and Plan Assessment and plan (1) Cellulitis and abscess of other specified site: Status: Acute Assessment and plan: Continue Zosyn and vancomycin Surgery tending to wound and dsg changes, erythema less than prior day BC pending - neg to date MRSA + by wound cx WBC down to (2) Acidosis, lactic: Status: Resolved Assessment and plan: Lactate 1.0 (3) Diabetes mellitus, type II: Assessment and plan: A1C - 12.1 up from 8.7 on 07/2022 Glucose continues to be high - 300s - increased basal insulin at HS to 30 units Lantus and carb coverage 1:10; sliding scale resistant, review and adjust daily (4) Hypomagnesemia: Start date: 06/21/23 Status: Resolved Assessment and plan: 1.8 Monitor (5) Hyponatremia: Start date: 06/21/23 Status: Resolved Assessment and plan: NA 134 monitor (6) Hypertension: Assessment and plan: Continue outpatient medical therapy adjusting as needed during the acute stay. (7) Hypothyroidism (acquired): Assessment and plan: TSH 14.11 FT4 1.22 (8) MRSA (methicillin resistant staph aureus) culture positive: Status: Acute Assessment and plan: MRSA precautions - BC pending - neg to date continue abx (9) DVT prophylaxis: Status: Resolved Assessment and plan: Enoxaparin (10) Discharge planning issues: Status: Resolved Assessment and plan: Home when stable and ok per surgery- BC pending regarding outpt abx - PICC line in place Bactrim for 10 days Wet to dry dsg Home health v swing v snf Wound vac NOT recommended due to multiple tunnels FU w surgery in [address] Pennington Subjective Subjective Patient reports: no new complaints, pain is less, tolerating a regular diet, bowel movement and afebrile; denies nausea Interval history since last seen: Discussed going home. She has had someone clean her house and has negative BC - will work on discharge for tomorrow. VSS Exam Const General: comfortable and not ill appearing Nutritional Appearance: obese Orientation: alert, awake and oriented x3 HENMT Head: normal to inspection, normocephalic and atraumatic Mouth: oral mucosae normal Chest Chest: normal inspection of the chest Resp Effort & Inspection: normal respiratory effort Cardio Rate: regular rate Rhythm: regular rhythm Skin General skin exam: erythema Lesions: lesion noted (Surgical lesion packed with gauze markedly improved erythema surrounding) Rashes: rashes noted Psych Mental Status: mental status grossly normal Speech and Movement: speech and movement normal Mood: congruent mood Affect: normal affect Objective Last Vital Signs Temp 36.8 C 06/27/23 15:50 Pulse 94 H 06/27/23 15:50 Resp 20 06/27/23 15:50 BP 144/80 H 06/27/23 15:50 Pulse Ox 94 06/27/23 15:50 Laboratory Results - last 24 hr 06/27/23 06/27/23 06:05 06:05 WBC 10.21 RBC 4.33 Hgb 11.8 Hct 37.1 MCV 86 MCH 27.3 MCHC 31.8 L RDW 14.6 Plt Count 332 MPV 9.7 Immature Gran % 1.9 Neutrophils % 69.1 Lymphocytes % 19.6 Monocytes % 7.1 Eosinophils % 1.8 Basophils % 0.5 Nucleated RBC % 0.2 Absolute Neutrophils 7.07 H Absolute Lymphocytes 2.00 Absolute Monocytes 0.72 Absolute Eosinophils 0.18 Absolute Basophils 0.05 Sodium 134 L Potassium 4.3 Chloride 100 Carbon Dioxide 25.9 Anion Gap 8.1 BUN 21 H Creatinine 0.8 Est GFR (CKD-EPI 2020) 88.05 Glucose 260 H Calcium 9.9 Magnesium 1.8 C-Reactive Protein 3.00 H Time Spent with Patient Time Spent with Patient: 25-34 minutes Time was spent: preparing to see the patient(eg.review tests), ordering medications,tests, procedures, referring, communicating with other health floor care specialist, indepentently interpreting results, counseling the patient and care coordination
[2023-06-27] MEDS: rOPINIRole 1 MG TAB 3 MG PO (21:13)
[2023-06-27] MEDS: Insulin Glargine 300 UNITS/3 ML PEN 25 UNITS SC (21:13)
[2023-06-27] MEDS: Simvastatin 10 MG TAB PO (21:13)
[2023-06-27] MEDS: Enoxaparin 40 MG/0.4 ML SYR SC (21:13)
[2023-06-28] MEDS: VANCOMYCIN/WATER (PEG) 1 GM/200 ML BAG IVPB ×2 (03:43→12:05)
[2023-06-28 03:47] VITALS: BP 126/84; PULSE 92; RESP 18; TEMP 36.7; O2SAT 96
[2023-06-28] MEDS: Levothyroxine 100 MCG TAB 200 MCG PO (06:06)
[2023-06-28] MEDS: Acetaminophen 500 MG TAB 1000 MG PO ×2 (06:06→20:26)
[2023-06-28] MEDS: Ketorolac 10 MG TAB PO ×2 (06:06→12:06)
[2023-06-28 07:12] LABS: Abs Immature Grans 0.16 10^3/uL (0.0-0.06); Absolute Basophil Count 0.06 10^3/uL (0.0-0.2); Absolute Eosinophil Count 0.19 10^3/uL (0.0-0.7); Absolute Lymphocyte Count 1.88 10^3/uL (1.2-3.4); Absolute Monocyte Count 0.73 10^3/uL (0.1-0.8); Absolute Neutrophil Count 7.61 10^3/uL (1.2-6.7); Basophils % 0.6; Eosinophils % 1.8; HCT 36.8 % (36.0-46.0); HGB 11.6 g/dL (11.2-15.7); Immature Grans % 1.5; Lymphocytes % 17.7; MCH 27.3 pg (27.0-33.0); MCHC 31.5 % (32.0-36.0); MCV 87 fL (80-95); MPV 10.3 fL (8.0-11.0); Monocytes % 6.9; Neutrophils % 71.5; Platelet Count 299 10^3/uL (130-400); RBC 4.25 10^6/uL (3.93-5.22); WBC 10.63 10^3/uL (4.4-10.8)
[2023-06-28 07:41] LABS: Anion Gap 9.5 mmol/L (3-11); BUN 19 mg/dL (7-18); CO2 23.5 mmol/L (21.0-32.0); CREATININE 0.7 mg/dL (0.55-1.02); Calcium 9.6 mg/dL (8.5-10.1); Chloride 101 mmol/L (98-107); Estimated GFR 103.35 (mL/min/1.73m2); Glucose 234 mg/dL (74-106); Magnesium 1.8 mg/dL (1.8-2.4); Potassium 4.2 mmol/L (3.5-5.1); Sodium 134 mmol/L (136-145)
[2023-06-28 07:46] VITALS: BP 144/81; PULSE 88; RESP 18; TEMP 36.5; O2SAT 97
[2023-06-28] MEDS: Lisinopril 10 MG TAB PO (08:08)
[2023-06-28] MEDS: buPROPion-CR 150 MG TABCR PO (08:08)
[2023-06-28] MEDS: Insulin Aspart 300 UNITS/3 ML PEN SC ×6 (08:09→20:25)
--- NOTE | 2023-06-28 11:14 | W.INDIABCONS ---
Date of service: 06/28/23 Time of Service: 11:14 Diabetes Inpatient Consult Reason for Visit: Diabetes management. Nutrition for wound healing. DESCRIPTION/ASSESSMENT: Ms. Becker is here related to her wounds. Her blood sugars have not been at target which of course will have a negative impact on her healing. A1C is 12.1 which is up significantly from a year ago. Her BMI is 53.6 c/w class 3 obesity. Adjusted ideal body weight is 76 kg. Fasting blood sugars are still above 200 with a target of 180. She is on 25 units of lantus, mealtime aspart correction as well as an aspart coverage of 1 unit :10g CHO Estimated energy needs are 2000 kcal/day (REE x 1.2). Weight maintenance needs are recommended while she is acute. senior living caloric needs are 1200 to 1500 kcal/day for weight reduction. Estimated protein needs are 91g to 114 g/day (1.2-1.5 g/kg of adjusted ideal body weight) Estimated fluid needs are 2000 ml/day (1 ml/kcal provided) INTERVENTION: Providing Glucerna and/or other high protein nutritional supplements with her meals due to her high protein needs. Would consider adding 1oz liquid protein twice per day to the MAR for her. Also recommended increasing Lantus conservatively to 30 units. PLAN: 1. Will watch blood sugars closely and continue to make recommendations accordingly. 2. Will continue to encourage nutrient dense high protein nutrition. 3. Will be available for discharge planning blood sugar management as well as encourage outpatient diabetes and weight management nutritional counseling. Time Spent in Nutritional Counseling and Treatment: 15 minutes
[2023-06-28 11:32] VITALS: BP 137/90; PULSE 88; RESP 17; TEMP 36.1; O2SAT 97
--- NOTE | 2023-06-28 12:19 | CMPROGNOTE_ITS ---
Date of service: 06/28/23 Time of Service: 12:19 Care Management Progress Note Progress Note Text Progress Note Text: S/O: Tabatha was sitting up in her chair when CM met with her. She stated that she is feeling better and is hopeful to return home soon. Per report, she continues to require IV antibiotics and daily wound care dressing changes (wet to dry). She is agreeable to home health services, but is not agreeable to SNF. She reported that her brother is helping to clean up her house in preparation of her return. CM called HH to inform them of her plan to have HH services; it may require a PA, due to commercial insurance; HH will return the call. CM brought the FMLA and STD paperwork to the surgical office to have MD sign. CM will continue to follow. A: Tabatha is a 52 year old female admitted to [facility] on 06/21/23 for cellulitis with abscess. P: Anticipate Tabatha will return home when medically cleared. She may benefit from HH RN for wound care, as well as possible continuous churn buttermaker IV abx. She will be driven home via private vehicle by family. She will follow up with her PCP and discharge plan of care. CM will continue to follow.
[2023-06-28 15:38] VITALS: BP 166/88; PULSE 85; RESP 22; TEMP 36.8; O2SAT 96
[2023-06-28] MEDS: MORPHine 2 MG/ML SYR IVP (16:05)
--- NOTE | 2023-06-28 16:47 | W.PM.PROGNOT ---
Date of Service Date of service: 06/28/23 Time of Service: 16:47 Assessment and Plan Assessment and plan (1) MRSA (methicillin resistant staph aureus) culture positive: Status: Acute (2) Cellulitis and abscess of other specified site: Status: Acute Assessment and plan: PLAN Wound re-packed with moist kerlix Wound care regimen: Packed wet-to-dry -Continue vancomycin for 10 days -We will need home health care for daily dressing change for approximately 6 to 12 weeks -The wound is too complex and has too many tunnels for wound VAC. MRSA screen was negative Stop smoking Regular exercise Tight glucose control -Follow-up in surgery clinic in 1 weeks time DC per hospitalist - ???30?Number of minutes spent with the pt. (3) Diarrhea: Status: Acute (4) Hypertension: (5) Hypothyroidism (acquired): (6) Obstructive sleep apnea (adult) (pediatric): (7) Restless leg syndrome: (8) Smoker: Subjective Subjective Interval history since last seen: Veda is doing well. She has had no fevers or chills. Her dressing has not been changed today so I will do that. Her blood cultures have been negative for MRSA. Exam Chest Other: Dressing removed. Packing was moistened and then removed without much trouble. The wound was irrigated with normal saline. No purulent fluid was noted. A new packing was placed that was moist. An ABD was applied over that and secured with mesh tube dressing. Objective Last Vital Signs Temp 98.2 F 06/28/23 15:38 Pulse 85 06/28/23 15:38 Resp 22 06/28/23 15:38 BP 166/88 H 06/28/23 15:38 Pulse Ox 96 06/28/23 15:38 Laboratory Results - last 24 hr 06/28/23 06/28/23 05:48 05:48 WBC 10.63 RBC 4.25 Hgb 11.6 Hct 36.8 MCV 87 MCH 27.3 MCHC 31.5 L RDW 15.0 H Plt Count 299 MPV 10.3 Immature Gran % 1.5 Neutrophils % 71.5 Lymphocytes % 17.7 Monocytes % 6.9 Eosinophils % 1.8 Basophils % 0.6 Nucleated RBC % 0.0 Absolute Neutrophils 7.61 H Absolute Lymphocytes 1.88 Absolute Monocytes 0.73 Absolute Eosinophils 0.19 Absolute Basophils 0.06 Sodium 134 L Potassium 4.2 Chloride 101 Carbon Dioxide 23.5 Anion Gap 9.5 BUN 19 H Creatinine 0.7 Est GFR (CKD-EPI 2020) 103.35 Glucose 234 H Calcium 9.6 Magnesium 1.8 Time Spent with Patient Time Spent with Patient: 25-34 minutes Time was spent: preparing to see the patient(eg.review tests), ordering medications,tests, procedures, indepentently interpreting results and counseling the patient
[2023-06-28 17:08] LABS: Vancomycin, Trough 26.5 ug/mL (10.0-20.0)
[2023-06-28 20:18] VITALS: BP 159/90; PULSE 108; RESP 18; TEMP 37.1; O2SAT 96
[2023-06-28] MEDS: Insulin Glargine 300 UNITS/3 ML PEN 30 UNITS SC (20:25)
[2023-06-28] MEDS: Simvastatin 10 MG TAB PO (20:26)
[2023-06-28] MEDS: Sulfameth/Trimeth DS TAB 1 TAB PO (20:26)
[2023-06-28] MEDS: oxyCODONE 5 MG TAB PO (20:26)
[2023-06-28] MEDS: rOPINIRole 1 MG TAB 3 MG PO (20:27)
[2023-06-28] MEDS: Normal Saline Flush 10 ML SYR IVP (20:27)
[2023-06-28 23:38] VITALS: BP 114/76; PULSE 96; RESP 18; TEMP 36.2; O2SAT 93
[2023-06-29 03:30] VITALS: BP 140/88; PULSE 92; RESP 17; TEMP 36.3; O2SAT 97
[2023-06-29] MEDS: Levothyroxine 100 MCG TAB 200 MCG PO (05:18)
[2023-06-29] MEDS: Acetaminophen 500 MG TAB 1000 MG PO (05:18)
[2023-06-29 06:41] LABS: Abs Immature Grans 0.13 10^3/uL (0.0-0.06); Absolute Basophil Count 0.05 10^3/uL (0.0-0.2); Absolute Eosinophil Count 0.18 10^3/uL (0.0-0.7); Absolute Lymphocyte Count 1.88 10^3/uL (1.2-3.4); Absolute Monocyte Count 0.75 10^3/uL (0.1-0.8); Absolute Neutrophil Count 6.65 10^3/uL (1.2-6.7); Basophils % 0.5; Eosinophils % 1.9; HCT 34.9 % (36.0-46.0); HGB 11.1 g/dL (11.2-15.7); Immature Grans % 1.3; Lymphocytes % 19.5; MCH 27.3 pg (27.0-33.0); MCHC 31.8 % (32.0-36.0); MCV 86 fL (80-95); MPV 9.5 fL (8.0-11.0); Monocytes % 7.8; Platelet Count 345 10^3/uL (130-400); RBC 4.06 10^6/uL (3.93-5.22); RDW 14.9 % (11.7-14.6); RDW-SD 46.2 fL; WBC 9.64 10^3/uL (4.4-10.8)
[2023-06-29 06:54] LABS: Anion Gap 9.3 mmol/L (3-11); BUN 20 mg/dL (7-18); C-Reactive Protein 2.19 mg/dL (0.0-0.3); CO2 24.7 mmol/L (21.0-32.0); CREATININE 0.9 mg/dL (0.55-1.02); Calcium 9.7 mg/dL (8.5-10.1); Chloride 100 mmol/L (98-107); Estimated GFR 76.44 (mL/min/1.73m2); Glucose 293 mg/dL (74-106); Magnesium 1.8 mg/dL (1.8-2.4); Potassium 4.5 mmol/L (3.5-5.1); Sodium 134 mmol/L (136-145)
[2023-06-29 08:18] VITALS: BP 156/100; PULSE 91; RESP 18; TEMP 36.4; O2SAT 95
[2023-06-29] MEDS: Insulin Aspart 300 UNITS/3 ML PEN SC ×4 (08:29→11:55)
[2023-06-29] MEDS: Sulfameth/Trimeth DS TAB 1 TAB PO (08:29)
[2023-06-29] MEDS: buPROPion-CR 150 MG TABCR PO (08:29)
[2023-06-29] MEDS: Lisinopril 10 MG TAB PO (08:29)
[2023-06-29 11:22] VITALS: BP 124/73; PULSE 94; RESP 18; TEMP 36.6; O2SAT 95
--- NOTE | 2023-06-29 11:37 | W.PM.DS.N ---
Date of service: 06/29/23 Time of Service: 11:37 DS: Diagnosis Discharge Diagnosis (1) MRSA (methicillin resistant staph aureus) culture positive: Status: Acute (2) Cellulitis and abscess of other specified site: Status: Acute (3) Diarrhea: Status: Acute (4) Hypertension: (5) Hypothyroidism (acquired): (6) Obstructive sleep apnea (adult) (pediatric): (7) Restless leg syndrome: (8) Smoker: Discharge Plan Disposition Patient Disposition: Home W/Home Health Services Condition: Improving Discharge Details Reason For Visit: Cellulitis with Abscess; NIDDM with Hyperglycemia Admit Date/Time: 06/21/23 21:54 Admit Provider: Lopez Enriquez Attending Provider: Lopez Enriquez Primary Care Provider: Caryl Galeas Hospital Course Hospital Course: This is a 52-year-old patient with a history of diabetes mellitus type 2 who presented to the emergency department after failing outpatient treatment for cellulitis with abscess over right chest wall status post insect bite.? She was admitted to the medical surgical unit for IV antibiotic therapy (Zosyn and vancomycin) and surgical consult for I&D.? Her wound cultures grew MRSA, blood cultures remained negative and she responded to the treatment. She was down stepped back to Bactrim. She continued to receive wet-to-dry dressings daily. She is stable and ready for discharge to home with home health services for dressing changes and wound care. She will continue to be followed outpatient by general surgery Discharge discussed with Dr. Pennington Home Meds and New Rx's Prescriptions: New sulfamethoxazole-trimethoprim 800-160 mg Tablet 1 tab PO BID Qty: 14 0RF ketorolac 10 mg Tablet 10 mg PO Q6H Qty: 30 0RF Continued bupropion HCl [Wellbutrin SR] 150 MG tablet extended release 12 hr 150 mg PO DAILY (DME) FreeStyle Lite Strips 1 EACH strip 1 ea Miscellaneous BID citalopram [Celexa] 20 MG tablet 20 mg PO DAILY levothyroxine 175 MCG tablet 200 mcg PO DAILY ropinirole [Requip] 3 MG tablet 1 tab PO HS simvastatin 10 MG tablet 10 mg PO HS ibuprofen 800 MG tablet 800 mg PO PRN lisinopril 10 MG tablet 10 mg PO QAM epinephrine [EpiPen 2-Kalyan] 0.3 MG/0.3 ML auto-injector 0.3 mg IM DIRECTED Januvia 50 mg Tablet 50 mg PO DAILY Discharge Instructions Instructions: Abscess Incision and Drainage (DC) Additional Instructions: wet to dry dressing changes daily w/ Yung Stand Alone Forms: Nursing Discharge Form Referrals: Caryl Galeas [Primary Care Provider] - 07/04/23 9:10 am (1-2 weeks Diabetes A1C >12 - started on insulin ) Juanita Hinds MD [ [facility] STAFF PHYSICIAN] - 07/08/23 9:30 am (1 week - Wound assessment) Activity:: Activity as Tolerated Equipment/Supplies:: Blood Glucose Monitor Diet:: Carb Counting Discharge Orders Discharge Orders: Discharge Order (Routine); Ordered 06/29/23 Ordered By: Afsaneh Fay Discharge Data Discharge Date/Time-TO BE ENTERED AT DEPARTURE: 06/29/23 15:30 DS: Summary Time Spent with Patient providing and/or coordinating discharge services: Greater than 30 minutes Status at Discharge Functional status at discharge: independent ambulation Overall status at discharge: patient is progressing back to baseline Mental Status: mental status grossly normal Speech and Movement: speech and movement normal Mood: congruent mood Affect: normal affect Exam Const General: comfortable and not ill appearing Nutritional Appearance: obese Orientation: alert, awake and oriented x3 HENMT Head: normal to inspection, normocephalic and atraumatic Mouth: oral mucosae normal Chest Chest: normal inspection of the chest Resp Effort & Inspection: normal respiratory effort Cardio Rate: regular rate Rhythm: regular rhythm Skin General skin exam: erythema Lesions: lesion noted (Surgical lesion packed with gauze markedly improved erythema surrounding) Rashes: rashes noted Psych Mental Status: mental status grossly normal Speech and Movement: speech and movement normal Mood: congruent mood Affect: normal affect DS: Data Vitals/I&O Vitals and I&O: Vital Signs Temperature 36.6 C 06/29/23 11:22 Temperature Source Tympanic 06/29/23 11:22 Pulse 94 H 06/29/23 11:22 Pulse Rhythm Regular 06/29/23 08:36 Respiratory Rate 18 06/29/23 11:22 Respiratory Effort Normal, Non-Labored 06/29/23 08:36 Respiratory Depth Normal 06/29/23 08:36 Respiratory Pattern Normal 06/29/23 08:36 Blood Pressure 124/73 06/29/23 11:22 Blood Pressure Mean 94 06/21/23 17:46 Blood Pressure Position Sitting 06/21/23 15:47 Pulse Oximetry 95 06/29/23 11:22 Respiratory End-tidal CO2 36 06/23/23 16:19 Oxygen Delivery Method Room Air 06/29/23 11:22 Oxygen Flow Rate 0 06/29/23 11:22 Pain Level 0 06/29/23 11:22 Comment p.t walking around room prior to v\s 06/28/23 20:18 Intake & Output 06/28/23 06/28/23 06/29/23 11:59 23:59 11:59 Intake Total 200 / 200 Output Total 150 / 150 Balance 200 / 50 -150 / 50 Weight 116.4 kg 116.2 kg Intake: IV 200 / 200 Output: Urine 150 / 150 Other: Urine Color Yellow Urine Appearance Clear Stool Size Moderate Stool Characteristics Formed Voiding Methods Toilet Toilet Toilet Data Completed and Pending Labs on day of discharge: Labs from last 24 hours 06/29/23 06/29/23 06/28/23 05:45 05:45 16:35 WBC 9.64 RBC 4.06 Hgb 11.1 L Hct 34.9 L MCV 86 MCH 27.3 MCHC 31.8 L RDW 14.9 H Plt Count 345 MPV 9.5 Immature Gran % 1.3 Neutrophils % 69.0 Lymphocytes % 19.5 Monocytes % 7.8 Eosinophils % 1.9 Basophils % 0.5 Nucleated RBC % 0.0 Absolute Neutrophils 6.65 Absolute Lymphocytes 1.88 Absolute Monocytes 0.75 Absolute Eosinophils 0.18 Absolute Basophils 0.05 Sodium 134 L Potassium 4.5 Chloride 100 Carbon Dioxide 24.7 Anion Gap 9.3 BUN 20 H Creatinine 0.9 Est GFR (CKD-EPI 2020) 76.44 Glucose 293 H Calcium 9.7 Magnesium 1.8 C-Reactive Protein 2.19 H Vancomycin Trough 26.5 H* PFSH All Active Problems (Updated 06/30/23 @ 00:06 by SportyBird) MRSA (methicillin resistant staph aureus) culture positive (Acute) Cellulitis and abscess of other specified site (Acute) Diarrhea (Acute) Cellulitis (Acute) Acute hyperglycemia (Acute) Medical History (Updated 06/30/23 @ 00:06 by SportyBird) Bone spur Diabetes mellitus, type II Dyspnea on exertion Female stress incontinence Hypertension Hypothyroidism (acquired) Irregular heart rate Obesity Obstructive sleep apnea (adult) (pediatric) Restless leg syndrome Sinusitis, chronic Smoker Surgical History (Updated 06/23/23 @ 08:01 by Paige Chavez) History of section S/P hernia repair Status post incision and drainage (~06/2023) Social History Smoking/Tobacco Use Status: Current every day Tobacco Type: e-cigarettes Smoking risk assessment performed?: Yes Alcohol Intake: current Alcohol Intake frequency: a few times a month Drug use: Occasionally Substance use type: marijuana Housing: house Do you feel safe at home: Yes Do you feel safe in your relationship?: Yes Time Spent with Patient Time Spent with Patient: 45-69 minutes Time was spent: preparing to see the patient(eg.review tests), ordering medications,tests, procedures, referring, communicating with other health client care consultant, counseling the patient and care coordination
[2023-06-29] MEDS: MORPHine 2 MG/ML SYR IVP (12:38)
--- NOTE | 2023-06-29 16:08 | CMDISCH_ITS ---
Date of service: 06/29/23 Time of Service: 16:08 LACE Index Scoring Tool Questions: Length of Stay (in days): 7 - 13 Was the patient admitted via the E.D.?: Yes E.D. Visits: 1 Answers: Total Score: 9 Risk of Readmission: Low Risk Care Management Discharge Plan Reason for Hospitalization: Cellulitis with abscess, NIDDM with hyperglycemia Discharge Plan: Tabatha returned home today with new orders for HH RN for daily dressing changes. Her brother will drive her home via private vehicle. She will follow up with surgical services, her PCP and her discharge plan of care. She requested FMLA and STD paperwork to be filled out; surgical services are comple ting them, and Tabatha will pick them up at her follow up appointment. She is happy to be returning home. Patient/Family Education Needs: Review discharge instructions and limitations, discussion of self care needs including ask me three. Services Needed at Discharge: Home Health Care Services (new HH RN)
--- NOTE | 2023-06-30 09:01 | PDOC.HHF2F_ITS ---
Home Health Referral Home Health Orders Clinical synopsis of why skilled professionals are needed: wound care, dressing changes in morbid obese diabetic patient, unable to self perform d/t location Medical diagnosis necessitation home health referral: cellulitis with abscess s/p I&D Registered Nurse: Check all that apply Instruct on new or changed medication(s)/assess compliance: Ordered Assess for exacerbation of medical condition, instruct patient/caregivers on signs and symptoms to report for early detection: Ordered Assess wound for signs and symptoms of infection, instruct on wound care and/or provide skilled wound care consisting of: increased erythema, drainage, pain, fever or signs of treatment failure or worsening Other: dressing changes daily, wet to dry with richardson. Home Bound Status Describe why leaving home would require a considerable and taxing effort: Side effects from pain medication (sedation/drowsiness) Encounter Date and Reason: I certify that a FTF encounter for this patient was performed on June 29, 2023 and that such encounter was related to the primary reason the patient requires home health services. The encounter was conducted in the following manner: * By me as the certifying physician, [employer], PA or * By an inpatient physician, [employer] or PA during an inpatient stay who communicated findings to me, Certification And Authentication I certify that I composed the above information based on my clinical judgment relating to this patient's medical condition and, if applicable, clinical findings communicated to me by the NPP or inpatient physician who performed the FTF encounter. Name of Provider that will be monitoring home health services: Caryl Galeas
== END 2023-06-29 15:30 | disposition home health service (06) | DRG 603 ==
LOC: ER 22:27 → MS 23:14
PROVIDERS: Internal Medicine; Nurse Practitioner Family; Surgery; Admitting Provider Family Medicine; Emergency Provider Emergency Medicine Emergency Medical Services; PCP Nurse Practitioner Family; Visit Provider Family Medicine
PROC: 0J960ZZ Drainage of Chest Subcutaneous Tissue and Fascia, Open Approach (ICD-10-PCS; CPT 10061; principal; 2023-06-23 15:00)
DX: L02.213 Cutaneous abscess of chest wall (principal); E87.20 Acidosis, unspecified; E87.1 Hypo-osmolality and hyponatremia; Z68.43 Body mass index [BMI] 50.0-59.9, adult; B95.62 Methicillin resistant Staphylococcus aureus infection as the cause of diseases classified elsewhere; L03.313 Cellulitis of chest wall; E11.65 Type 2 diabetes mellitus with hyperglycemia; E83.42 Hypomagnesemia; E03.9 Hypothyroidism, unspecified; I10 Essential (primary) hypertension; E66.9 Obesity, unspecified; G47.33 Obstructive sleep apnea (adult) (pediatric); G25.81 Restless legs syndrome; N39.3 Stress incontinence (female) (male); F17.290 Nicotine dependence, other tobacco product, uncomplicated; J32.9 Chronic sinusitis, unspecified; Z79.84 Long term (current) use of oral hypoglycemic drugs
CPT/HCPCS: 10060; 10061; 97597; 36569; 36415; 36416; 71045; 77001; 80048; 80053; 82962; 85652; 87040; 87077; 87081; 90471; 93005; 96365; 96366; 96368; 96372; 96375; 99285; J1650; 71260; 80202; 81003; 81015; 83036; 83605; 83735; 84439; 84443; 84484; 85025; 85610; 86140; 87070; 87186; 87205; 93010; 99223; 99232; 99239; 99284; J0131; J0690; J1170; J1885; J2060; J2270; J2405; J2543; J2704; J3475; J3490

== ENCOUNTER 2023-11-02 16:38 | Outpatient (REF) | payer OTHER, SELFPAY ==
[2023-11-02 21:17] LABS: Hemoglobin A1C 8.1 % (<5.7)
[2023-11-02 21:21] LABS: ALT 29 U/L (14-59); AST 19 U/L (15-37); Albumin 3.3 g/dL (3.4-5.0); Alkaline Phosphatase 156 U/L (46-116); Anion Gap 7.1 mmol/L (3-11); BUN 7 mg/dL (7-18); Bilirubin, Total 0.3 mg/dL (0.2-1.0); CO2 30.9 mmol/L (21.0-32.0); Calcium 10.1 mg/dL (8.5-10.1); Chloride 102 mmol/L (98-107); Creatine Kinase 84 U/L (26-192); Estimated GFR 66.95 (mL/min/1.73m2); FREE T4 0.83 ng/dL (0.76-1.46); Glucose 124 mg/dL (74-106); Potassium 4.9 mmol/L (3.5-5.1); Sodium 140 mmol/L (136-145); TSH 24.61 uIU/mL (0.36-3.74); Total Protein 7.5 g/dL (6.4-8.2)
[2023-11-02 23:05] LABS: HDL Cholesterol 51 mg/dL (40-60)
[2023-11-02 23:28] LABS: LDL CHOLESTEROL 130 mg/dL (<100)
== END 2023-11-02 16:39 | disposition home or self-care (01) ==
LOC: NCHCN 16:38
PROVIDERS: PCP Nurse Practitioner Family; Visit Provider Nurse Practitioner Family
DX: E78.5 Hyperlipidemia, unspecified (principal); E03.9 Hypothyroidism, unspecified; E11.9 Type 2 diabetes mellitus without complications
CPT/HCPCS: 80053; 82550; 83721; 83036; 83718; 84439; 84443

== ENCOUNTER 2023-12-19 19:29 | Emergency (ER) | payer OTHER, SELFPAY ==
[2023-12-19] VITALS (17 sets, daily range): BP systolic 116–171; BP diastolic 63–104; PULSE 92–118; RESP 15–26; TEMP 36.8–37.1; O2SAT 91–100
--- NOTE | 2023-12-19 19:39 | ED.GENADUL_ITS ---
HPI General Mode of arrival: ambulatory . Date/Time Provider Initiated Documentation: 12/19/23 19:30 . Limitations to Documentation: no limitations . Information obtained by: patient . History of Present Illness 53 year old F presents to the emergency department with the chief complaint of tongue swelling, described as moderate, Patient started experiencing this hour(s) (2) and it has been constant. No relieving factors improve symptom(s), No exacerbating factors reported . Patient notes no other symptoms.; denies chest pain and shortness of breath. Patient did receive the following treatments prior to arrival, other (benadryl) Related Data Home Medications Medication Instructions Recorded Confirmed epinephrine 0.3 mg/0.3 mL 0.3 mg IM DIRECTED 05/22/14 12/19/23 injection, auto-injector (EpiPen 2-Kalyan) ibuprofen 800 mg tablet 800 mg PO PRN 05/22/14 12/19/23 levothyroxine 175 mcg tablet 200 mcg PO DAILY 05/22/14 12/19/23 simvastatin 10 mg tablet 10 mg PO HS 05/22/14 12/19/23 blood sugar diagnostic (FreeStyle 02/17/18 08/12/23 Lite Strips) bupropion HCl 150 mg tablet,12 hr 150 mg PO DAILY 02/17/18 12/19/23 sustained-release (Wellbutrin SR) semaglutide 0.25 mg or 0.5 mg (2 0.5 mg subcut QWEEK 08/12/23 12/19/23 mg/3 mL) subcutaneous pen injector (Ozempic) gabapentin 100 mg capsule 300 mg DAILY 12/19/23 Allergies Allergy/AdvReac Type Severity Reaction Status Date / Time bee pollen [Bee Pollen] Allergy Severe Swelling/Ed Verified 12/19/23 19:37 ifrah metformin AdvReac Other (See Unverified 12/19/23 19:37 Comment) General Stated Complaint: GenMedical TERRY: 3 Review of Systems All systems reviewed & are unremarkable except as noted in HPI and below Constitutional Constitutional: Denies chills, Denies fever(s) and Denies weakness ENT Ears, Nose, Mouth, and Throat: Denies change in voice Cardiovascular Cardiovascular: Denies chest pain and Denies dyspnea Respiratory Respiratory: Denies cough and Denies dyspnea Gastrointestinal Gastrointestinal: Denies abdominal pain, Denies nausea and Denies vomiting Musculoskeletal Musculoskeletal: Denies joint swelling Neurologic Neurologic: Denies weakness Exam Const General: no acute distress Orientation: alert HENMT Head: normal to inspection Ears: external ears normal General nose exam: external nose normal Mouth: oropharynx normal and moist mucous membranes Eyes General: appearance normal, both eyes and all related structures Neck Neck: normal visual inspection Resp Effort & Inspection: normal respiratory effort and able to speak in complete sentences Auscultation: clear to auscultation bilaterally Cardio Jugular venous pressure: no JVD Rate: regular rate Heart Sounds: no murmurs Skin General skin exam: no rashes or lesions noted Neuro General: patient alert and patient oriented x3 Extrem General: normal to inspection Psych Mental Status: mental status grossly normal Course Vital Signs Vital signs: Vital Signs Temperature 36.8 C 12/19/23 19:31 Pulse 118 H 12/19/23 19:31 Blood Pressure 171/104 H 12/19/23 19:31 Pulse Oximetry 95 12/19/23 19:31 Temperature 36.8 C 12/19/23 19:31 Pulse 118 H 12/19/23 19:31 Respiratory Effort Normal 12/19/23 19:34 Respiratory Depth Normal 12/19/23 19:34 Respiratory Pattern Normal 12/19/23 19:34 Blood Pressure 171/104 H 12/19/23 19:31 Pulse Oximetry 95 12/19/23 19:31 Pain Level 0 12/19/23 19:31 Medical Decision Making 53-year-old female with a history of hypertension on lisinopril comes in with a few hours of left-sided tongue swelling. She states she is felt well all day until she noticed her tongue was swelling in the left side, denies any rashes, no respiratory symptoms, no difficulty swallowing or breathing, no gastrointestinal symptoms. She is alert and oriented x 4 and appears well in no distress breathing and swallowing normally, no stridor, no wheezing, no drooling. The left side of her tongue is swollen the right side appears normal and the posterior pharynx appears normal with midline uvula without swelling. She has no rashes clear lung sounds. Given she is on lisinopril suspect SAPNA inhibitor induced angioedema, she has no other findings to suggest anaphylaxis. Will administer TXA, fresh frozen plasma, Solu-Medrol and reassess. Patient has medical decision-making capacity and discussed the risks benefits of receiving fresh frozen plasma, and at this time she consents to having fresh frozen plasma after knowing the risks Patient doing well states she feels her tongue is slightly less swollen after getting TXA, awaiting FFP. Still no stridor, swallowing normally. Labs show glucose over 400. She had just eaten 2 hours ago, normal anion gap so doubt DKA at this time Patient doing well swelling all but gone in the middle of her fresh frozen plasma infusion, will administer 1 unit as she has had near resolution of her swelling. Do not feel she needs to be admitted given resolution of her angioed ifrah, and has known inciting factor of lisinopril. No findings still to suggest anaphylaxis. Will have her hold her lisinopril and discussed with her primary care provider about starting a new antihypertensive. If she tolerates the remaining infusion without complications plan for discharge Differential Diagnosis Differential Diagnosis: angioedema, sapna inhibitor induced angioedema Quality:SDOH Health Related Social Needs: No Data to Display PFSH All Active Problems (Updated 12/19/23 @ 20:45 by Nima Ball MD) Tongue swelling (Acute) Angioedema (Acute) Encounter for wound re-check (Acute) MRSA (methicillin resistant staph aureus) culture positive (Acute) Cellulitis and abscess of other specified site (Acute) Diarrhea (Acute) Cellulitis (Acute) Acute hyperglycemia (Acute) Medical History Bone spur Diabetes mellitus, type II Dyspnea on exertion Female stress incontinence Hypertension Hypothyroidism (acquired) Irregular heart rate Obesity Obstructive sleep apnea (adult) (pediatric) Restless leg syndrome Sinusitis, chronic Smoker Surgical History History of section S/P hernia repair Status post incision and drainage (~06/2023) Social History Smoking/Tobacco Use Status: Current every day Tobacco Type: e-cigarettes Smoking risk assessment performed?: Yes Alcohol Intake: current Alcohol Intake frequency: a few times a month Drug use: Occasionally Substance use type: marijuana Housing: house Do you feel safe at home: Yes Do you feel safe in your relationship?: Yes Discharge Plan Disposition Patient Disposition: Home Condition: Stable Discharge Details Clinical Impression: Angioedema, Tongue swelling Primary Care Provider: Caryl Galeas ED Provider: Nima Ball Home Meds and New Rx's Prescriptions: Continued Ozempic 0.25 mg or 0.5 mg (2 mg/3 mL) pen injector 0.5 mg subcut QWEEK Hold Instructions: Pt Stopped/Never Started bupropion HCl [Wellbutrin SR] 150 MG tablet extended release 12 hr 150 mg PO DAILY (DME) FreeStyle Lite Strips 1 EACH strip 1 ea Miscellaneous BID levothyroxine 175 MCG tablet 200 mcg PO DAILY simvastatin 10 MG tablet 10 mg PO HS ibuprofen 800 MG tablet 800 mg PO PRN epinephrine [EpiPen 2-Kalyan] 0.3 MG/0.3 ML auto-injector 0.3 mg IM DIRECTED Hold Instructions: Pt Stopped/Never Started gabapentin 100 mg capsule 300 mg DAILY Patient Comments: TAKE ONE CAPSULE BY MOUTH AT BEDTIME FOR RESTLESS LEG Discontinued lisinopril 10 MG tablet 10 mg PO QAM Discharge Instructions Instructions: Angioedema (ED) Additional Instructions: Stop taking your lisinopril and discuss with your primary care a different blood pressure medication to be on. Try to follow-up with them within 1 to 2 weeks If you feel more ill, have difficulty breathing, difficulty swallowing liquids or feel tongue swelling recurring return to the emergency department Stand Alone Forms: Work Release
[2023-12-19] MEDS: methylPREDNISolone SUCC 125 MG VIAL IVP (19:45)
[2023-12-19] MEDS: Tranexamic Acid 1,000 MG/10 ML VIAL 1000 MG IVP (19:48)
[2023-12-19 19:57] LABS: Abs Immature Grans 0.05 10^3/uL (0.0-0.06); Absolute Eosinophil Count 0.08 10^3/uL (0.0-0.7); Absolute Lymphocyte Count 2.46 10^3/uL (1.2-3.4); Absolute Monocyte Count 0.85 10^3/uL (0.1-0.8); Basophils % 0.5; Eosinophils % 0.7; HCT 44.1 % (36.0-46.0); HGB 13.8 g/dL (11.2-15.7); Immature Grans % 0.5; Lymphocytes % 22.2; MCH 26.3 pg (27.0-33.0); MCHC 31.3 % (32.0-36.0); MCV 84 fL (80-95); MPV 9.9 fL (8.0-11.0); Monocytes % 7.7; Neutrophils % 68.4; Platelet Count 364 10^3/uL (130-400); RBC 5.24 10^6/uL (3.93-5.22); RDW 14.9 % (11.7-14.6); RDW-SD 45.3 fL; WBC 11.08 10^3/uL (4.4-10.8)
[2023-12-19 19:59] LABS: Absolute Basophil Count 0.06 10^3/uL (0.0-0.2); Absolute Neutrophil Count 7.58 10^3/uL (1.2-6.7)
[2023-12-19 20:20] LABS: ALT 40 U/L (14-59); AST 37 U/L (15-37); Albumin 3.2 g/dL (3.4-5.0); Alkaline Phosphatase 185 U/L (46-116); BUN 17 mg/dL (7-18); Bilirubin, Total 0.3 mg/dL (0.2-1.0); CREATININE 1.1 mg/dL (0.55-1.02); Calcium 10.2 mg/dL (8.5-10.1); Chloride 96 mmol/L (98-107); Estimated GFR 59.71 (mL/min/1.73m2); Glucose 451 mg/dL (74-106); Potassium 4.7 mmol/L (3.5-5.1); Sodium 133 mmol/L (136-145); Total Protein 8.4 g/dL (6.4-8.2)
[2023-12-21 09:19] LABS: Ferritin 38 ng/mL (8-252)
== END 2023-12-19 22:07 | disposition home or self-care (01) ==
PROVIDERS: Emergency Provider Emergency Medicine; PCP Nurse Practitioner Family
DX: T78.3XXA Angioneurotic edema, initial encounter (principal); R22.0 Localized swelling, mass and lump, head
CPT/HCPCS: 80053; 86850; 86900; 86901; 96374; 96375; 99284; 82728; 85025; 99283; J2930; P9059

== ENCOUNTER 2023-12-28 07:23 | Inpatient (IN) | payer OTHER, SELFPAY ==
[2023-12-28] VITALS (83 sets, daily range): BP systolic 131–172; BP diastolic 96–107; PULSE 77–131; RESP 12–31; TEMP 36.8–36.9; O2SAT 92–98
--- NOTE | 2023-12-28 07:15 | DI.RAD_ITS ---
Exam(s) XR SHOULDER LT COMPLETE 2+V EXAM: XR SHOULDER LT COMPLETE 2+V CLINICAL HISTORY: Left shoulder pain. TECHNIQUE: 2D digital imaging was performed. COMPARISON: No exams were available for comparison FINDINGS: 3 views No evidence of acute fracture nor dislocation nor significant soft tissue calcifications in the subac romial space is not diminished. Mild degenerative changes in the AC joint. IMPRESSION: No acute osseous findings in the left shoulder. Incidentally noted are increased markings throughout the entire visualized field. DATA REPOSITORY: RADIATION DOSE DELIVERED:
--- NOTE | 2023-12-28 07:15 | RT.EKG_ITS ---
APPROVED REPORT Exam: Resting ECG Reason for Exam: Left arm weakness Patient Location: E HR:96 bpm ECG Measurements Heart Rate 96 AXIS SD 174 P 43 QRSd 81 QRS -7 QT 351 T 43 QTc 444 Conclusion Sinus rhythm...normal P axis, V-rate 60- 99 Low voltage, precordial leads...precordial leads <1.0mV Anteroseptal infarct, old...Q >40mS, V1-V2 Narrow complex normal sinus rhythm at a rate of 96. Left axis deviation no signs of LVH based on vol tage criteria in aVL. QTc and SD within normal limits. Poor R wave progression. No ST segment abno rmalities. No T wave inversions. Compared to prior dated last year normal sinus rhythm has replaced sinus tachycardia. S1 every 3 is persistent. Low voltage is persistent.
--- NOTE | 2023-12-28 07:15 | DI.CT_ITS ---
Exam(s) CT BRAIN NECK CTA EXAM: CT BRAIN NECK CTA CLINICAL HISTORY: Left arm weakness. TECHNIQUE: Imaging Protocol: Axial CT angiography was performed with multi-slice acquisition and mu lti-planar and/or 3D reconstructions. CONTRAST MATERIAL: Intravenous: Omnipaque 350 Contrast volume:structured data in ml COMPARISON: CT CT ABDOMEN PELVIS W from 07/29/2021 FINDINGS: CTA Neck W: Incidental: Increased markings in both upper lobes noted. Aortic arch anatomy: The aortic arch anatomy is conventional and there is no significant stenosis at the origin of the great vessels off of the aortic arch. No intimal flap evident. Anterior circulation: Both common carotid arteries ascend with normal luminal diameters. On the right side there is calcified plaque on the medial wall of the carotid bifurcation and proxima l right ICA. Approximately 30 percent stenosis. The right ICA above this level in the neck is paten t as well as in the skull base-carotid canal. The left side there is also calcified plaque at the ca rotid bifurcation and proximal left ICA. There is approximately 50 percent stenosis at this level. Posterior circulation: Both vertebral arteries originate in conventional fashion off of the subclavian arteries and there is no obvious stenosis at the origin of the vertebral arteries. Both vertebral arteries ascend with approximately equal luminal diameters in the foramen transverse a jamie without evidence of intraluminal thrombus nor dissection. At the skull base the vertebral arteri es are only faintly visualized but appear to contribute to the formation of the thin basilar artery. CTA Brain W: Anterior circulation: Both internal carotid arteries are patent in the skull base-carotid canals as well as within the cave rnous sinuses. The supraclinoid aspects of the ICAs are patent. Both A1 segments are patent as are the anterior cer ebral arteries and there is no evidence of aneurysm at the level of the anterior communicating artery . Both middle cerebral arteries are patent with no evidence of significant stenosis nor intraluminal th rombus. There also no aneurysms of these vessels. Posterior circulation: The basilar artery is a thin vessel which is minimally opacified. The posterior cerebral arteries ar e predominantly supplied by posterior communicating arteries on both sides the ytmdrm-au-Frquig. There is no evidence of aneurysm at the tip of the basilar artery nor elsewhere in the gjgjfj-on-Zvln is. CT BRAIN: There is no evidence of intracranial hemorrhage, mass effect, or shift of midline structures. There are no extra-axial fluid collections. Ventricles are not enlarged or shifted. There are no ring enh ancing lesions in the brain and no abnormal meningeal enhancement. IMPRESSION: 1. This calcified plaque at the carotid bifurcations and proximal internal carotid arteries bilateral ly. There is approximately 30 percent stenosis on the right side and 50 percent stenosis on the left side. 2. Thin posterior circulation. Both vertebral arteries exhibit thin caliber as does the basilar art tammi. This is most probably developmental and indeed both posterior cerebral arteries are supplied by the anterior circulation via bilateral posterior communicating arteries on both sides of the [place]. 3. No obvious aneurysms 4. No acute intracranial findings. 5. If clinically indicated follow-up MRI can be performed. Discussed with ER physician RADIATION DOSE DELIVERED: 2,596.89mGy.cm Total DLP DATA REPOSITORY: All CT scans at this facility are submitted to the National Radiology Data Registry (NRDR) Dose Index Registry (DIR) with the [employer] (ACR). RADIATION OPTIMIZATION: All CT scans at this facility use at least one of these dose optimization te chniques: automated exposure control; mA and/or kV adjustment per patient size (includes targeted exa ms where dose is matched to clinical indication); or iterative reconstruction.
--- NOTE | 2023-12-28 07:15 | DI.RAD_ITS ---
Exam(s) XR CHEST 1V IN DI DEPT EXAM: XR CHEST 1V IN DI DEPT CLINICAL HISTORY: concern for CVA. TECHNIQUE: 2D digital imaging was performed. COMPARISON: CT CT CHEST W from 06/21/2023 CR XR LINE PLACEMENT PICC/CVA from 06/24/2023 CR XR PORTABLE CHEST AP POST LINE from 06/24/2023 FINDINGS: Single AP portable view. Heart size is upper normal. The mediastinum is not widened. Symmetrical increased interstitial markings throughout both lungs noted, not associated with Adolfo B lines nor obvious pleural effusions. IMPRESSION: Increased markings throughout both lung doyle. Possibly exaggerated by portable technique and body habitus. Nevertheless cannot exclude element of pulmonary edema given the appearance of the lung fie lds. There are no pleural effusions evident on this portable view. DATA REPOSITORY: RADIATION DOSE DELIVERED:
--- NOTE | 2023-12-28 07:15 | W.ED.GENAD ---
HPI General Date/Time Provider Initiated Documentation: 12/28/23 07:25. HPI Narrative: MDM This is an overall very well-appearing mildly tachycardic but normothermic 53-year-old ozfs-jutp-rxayuyqi female with objective left arm weakness and risk factors of hypertension hyperlipidemia and diabetes concerning for CVA for which patient will undergo a CT head. Patient is outside the window for tPA given her symptoms began approximately 2 days ago. I considered large vessel occlusion however the patient has no aphasia nor neglect. Nonetheless we will obtain vessel imaging to further risk stratify the patient. If her CT is reassuring we will proceed to MRI to assess for acute ischemic stroke. No fevers no nuchal rigidity to suggest meningitis. No history of thoracic rib to suggest thoracic outlet syndrome. Not altered to suggest encephalitis. No history of tonic-clonic activity to suggest seizure so I do not feel that the patient requires an EEG. Patient is able to touch her left hand to her contralateral right shoulder so I am not suspicious for any shoulder dislocation. No significant erythema to the joint and no history of IV drug use to suggest increased risk for septic joints. I considered adhesive capsulitis however this should not cause hand weakness. No erythema to suggest cellulitis. No fluctuance to suggest abscess. No pain out of proportion to suggest necrotizing soft tissue infection. No chest pain to suggest dissection however given tachycardia will obtain an ECG. Will also obtain a chest x-ray and a left shoulder film. Doubt electrolyte abnormalities given no vomiting however given elevated blood pressure will obtain basic labs. Based on the patient's age my suspicion for multiple sclerosis is low. No recent URI symptoms to suggest Novak Joyce variant Guillain-Nolasco?. No rash to suggest zoster. No vomiting or dizziness to suggest posterior circulation CVA. Patient is off of all of her home antihypertensive medications given presentation last week concerning for angioedema. She will likely benefit from reinitiation of antihypertensive medications. Will ensure she does not have any CVA prior to reinitiating antihypertensive with low-dose amlodipine. Patient had noticed some lower extremity swelling does feel more short of breath when she lies flat on her back. 8:15 AM CBC lacks anemia thrombocytopenia and leukocytosis. 9:15 AM No obvious ischemic nor hemorrhagic CVA my preliminary interpretation of the patient's CT head so I ordered an MRI cervical spine and MRI brain. 9:45 AM Troponin negative. Given duration of time since symptoms began will defer repeat troponin testing. Patient metabolic panel showing hyperglycemia but normal bicarbonate??no anion gap. Not consistent with DKA. Elevated TSH. Patient is known hypothyroid. 10:15 AM No obvious hemorrhage nor acute abnormalities reported on CT brain. Patient did have increased interstitial markings bilateral lung doyle. She is not hypoxic and no history of heart failure. I completed a limited bedside ultrasound which showed normal EF with bilateral B-lines. Will attempt to touch base with the patient's primary care provider and consider initiating diuretics. I do not feel patient requires hospitalization but I am concerned for heart failure with preserved ejection fraction. Another consideration is pulmonary hypertension. Patient is not wheezing to suggest asthma and has no history of reactive airway disease. 10:37AM I spoke with patient's primary care provider Caryl Galeas. She requested a formal echocardiogram. If patient is not having a CVA will initiate 40 mg of oral furosemide. Caryl will follow-up with patient tomorrow. 11:34 AM Reassuring normal proBNP. 4:57 PM Late charting due to patient care. Patient was found to have an acute CVA. I spoke with Dr. Harding from neurology who advised echo with bubble study and aspirin only. She advised given timeline that patient could slowly have her blood pressure down titrated. I ordered 324 mg of chewable aspirin. I spoke to Dr. Brady who agreed graciously to accept the patient for hospitalization. I updated the patient on her CVA. Chronic conditions affecting the care of the patient: Diabetes hypertension hyperlipidemia obesity History obtained from an outside historian: Paramedics External record review: [facility] [place] Diagnostic interpretations performed by me: Per my independent interpretation chest x-ray shows: No widened mediastinum. No loss of AP window. No acute cardiopulmonary process. Per my independent interpretation EKG shows: Narrow complex normal sinus rhythm at a rate of 96. Left axis deviation no signs of LVH based on voltage criteria in aVL. QTc and PA within normal limits. Poor R wave progression. No ST segment abnormalities. No T wave inversions. Compared to prior dated last year normal sinus rhythm has replaced sinus tachycardia. S1 every 3 is persistent. Low voltage is persistent. ]Medications: Aspirin Social determinants of health affecting disposition: N/A Management discussed with: Discussed with neurology and hospitalist Treatment/interventions considered: N/A Response to therapies provided: N/A HPI This is a beoz-jwfm-vojijnzc 53-year-old female with a history of diabetes hypertension hyperlipidemia and obesity arriving to the emergency department via paramedics in the setting of left arm weakness. Patient reports that her weakness began 2 days ago. She says that she developed pain in her left shoulder and in her left neck. It has been steadily worsening and now she has weakness and difficulty coordinating her left hand. She has never had similar symptoms in the past. She takes aspirin daily. She has a history of hypertension hyperlipidemia and diabetes. She has been off of her home antihypertensive medications for several weeks since her presentation with angioedema. She denies any trauma to her left arm. She is due to see her primary care provider tomorrow. She this morning developed a gradual onset headache. She has been nauseous but has not been vomiting. She has no history of multiple sclerosis. She denies fevers and chest pain. At baseline she does have some shortness of breath when she ambulates but has no worsening shortness of breath at the moment. No diarrhea no abdominal pain. She is a daily smoker, rarely drinks ethanol and denies IV drug use. She occasionally smokes marijuana. Exam General: Well-appearing in no acute distress speaking in complete sentences. Head: Normocephalic, atraumatic. Eye:[Pupils equal, round reactive to light.] Extraocular eye movements intact. No conjunctival injection. No scleral icterus. Ear, nose, mouth, throat: Grossly normal inspection. Normal voice, handling secretions normally. Neck: Trachea midline. Cardiovascular: Well-perfused distal extremities. Rapid regular rate and rhythm Respiratory: Nonlabored respiration. Clear lungs bilaterally Gastrointestinal: Nondistended abdomen. Musculoskeletal: No edema. Moving all 4 extremities spontaneously. Skin: Normal for age and race, grossly normal temperature and turgor. No acute rash. Neurologic: Alert and appropriate, no apparent acute deficits. Cranial nerves II through XII intact grossly. Left upper extremity weakness. Patient has only 3 out of 5 left upper extremity strength. 3-5 computer analyst strength in the left hand. Left hand warm well-perfused 2+ left radial pulse. Bilateral lower extremities 5 out of 5 strength. GCS 15. NIH stroke scale 2 secondary to left arm motor drift with only some effort against gravity. Psychiatric: Mood and manner are appropriate. Grooming and personal hygiene are appropriate. Related Data Home Medications Medication Instructions Recorded Confirmed epinephrine 0.3 mg/0.3 mL 0.3 mg IM DIRECTED 05/22/14 12/28/23 injection, auto-injector (EpiPen 2-Kalyan) ibuprofen 800 mg tablet 800 mg PO PRN 05/22/14 12/28/23 levothyroxine 175 mcg tablet 225 mcg PO DAILY 05/22/14 12/28/23 simvastatin 10 mg tablet 10 mg PO HS 05/22/14 12/28/23 blood sugar diagnostic (FreeStyle 02/17/18 12/28/23 Lite Strips) bupropion HCl 150 mg tablet,12 hr 150 mg PO DAILY 02/17/18 12/28/23 sustained-release (Wellbutrin SR) semaglutide 0.25 mg or 0.5 mg (2 0.5 mg subcut QWEEK 08/12/23 12/28/23 mg/3 mL) subcutaneous pen injector (Ozempic) gabapentin 100 mg capsule 300 mg PO DAILY 12/19/23 12/28/23 dulaglutide 0.75 mg/0.5 mL 0.75 mg subcut .weekly 12/28/23 12/28/23 subcutaneous pen injector (Trulicity) Allergies Allergy/AdvReac Type Severity Reaction Status Date / Time bee pollen [Bee Pollen] Allergy Severe Swelling/Ed Verified 12/28/23 07:15 ifrah metformin AdvReac Other (See Unverified 12/28/23 07:15 Comment) General TERRY: 3 Medical Decision Making Quality:SDOH Health Related Social Needs: No Data to Display PFSH All Active Problems (Updated 12/28/23 @ 14:53 by Thuy Brady MD) Discharge planning issues (Acute) DVT prophylaxis (Acute) Hyperlipidemia (Acute) Acute cerebrovascular accident (CVA) (Acute) Tongue swelling (Acute) Angioedema (Acute) Encounter for wound re-check (Acute) MRSA (methicillin resistant staph aureus) culture positive (Acute) Cellulitis and abscess of other specified site (Acute) Diarrhea (Acute) Cellulitis (Acute) Acute hyperglycemia (Acute) Medical History Bone spur Diabetes mellitus, type II Dyspnea on exertion Female stress incontinence Hypertension Hypothyroidism (acquired) Irregular heart rate Obesity Obstructive sleep apnea (adult) (pediatric) Restless leg syndrome Sinusitis, chronic Smoker Surgical History History of section S/P hernia repair Status post incision and drainage (~06/2023) Social History Smoking/Tobacco Use Status: Current every day Tobacco Type: e-cigarettes Smoking risk assessment performed?: Yes Alcohol Intake: current Alcohol Intake frequency: a few times a month Drug use: Occasionally Substance use type: marijuana Housing: house Do you feel safe at home: Yes Do you feel safe in your relationship?: Yes Discharge Plan Disposition Patient Disposition: Admit to [facility] Discharge Details Clinical Impression: Acute cerebrovascular accident (CVA) Primary Care Provider: Caryl Galeas ED Provider: Provider,Temporary Home Meds and New Rx's Prescriptions: No Action Ozempic 0.25 mg or 0.5 mg (2 mg/3 mL) pen injector 0.5 mg subcut QWEEK Hold Instructions: Pt Stopped/Never Started bupropion HCl [Wellbutrin SR] 150 MG tablet extended release 12 hr 150 mg PO DAILY (DME) FreeStyle Lite Strips 1 EACH strip 1 ea Miscellaneous BID levothyroxine 175 MCG tablet 225 mcg PO DAILY simvastatin 10 MG tablet 10 mg PO HS ibuprofen 800 MG tablet 800 mg PO PRN epinephrine [EpiPen 2-Kalyan] 0.3 MG/0.3 ML auto-injector 0.3 mg IM DIRECTED Hold Instructions: Pt Stopped/Never Started gabapentin 100 mg capsule 300 mg PO DAILY Patient Comments: TAKE ONE CAPSULE BY MOUTH AT BEDTIME FOR RESTLESS LEG Trulicity 0.75 mg/0.5 mL pen injector 0.75 mg SUBCUT .weekly Patient Comments: INJECT 0.75MG UNDER THE SKIN ONCE WEEKLY POCUS Exam (ED) Limited Cardiac Exam DATE OF EXAM: 12/28/23 TIME OF EXAM: 10:31 PROVIDER THAT PERFORMED THE STUDY: Noé Ojeda IS THIS A REPEAT EXAM DURING THIS ENCOUNTER: no REASON FOR EXAM: Dyspnea VISUALIZED STRUCTURES: Four Chambers, Left ventricle, LVOT, Aortic valve and Interventricular septum VIEW OBTAINED: Apical 4-Chamber, Parasternal long-axis, Subxiphoid and Other (Lungs bilaterally) PERTINENT FINDINGS/IMPRESSION: Other Good squeeze, aortic outflow track less than 4 cm, RV less than LV, no significant pericardial effusion, bilateral B-lines. ; No LV dysfunction and No pericardial effusion Exam complete
[2023-12-28 08:09] LABS: Abs Immature Grans 0.04 10^3/uL (0.0-0.06); Absolute Basophil Count 0.03 10^3/uL (0.0-0.2); Absolute Eosinophil Count 0.08 10^3/uL (0.0-0.7); Absolute Lymphocyte Count 1.98 10^3/uL (1.2-3.4); Absolute Neutrophil Count 7.18 10^3/uL (1.2-6.7); Basophils % 0.3; Eosinophils % 0.8; HCT 40.4 % (36.0-46.0); HGB 12.8 g/dL (11.2-15.7); Immature Grans % 0.4; Lymphocytes % 19.8; MCH 26.5 pg (27.0-33.0); MCHC 31.7 % (32.0-36.0); MCV 84 fL (80-95); MPV 9.7 fL (8.0-11.0); Neutrophils % 71.7; Platelet Count 337 10^3/uL (130-400); RBC 4.83 10^6/uL (3.93-5.22); RDW 15.5 % (11.7-14.6); RDW-SD 46.6 fL; WBC 10.01 10^3/uL (4.4-10.8)
[2023-12-28] MEDS: Normal Saline 500 ML IV (08:21)
[2023-12-28] MEDS: Omnipaque 350 MG/ML 100 ML BTL IJ (09:01)
[2023-12-28] MEDS: Normal Saline - Diluent 50 ML VIAL IJ (09:13)
--- NOTE | 2023-12-28 09:15 | DI.MRI_ITS ---
Exam(s) MR BRAIN WO EXAM: MR BRAIN WO CLINICAL HISTORY: Left upper extremity weakness TECHNIQUE: Multiplanar multisequence MRI of the brain was performed. COMPARISON: CT CT BRAIN NECK CTA from 12/28/2023 FINDINGS: CEREBRAL PARENCHYMA: There is no evidence of intracranial hemorrhage, mass effect, or shift of midline structures. There are no extra-axial fluid collections. Ventricles are not enlarged or shifted. There is no significant focal signal abnormality in the cerebellar hemispheres nor within the maame, m idbrain, and thalami. There are multiple foci of FLAIR bright signal abnormality in both sides of the brain. On DWI imagin g many of these exhibit restricted diffusion consistent with full foci of ischemia, possibly embolic given the distribution. This is in the right frontal and parietal lobes. PITUITARY GLAND: No mass nor parasellar abnormality. No obvious abnormality in the cavernous sinuses. FLOW VOIDS: The expected flow void are noted. No evidence of obvious aneurysm nor obvious vascular ma lformation. The posterior circulation vessels are thin, as seen on earlier CT angiography study, poss ibly on a developmental basis given that there are bilateral posterior communicating vessels on both sides of the wuzvve-lx-Sgchiv evident on the CTA study. PARANASAL SINUSES: The visualized paranasal sinuses appear unremarkable. No obvious finding ORBITS: No obvious findings. IMPRESSION: There are multiple foci of restricted diffusion in the right side of the brain involving the right fr ontal and parietal lobes. Suspicious for acute infarcts, possibly embolic. Called by myself to emergency room provider. DATA REPOSITORY:
--- NOTE | 2023-12-28 09:15 | DI.MRI_ITS ---
Exam(s) MR CERVICAL SPINE WO EXAM: MR CERVICAL SPINE WO CLINICAL HISTORY: Weakness Left upper extremity TECHNIQUE: Multiplanar multisequence MRI of the cervical spine was performed without intravenous con trast. COMPARISON: No exams were available for comparison FINDINGS: CERVICOMEDULLARY JUNCTION: Intact with no evidence of cerebellar tonsillar ectopia. No obvious abnor mality of the odontoid process. No evidence of Chiari 1 malformation. CERVICAL SPINAL CORD: No evidence of focal cord swelling nor focal cord atrophy. OSSEOUS:There are no cervical fractures evident. No significant osseous lesions in the cervical vert ebrae. INDIVIDUAL LEVELS: C2-3: No disc herniation nor central canal stenosis. No foraminal stenosis. Mild facet arthropathy. C3-4: No disc herniation nor central canal stenosis.No facet arthropathy. No foraminal stenosis. C4-5: No disc herniation nor central canal stenosis.No facet arthropathy. No foraminal stenosis C5-6: This level exhibits moderate disc space narrowing. There is a central-posterolateral right dis c protrusion at this level which extends posteriorly 4-5 mm and is approximately 8 mm wide, this inde nting the anterior right side of the thecal sac. This does not extend into the exiting right neural foramen. Central osseous canal dimensions are within normal limits. No significant foraminal stenos is. C6-7: This level exhibits chronic disc space narrowing and anterior osseous lipping. There is small central subligamentous disc protrusion at this level which indents the thecal sac but not the spinal cord. No obvious facet arthropathy at this level. No foraminal stenosis. C7-T1: No disc herniation nor central canal stenosis. No facet arthropathy.No foraminal stenosis. IMPRESSION: 1. Prominent right-sided disc herniation at C5-6 level as described above. 2. Small central disc protrusion at C6-7 level. No canal stenosis at this level. 3. There is no prominent foraminal stenosis on either side in the cervical spine. DATA REPOSITORY:
[2023-12-28 09:39] LABS: Anion Gap 8.2 mmol/L (3-11); BUN 12 mg/dL (7-18); CO2 26.8 mmol/L (21.0-32.0); Calcium 9.8 mg/dL (8.5-10.1); Chloride 101 mmol/L (98-107); Estimated GFR 66.95 (mL/min/1.73m2); Glucose 321 mg/dL (74-106); Potassium 4.2 mmol/L (3.5-5.1); Sodium 136 mmol/L (136-145); TSH (W/Ref FT4) 11.69 uIU/mL (0.36-3.74); Troponin I < 50 ng/L (< or =60)
[2023-12-28 10:25] LABS: FREE T4 1.35 ng/dL (0.76-1.46)
[2023-12-28 11:07] LABS: NT-proBNP 101 pg/mL (<300)
--- NOTE | 2023-12-28 14:35 | W.PM.HP.N ---
Date of service: 12/28/23 Time of Service: 14:35 Assessment and Plan Assessment and plan (1) Acute cerebrovascular accident (CVA): Status: Acute Assessment and plan: The MRI of the brain reveals multiple foci of restricted diffusion on the right side of the brain involving the right frontal and parietal lobes. This is suspicious for embolic strokes. The case was discussed with Dr. Harding. The patient is to be continued on aspirin. There may be a role for dual antiplatelet therapy. We will discuss the case with vascular surgery due to her bilateral carotid stenosis, worse on the right, which is the likely source of the embolic strokes. Upgrade the statin to atorvastatin 80 mg. Monitor on telemetry. Consult physical and Occupational Therapy. Neurochecks. She does still need a bubble study, which will be obtained tomorrow. (2) Bilateral carotid artery stenosis: Status: Acute Assessment and plan: As above (3) Diabetes mellitus, type II: Assessment and plan: The patient appears to be on Trulicity as an outpatient. While in house, we will be treating her with basal bolus insulin. (4) Hypertension: Assessment and plan: The patient's lisinopril was actually discontinued on her last visit with our emergency department last week when she presented with angioedema felt to be due to lisinopril. We will maintain permissive hypertension strategy. (5) Hypothyroidism (acquired): Assessment and plan: Her TSH is 11.69. I am not sure when her levothyroxine dose was last adjusted. We will need to investigate this. (6) Obstructive sleep apnea (adult) (pediatric): Assessment and plan: We will inquire whether the patient is supposed to be using his CPAP machine. (7) Hyperlipidemia: Status: Chronic Assessment and plan: Upgrade the statin to atorvastatin 80 mg. (8) Tobacco abuse: Status: Acute Assessment and plan: Advised to quit. Politely refused nicotine replacement while in the hospital. (9) DVT prophylaxis: Status: Acute Assessment and plan: Lovenox 60 mg SQ twice daily due to BMI of 52.2 (10) Discharge planning issues: Status: Acute Assessment and plan: Full code History of Present Illness History of Present Illness Chief Complaint: LUE weakness Narrative: Ms Becker is a 53 year old female with PMHx of NIDDM2, HTN, no longer on lisinopril due to an episode of angioedema seen in our ED on 2/12/24, as well as hyperlipidemia, h/o obesity with BMI of 52.2 kg/m2, who presented to [facility] ED today reported 2 days of LUE weakness. The patient specifically denies right upper extremity symptoms, bilateral lower extremity symptoms, visual changes, any difficulty swallowing or speaking, any difficulties with balance. She does have paresthesias, numbness, and weakness in her left upper extremity. She is left-handed. She has not been able to write or hold objects with your left upper extremity. She has been dropping her cups of ice today. She cannot tell me what she was doing exactly when she noticed the symptoms. She did note that at 4 AM this morning the symptoms got worse, so she decided to come in. Her workup in the ED revealed multiple foci of restricted diffusion in right frontal and parietal lobe, suspicious for acute embolic infarcts. The patient was initiated on aspirin. Hospitalist admission was requested with neurology consultation pending. Review of Systems All systems reviewed & are unremarkable except as noted in HPI and below PFSH All Active Problems (Updated 12/28/23 @ 20:47 by Thuy Brady MD) Tobacco abuse (Acute) Bilateral carotid artery stenosis (Acute) Discharge planning issues (Acute) DVT prophylaxis (Acute) Hyperlipidemia (Chronic) Acute cerebrovascular accident (CVA) (Acute) Tongue swelling (Acute) Angioedema (Acute) Encounter for wound re-check (Acute) MRSA (methicillin resistant staph aureus) culture positive (Acute) Cellulitis and abscess of other specified site (Acute) Diarrhea (Acute) Cellulitis (Acute) Acute hyperglycemia (Acute) Medical History Bone spur Diabetes mellitus, type II Dyspnea on exertion Female stress incontinence Hypertension Hypothyroidism (acquired) Irregular heart rate Obesity Obstructive sleep apnea (adult) (pediatric) Restless leg syndrome Sinusitis, chronic Smoker Surgical History History of section S/P hernia repair Status post incision and drainage (~06/2023) Social History Smoking/Tobacco Use Status: Current every day Tobacco Type: e-cigarettes Smoking risk assessment performed?: Yes Alcohol Intake: current Alcohol Intake frequency: a few times a month Drug use: Occasionally Substance use type: marijuana Housing: house Do you feel safe at home: Yes Do you feel safe in your relationship?: Yes Meds Allergies and Home Medications Allergies Allergy/AdvReac Type Severity Reaction Status Date / Time bee pollen [Bee Pollen] Allergy Severe Swelling/Ed Verified 12/28/23 07:15 ifrah metformin AdvReac Other (See Unverified 12/28/23 07:15 Comment) Home Medications Medication Instructions Recorded Confirmed Type epinephrine 0.3 mg/0.3 mL 0.3 mg IM DIRECTED 05/22/14 12/28/23 History injection, auto-injector (EpiPen 2-Kalyan) ibuprofen 800 mg tablet 800 mg PO PRN 05/22/14 12/28/23 History levothyroxine 175 mcg tablet 225 mcg PO DAILY 05/22/14 12/28/23 History simvastatin 10 mg tablet 10 mg PO HS 05/22/14 12/28/23 History blood sugar diagnostic (FreeStyle 02/17/18 12/28/23 History Lite Strips) bupropion HCl 150 mg tablet,12 hr 150 mg PO DAILY 02/17/18 12/28/23 History sustained-release (Wellbutrin SR) semaglutide 0.25 mg or 0.5 mg (2 0.5 mg subcut QWEEK 08/12/23 12/28/23 History mg/3 mL) subcutaneous pen injector (Ozempic) gabapentin 100 mg capsule 300 mg PO DAILY 12/19/23 12/28/23 History dulaglutide 0.75 mg/0.5 mL 0.75 mg subcut .weekly 12/28/23 12/28/23 History subcutaneous pen injector (Trulicity) Exam Narrative Exam Narrative: General: Pleasant obese female, sitting comfortably at the side of the bed, A&Ox3 Neurological: Cranial nerves II to XII intact, left upper extremity is numb, 4 out of 5 strength left upper extremity, 5 out of 5 throughout the remainder of the extremities. Psychiatric: Appropriate speech pattern and content Skin: Visible skin intact HEENT: atraumatic, normocephalic, EOMI, moist mucous membranes, clear oropharynx, no submandibular or cervical lymphadenopathy, no goiter or JVD Cardiovascular: Irregularly irregular rhythm, no murmurs, rubs, or gallops Lungs: Clear to auscultation bilaterally Gastrointestinal: Soft, rotund, nontender Genitourinary: Deferred Extremities: No edema bilateral lower extremity, 1+ pedal pulses bilaterally, no clubbing or cyanosis Results Imaging Imaging Studies: CXR: Increased markings throughout both lung doyle. Possibly exaggerated by portable technique and body habitus. Nevertheless cannot exclude element of pulmonary edema given the appearance of the lung doyle. There are no pleural effusions evident on this portable view. CT/CTA head/neck; 1. This calcified plaque at the carotid bifurcations and proximal internal carotid arteries bilaterally. There is approximately 30 percent stenosis on the right side and 50 percent stenosis on the left side. 2. Thin posterior circulation. Both vertebral arteries exhibit thin caliber as does the basilar artery. This is most probably developmental and indeed both posterior cerebral arteries are supplied by the anterior circulation via bilateral posterior communicating arteries on both sides of the neewwr-[id number]. 3. No obvious aneurysms 4. No acute intracranial findings. 5. If clinically indicated follow-up MRI can be performed. XR L shoulder: No acute osseous findings in the left shoulder. Incidentally noted are increased markings throughout the entire visualized field. MRI brain: There are multiple foci of restricted diffusion in the right side of the brain involving the right frontal and parietal lobes. Suspicious for acute infarcts, possibly embolic. MRI C-spine: 1. Prominent right-sided disc herniation at C5-6 level as described above. 2. Small central disc protrusion at C6-7 level. No canal stenosis at this level. 3. There is no prominent foraminal stenosis on either side in the cervical spine. Echo: LV function is normal. LVEF 60-65%, no segmental wall motion abnormalities, LV filling pressure indeterminate. RV not well visualized. RV is probably normal in size. RV function is probably normal. No significant valvular disease noted. IVC not well visualized. Bubble study ordered, pending. EKG: SR, HR 96, no acute ischemia Labs 12/28/23 07:53 12/28/23 07:53 Labs: Laboratory Results - last 24 hr 12/28/23 12/28/23 07:23 07:53 WBC 10.01 RBC 4.83 Hgb 12.8 Hct 40.4 MCV 84 MCH 26.5 L MCHC 31.7 L RDW 15.5 H Plt Count 337 MPV 9.7 Immature Gran % 0.4 Neutrophils % 71.7 Lymphocytes % 19.8 Monocytes % 7.0 Eosinophils % 0.8 Basophils % 0.3 Nucleated RBC % 0.0 Absolute Neutrophils 7.18 H Absolute Lymphocytes 1.98 Absolute Monocytes 0.70 Absolute Eosinophils 0.08 Absolute Basophils 0.03 Sodium 136 Potassium 4.2 Chloride 101 Carbon Dioxide 26.8 Anion Gap 8.2 BUN 12 Creatinine 1.0 Est GFR (CKD-EPI 2020) 66.95 Glucose 321 H Calcium 9.8 Troponin I < 50 NT-Pro-B Natriuret Pep 101 TSH 11.69 H Free T4 1.35 Last Vital Signs Temp 36.8 C 12/28/23 07:11 Pulse 97 H 12/28/23 11:29 Resp 16 12/28/23 08:17 BP 135/98 H 12/28/23 11:29 Pulse Ox 95 12/28/23 11:30 PAWSS Have you Been Recently Intoxicated or Drunk Within the Last 30 days?: No Have you Ever Experienced Previous Episodes of Alcohol Withdrawal?: No Have you ever Experienced Withdrawal Seizures?: No Have you ever Experienced Delirium Tremens(DT)s?: No Have you ever undergone Alcohol Rehabilitation Treatment (i.e, inpt ot outpatient treatment programs)?: No Have you ever Experienced Blackouts?: No Have you ever Combined Alcohol with other Downers within the last 90 days?: No Have you ever Combined Alcohol with any other Substance of Abuse during the last 90 days?: No Result: 0 Time Spent Time spent with Patient: 55-74 minutes Time was spent: preparing to see the patient(eg.review tests), obtaining and/or reviewing separately otained hiistory, ordering medications,tests, procedures, referring, communicating with other health date night caregiver, indepentently interpreting results, counseling the patient and care coordination
[2023-12-28] MEDS: Aspirin 325 MG TAB PO (14:49)
--- NOTE | 2023-12-28 15:17 | DI.US_ITS ---
APPROVED REPORT EXAM: Comprehensive 2D, Doppler, and color-flow Echocardiogram Patient Location: ER Room/Bed: 6 Blood Bank Manager: Jeane Roth RDCS (AE) Indications: Acute CVA Echo Enhancing Agent Indication: Rule out Shunt Agent(s) / Amount(s) Used: Agitated Saline 30.0 cc Comments: Contrast study was performed with 3 IV injections of 10ccs of agitated normal saline, at [facility], with cough and post valsalva maneuver. Negative contrast study for shunt flow. Other Information Study Quality: Fair. Technically limited study due to body habitus, exam done supine bedside ER. Conclusion This was a limited echocardiogram performed to assess for intracardiac shunting This injection of the agitated saline, no intracardiac shunt was identified Wall motion Atria Saline bubble contrast intravenous injection does not demonstrate PFO.
[2023-12-28] MEDS: Normal Saline Flush 10 ML SYR IVP (15:56)
[2023-12-28] MEDS: Gabapentin 100 MG CAP 300 MG PO (21:15)
[2023-12-28] MEDS: Zolpidem 5 MG TAB PO (21:35)
[2023-12-29] VITALS (29 sets, daily range): BP systolic 112–140; BP diastolic 75–90; PULSE 80–107; RESP 13–26; TEMP 36.2–36.8; O2SAT 92–96
--- NOTE | 2023-12-29 | DI.US_ITS ---
Exam(s) US CAROTID EXAM: US CAROTID CLINICAL HISTORY: B carotid stenosis. TECHNIQUE: Ultrasound carotids performed using grayscale, color-flow, and spectral Doppler imaging. COMPARISON: CT CT BRAIN NECK CTA from 12/28/2023 FINDINGS: RIGHT CAROTID ARTERY: Plaque: There is marked calcific plaque seen in the carotid bulb on the right. There is calcific [place] seen in the proximal right internal carotid artery. Velocity elevation: Please see below. LEFT CAROTID ARTERY: Plaque: Mild calcific plaque is seen in the proximal right internal carotid artery and carotid bulb. Velocity elevation: No hemodynamically significant velocity elevations are seen. VERTEBRAL ARTERIES: Antegrade flow. Measurements: R Bulb: 79cm/s PS / 25.3cm/s ED R CCA: 63.8cm/s PS / 17.5cm/s ED R ECA: 93.5cm/s PS / 18.2cm/s ED R ICA Prox: 280.8cm/s PS / 98.7cm/s ED R ICA Mid: 89.3cm/s PS / 30.5cm/s ED R ICA Distal: 71.2cm/s PS /25.1cm/s ED R Vert: 49.4cm/s PS / 11.8cm/s ED R SVR: 4.4 R DVR: 5.6 L Bulb: 97.9cm/s PS / 26.9cm/s ED L CCA: 66.3cm/s PS / 23.1cm/s ED L ECA: 184.5cm/s PS / 37.6cm/s ED L ICA Prox: 90.1cm/s PS / 31.2cm/s ED L ICA Mid: 94.5cm/s PS / 27.9cm/s ED L ICA Distal: 94.1cm/s PS / 41.8cm/s ED L Vert: 45.4cm/s PS / 10.6cm/s ED L SVR: 1.5 L DVR: 1.2 IMPRESSION: 1. Findings consistent with greater than 70 percent stenosis in the right internal carotid artery. M arked calcific plaque is seen in the carotid bulb and the proximal right internal carotid artery. 2. Mild calcific plaque seen in the left carotid bulb and proximal left internal carotid artery. No hemodynamically significant velocity elevations are seen on the left. (Less than 50 percent stenosis is seen in the left internal carotid artery). Criteria for Carotid Stenosis: Normal: ICA PSV <125 cm/s no plaque or intimal thickening is visible. <50% stenosis: ICA PSV <125 cm/s and plaque or intimal thickening is visible. 50-69% stenosis: ICA PSV is 125-250 cm/s and plaque is visible. >70% stenosis to near occlusion: ICA PSV >250 cm/s with visible plaque and luminal narrowing. DATA REPOSITORY:
[2023-12-29] MEDS: Levothyroxine 175 MCG TAB 225 MCG PO (05:49)
[2023-12-29 06:51] LABS: Abs Immature Grans 0.03 10^3/uL (0.0-0.06); Absolute Basophil Count 0.03 10^3/uL (0.0-0.2); Absolute Eosinophil Count 0.14 10^3/uL (0.0-0.7); Absolute Monocyte Count 0.64 10^3/uL (0.1-0.8); Absolute Neutrophil Count 6.03 10^3/uL (1.2-6.7); Basophils % 0.3; Eosinophils % 1.5; HGB 11.9 g/dL (11.2-15.7); Immature Grans % 0.3; Lymphocytes % 24.3; MCH 26.3 pg (27.0-33.0); MCHC 31.3 % (32.0-36.0); MCV 84 fL (80-95); MPV 9.4 fL (8.0-11.0); Monocytes % 7.1; Neutrophils % 66.5; Platelet Count 296 10^3/uL (130-400); RBC 4.52 10^6/uL (3.93-5.22); RDW 15.3 % (11.7-14.6); RDW-SD 46.2 fL; WBC 9.07 10^3/uL (4.4-10.8)
[2023-12-29 07:04] LABS: BUN 12 mg/dL (7-18); CREATININE 0.8 mg/dL (0.55-1.02); Calcium 9.2 mg/dL (8.5-10.1); Calculated LDL 98 mg/dL (<100); Chloride 102 mmol/L (98-107); Cholesterol 158 mg/dL (<200); Glucose 272 mg/dL (74-106); HDL Cholesterol 40 mg/dL (40-60); Magnesium 1.6 mg/dL (1.8-2.4); Potassium 4.2 mmol/L (3.5-5.1); Sodium 138 mmol/L (136-145); Triglyceride 100 mg/dL (<150)
[2023-12-29 07:14] LABS: Hemoglobin A1C 12.4 % (<5.7)
[2023-12-29] MEDS: Insulin Aspart 300 UNITS/3 ML PEN SC ×4 (08:20→22:08)
[2023-12-29] MEDS: Aspirin E.C. 81 MG TABEC PO (08:23)
[2023-12-29] MEDS: buPROPion-XL 150 MG TABCR PO (08:23)
[2023-12-29] MEDS: Enoxaparin 60 MG/0.6 ML SYR SC ×2 (08:23→22:07)
[2023-12-29] MEDS: Normal Saline Flush 10 ML SYR IVP ×3 (08:26→20:14)
--- NOTE | 2023-12-29 08:27 | OTIE_ITS ---
Occupational Therapy Notes Inpatient Occupational Therapy Evaluation Date: 12/29/23 Referring Doctor:Dr. Brady OT Orders: Non urgent Precautions: Fall, Standard, full PATIENT PROFILE/ADMITTING DIAGNOSIS: Pt is a 53 year old female who was admitted to Med surg with a dx of acute CVA. Past Medical History: All Active Problems (Updated 12/28/23 @ 20:47 by Thuy Brady MD) Tobacco abuse (Acute) Bilateral carotid artery stenosis (Acute) Discharge planning issues (Acute) DVT prophylaxis (Acute) Hyperlipidemia (Chronic) Acute cerebrovascular accident (CVA) (Acute) Tongue swelling (Acute) Angioedema (Acute) Encounter for wound re-check (Acute) MRSA (methicillin resistant staph aureus) culture positive (Acute) Cellulitis and abscess of other specified site (Acute) Diarrhea (Acute) Cellulitis (Acute) Acute hyperglycemia (Acute) Medical History Bone spur Diabetes mellitus, type II Dyspnea on exertion Female stress incontinence Hypertension Hypothyroidism (acquired) Irregular heart rate Obesity Obstructive sleep apnea (adult) (pediatric) Restless leg syndrome Sinusitis, chronic Smoker Surgical History History of section S/P hernia repair Status post incision and drainage (~06/2023) Social History/Home Situation: Pt states that she lives alone and is (I) at her baseline level of function with her ADL/IADL routines. 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 SUBJECTIVE: Pt was sitting on side of the bed when OT arrived, she notes that she has some (L) Ue arm weakness which is limiting her but functionally she reports that she can perform her ADLs with increased performance time at this point. She notes that she is supposed to go home today but is receptive to evaluation in hopes to get on a schedule to increase better control of her (L) UE. OBJECTIVE: General Observation: Pleasant, IV in (R) UE, able to sit (I) and engaging in session, decreased (L) UE gross and fine motor control, decreased functional activiity tolerance. Mental Status: A&Ox3 Pain: No c/o pain in (L) UE ROM: RUE AROM WFL L UE AROM WFL with decreased fine motor control when extended from the body. STRENGTH: RUE 5/5 throughout LUE 4-/5 throughout FUNCTIONAL MOBILITY/ADLS: Transfers Supine-sit (I) Sit-Stand (I) Stand-sit (I) Therapeutic Exercise [id number]: OT educated and trained pt in (L) UE strengthening program consisting of the following exercises to be performed 1x every hour for 10-20 reps 1. Pull theraband apart 2. bicep curls with (L) UE bands 3. (L) UE extension with band 4. Shoulder flexion over head strengthening with band 5. Squeeze towel for psychology associate strength 6. Use (L) UE for all ADL/IADL routines to establish dominant hand care 7. With (B) UE weightbearing into bed with (B) UE stability throughout BALANCE: Static sitting Normal Dynamic Sitting Normal SPECIAL TESTS: Daily Activity Limitations Standardized Measure [facility] AM -PAC ?6 clicks? Daily Activity Inpatient Short Form: Raw score: 23 Standardized score: 51.12 CMS score: 15.86% INFORMED CONSENT/EDUCATION: Pt instructed in purpose of OT Consult and plan of care. ASSESSMENT: Patient is a 53-year-old female referred to occupational therapy services with diagnosis of acute CVA. Patient presents with clinical signs and symptoms consistent with dx, as demonstrated by the following impairment level findings/functional limitations: Impairments in ADL/IADL and leisure activities, decreased (L) UE strength, decreased gross and fine motor control, decreased functional activity tolerance, weakness in (L) UE limiting functional (I) in ADL/IADL routines, decreased functional use in the extended UE position, impairments in fine motor pinch and opening containers or packages. AMPAC score 23 Patient is assessed as a Low 44102 complexity based on the following: History: see above Examination: see functional limitations as noted above Presentation: evolving Decision Making: AMPAC score 23 GOALS Goals x1 week 1. Pt will be (I) and compliant with therapeutic exercise program for progressive strengthening and increased (I) in her ADL/IADL routines with her (L) UE. PLAN OF CARE/TREATMENT PLAN: 1x/day, 5 days/ week x 1week Initiate Occupational Therapy Services for bathing, dressing, grooming, toileting, eating, transfer training. DISCHARGE RECOMMENDATIONS OT recommends that pt return home when medically cleared per MD with outpatient referral for (L) UE strength and conditioning post acute CVA. TREATMENT TIME/MINUTES/CODES [id number], [id number], 30 minutes [facility]IA[facility] [place], [place]
[2023-12-29] MEDS: MAGNESIUM SULFATE 2 GM/50 ML BAG IVPB (09:24)
--- NOTE | 2023-12-29 10:34 | INITIAL_ITS ---
Date of service: 12/29/23 Time of Service: 10:34 Care Management Initial Assmt Initial Assessment REASON FOR HOSPITALIZATION:: acute CVA PREVIOUS FUNCTIONAL STATUS/SOCIAL/FAMILY SUPPORTS:: Tabatha lives in alone in a mobile home in [place], [place]. She had 3 children, one of whom is and the other 2 live out of state. Tabatha also has 2 step children who live in [facility]. 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 She is independent at baseline. CURRENT FUNCTIONAL STATUS:: Tabatha was sitting up in bed when CM met with her. She was pleasant and engaged well with CM. Tabatha shared that her symptoms began about 3 days ago but that she woke up yesterday morning and was unable to effectively use her left hand. It was numb and tingly and floppy. Today she reported that her symptoms have mostly resolved. She understands that she has some narrowing in her right carotid likely the source of her symptoms. She anticipates being discharged tomorrow and denied the need for any services. ADVANCE DIRECTIVES:: none on file Has patient been provided with info about the portal/API?: Yes Did the patient sign up for the portal?: No CODE STATUS:: Full Code INSURANCE COVERAGE / FINANCIAL ISSUES:: CBA CURRENT HOME/COMMUNITY SERVICES/EQUIPMENT:: none PRIMARY CARE PHYSICIAN:: Caryl Galeas POTENTIAL DISCHARGE NEEDS:: follow up with PCP and plan of care PATIENT/FAMILY EDUCATION NEEDS:: Review of discharge instructions, activity, limitations, follow up plan and discuss [employer] TRANSPORTATION:: via private vehicle PLAN:: Anticipate Tabatha will be discharged home with no new services. She will follow up with her community providers and plan of care and transport with family. CM will follow and continue to assess for discharge needs. [facility] All Active Problems (Updated 12/29/23 @ 12:36 by Jessica Harding MD) Left hand weakness (Acute) Tobacco abuse (Acute) Bilateral carotid artery stenosis (Acute) Discharge planning issues (Acute) DVT prophylaxis (Acute) Hyperlipidemia (Chronic) Acute cerebrovascular accident (CVA) (Acute) Tongue swelling (Acute) Angioedema (Acute) Encounter for wound re-check (Acute) MRSA (methicillin resistant staph aureus) culture positive (Acute) Cellulitis and abscess of other specified site (Acute) Diarrhea (Acute) Cellulitis (Acute) Acute hyperglycemia (Acute) Medical History Bone spur Diabetes mellitus, type II Dyspnea on exertion Female stress incontinence Hypertension Hypothyroidism (acquired) Irregular heart rate Obesity Obstructive sleep apnea (adult) (pediatric) Restless leg syndrome Sinusitis, chronic Smoker Surgical History History of section S/P hernia repair Status post incision and drainage (~06/2023) Social History Smoking/Tobacco Use Status: Current every day Tobacco Type: e-cigarettes Smoking risk assessment performed?: Yes Alcohol Intake: current Alcohol Intake frequency: a few times a month Drug use: Occasionally Substance use type: marijuana Housing: house Do you feel safe at home: Yes Do you feel safe in your relationship?: Yes SDOH(Care Management) Screening Will the Patient Participate in the Screening?: Yes Do you worry about having a steady place to live?: no In the past 12 months, have you had to go without electric, gas, oil or water in your home?: choose not to answer Have you or anyone in your house had to go without enough food to eat?: choose not to answer Has lack of transportation kept you from medical appointments or from doing things needed for daily living?: choose not to answer Has anyone in your support network made you feel unsafe for any reason?: choose not to answer
--- NOTE | 2023-12-29 12:31 | W.NEUROCONSU ---
Date of service: 12/29/23 Time of Service: 12:32 Assessment and Plan Assessment and plan (1) Acute cerebrovascular accident (CVA): Status: Acute (2) Left hand weakness: Status: Acute (3) Hyperlipidemia: Status: Chronic (4) Bilateral carotid artery stenosis: Status: Acute (5) Diabetes mellitus, type II: (6) Hypertension: Assessment and plan: Ms. Becker is admitted with scattered R hemisphere ischemic stroke shower manifested by L hand and arm weakness. She has known hypertension, hyperlipidemia, and poorly controlled diabetes along with bilateral R>L carotid stenosis. Etiology of her stroke is likely due to the R carotid stenosis. Work-up: -Vascular surgery consult regarding symptomatic R carotid stenosis Medications: -she is currently on aspirin 81mg daily but was on this as an outpatient - she is past the 48 hour time window, so doesn't meet criteria for DAPT; however, my perference would be to load clopidogrel 300mg x 1 and then transition to 75mg daily - but would defer to vascular surgery -atorvastatin 80mg daily for secondary stroke prevention; goal LDL <70 Other: -Ok to start lowering BP to goal 120-140/<90 -Occupation therapy for upper extremity weakness, activities of daily living - rec'd outpatient -we discussed smoking cessation - she is interested -she will stay out from work for now She should follow-up in neurology clinic in 4-6 weeks. History of Present Illness History of Present Illness Chief Complaint: stroke Narrative: Handedness: LEFT. HPI: Ms. Becker is a 53 year-old with HTN, HLD, DM2, SU intolerant of CPAP (uses on occasion), hypothyroidism, RLS, diabetic neuropathy, smoking, and BMI 52. Ms. Becker presented to the [facility] ER on 12/28/23 for L arm and hand weakness that had started on ~12/26- but was acutely worse upon waking up on 12/28/23. She has no face or leg weakness. She has some numbness in the left shoulder. Her weakness is slightly better today. She was already on ASA 81mg daily at home along with simvastatin 10mg daily. She has been poorly compliant recently with her BP medications along with Wegovy. 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 She doesn't check her FSBS regularly at home. 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 Work-up: -MRI brain (12/28/23): Scattered R frontal and parietal small subacute infarcts. I reviewed these images personally and this is my personal interpretation. -CTA head/neck (12/28/23): Complex plaque bilaterally at the R>L common carotids and ICAs with apparent R>L ICA stenosis. Diminutive posterior circulation. I reviewed these images personally and this is my personal interpretation. -TTE (12/28/23): EF 60-65% with no wall motion abnormalities. Mild concentric remodeling of the LV. LA normal. No PFO. -A1c 12.4 -LDL 98 -MRI c-spine (12/28/23): Limited by motion artifact. C5-6 disc bulge without cord compression. No obvious NF stenosis. I reviewed these images personally and this is my personal interpretation. Review of Systems All systems reviewed & are unremarkable except as noted in HPI and below PFSH All Active Problems (Updated 12/29/23 @ 12:36 by Jessica Harding MD) Left hand weakness (Acute) Tobacco abuse (Acute) Bilateral carotid artery stenosis (Acute) Discharge planning issues (Acute) DVT prophylaxis (Acute) Hyperlipidemia (Chronic) Acute cerebrovascular accident (CVA) (Acute) Tongue swelling (Acute) Angioedema (Acute) Encounter for wound re-check (Acute) MRSA (methicillin resistant staph aureus) culture positive (Acute) Cellulitis and abscess of other specified site (Acute) Diarrhea (Acute) Cellulitis (Acute) Acute hyperglycemia (Acute) Medical History Bone spur Diabetes mellitus, type II Dyspnea on exertion Female stress incontinence Hypertension Hypothyroidism (acquired) Irregular heart rate Obesity Obstructive sleep apnea (adult) (pediatric) Restless leg syndrome Sinusitis, chronic Smoker Surgical History History of section S/P hernia repair Status post incision and drainage (~06/2023) Social History Smoking/Tobacco Use Status: Current every day Tobacco Type: e-cigarettes Smoking risk assessment performed?: Yes Alcohol Intake: current Alcohol Intake frequency: a few times a month Drug use: Occasionally Substance use type: marijuana Housing: house Do you feel safe at home: Yes Do you feel safe in your relationship?: Yes Visit Medication and Allergies Active Medications Generic Name Dose Route Start Last Admin Trade Name Freq PRN Reason Stop Dose Admin Acetaminophen 0 mg 12/28/23 20:42 Acetaminophen 325 Mg Tab PO Q4H PRN PRN Al Hydrox/Mg Hydrox/Simethicone 30 ml 12/29/23 03:51 Mylanta Suspension 30 Ml Cup PO Q2H PRN PRN Aspirin 81 mg 12/29/23 08:30 12/29/23 08:23 Aspirin E.C. 81 Mg Tabec PO 81 mg DAILY JACQUELINE Administration Atorvastatin Calcium 80 mg 12/28/23 20:42 12/29/23 08:24 Atorvastatin 40 Mg Tab PO Not Given QPM JACQUELINE Bupropion HCl 150 mg 12/29/23 08:30 12/29/23 08:23 Bupropion-Xl 150 Mg Tabcr PO 150 mg DAILY JACQUELINE Administration Dextrose 0 gm 12/29/23 03:51 Glucose Oral Gel 15 Gm/37.5 Gm Tube PO DIRECTED PRN Dextrose/Water 0 gm 12/28/23 20:42 Dextrose 50%-Water 25 Gm/50 Ml Syr IVP DIRECTED PRN Docusate Sodium 100 mg 12/29/23 03:51 Docusate Sodium 100 Mg Cap PO TID PRN PRN Enoxaparin Sodium 60 mg 12/28/23 22:00 12/29/23 08:25 Enoxaparin 60 Mg/0.6 Ml Syr SC Not Given Q12H JACQUELINE Gabapentin 300 mg 12/28/23 22:00 12/28/23 21:15 Gabapentin 100 Mg Cap PO 300 mg HS [facility] Administration IV Miscellaneous Supplies 1 each 12/29/23 03:51 Iv Access IV DIRECTED [facility] Insulin Aspart 0 units 12/28/23 20:42 12/29/23 11:47 Insulin Aspart 300 Units/3 Ml Pen SC 5 units 0800,1200,1700,2200 [facility] Administration Protocol Levothyroxine Sodium 175 mcg 12/30/23 06:00 Levothyroxine 175 Mcg Tab PO 0600 [facility] Levothyroxine Sodium 50 mcg 12/30/23 06:00 Levothyroxine 50 Mcg Tab PO 0600 [facility] Magnesium Hydroxide 30 ml 12/29/23 03:51 Milk Of Magnesia 30 Ml Cup PO DAILY PRN PRN Miconazole Nitrate 0 gm 12/29/23 03:51 Miconazole 2% Topical Powder 85 Gm Btl TP BID PRN PRN Polyethylene Glycol 17 gm 12/29/23 03:51 Polyethylene Glycol 3350 17 Gm Packet PO DAILY PRN PRN Constipation Sodium Chloride 0 ml 12/29/23 03:51 Normal Saline Flush 10 Ml Syr IVP PRN PRN Sodium Chloride 0 ml 12/29/23 03:51 12/29/23 08:26 Normal Saline Flush 10 Ml Syr IVP 10 ml BID JACQUELINE Administration Sodium Chloride 0 ml 12/29/23 03:51 Normal Saline 10 Ml Vial IJ DIRECTED PRN Zolpidem Tartrate 5 mg 12/28/23 22:00 12/28/23 21:35 Zolpidem 5 Mg Tab PO 5 mg HS MAY REPEAT X1 JACQUELINE Administration Allergies bee pollen [Bee Pollen] Allergy (Severe, Verified 12/28/23 07:15) Swelling/Edema metformin Adverse Reaction (Unverified 12/28/23 07:15) Other (See Comment) Exam Narrative Exam Narrative: Physical Exam: Gen: Patient of apparent stated age, NAD Head and face: no facial or cranial abnormalities Neck: Supple, no meningismus, no occipital tenderness CV: RRR Resp: CTA B/L Abd: soft, nontender, nondistended Ext: No edema. No clubbing or cyanosis. No bony deformity. Neuro Exam: Language: fluency, naming, repetition, and comprehension intact; Mental Status: AAOx3, current events intact, fund of knowledge intact; Speech: no dysarthria Cranial nerves: Funduscopy: not performed CN II: visual doyle intact CN III, IV, : extraocular movements intact, no nystagmus, pupils symmetric and reactive to light CN V: face sensation intact to LT and PP CN VII: no facial asymmetry noted CN VIII: hearing intact bilaterally CN IX, X: palate rises symmetrically CN XI: trapezius/SCM 5/5 bilaterally CN XII: protrudes tongue symmetrically Sensory: intact to LT, PP, vibration, and joint position in all extremities, absent Romberg Motor: bulk and tone intact. Fine motor movements reduced on the L. +L pronator drift. 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 Reflexes: hyporeflexic throughout with absent LE reflexes; toes down going bilaterally; Coordination: FTN and HTS intact bilaterally Gait: not seen Results Last Vital Signs Temp 98.2 F 12/29/23 11:41 Pulse 94 H 12/29/23 11:41 Resp 16 12/29/23 11:41 BP 132/75 12/29/23 11:41 Pulse Ox 92 12/29/23 11:41 Labs 12/29/23 06:42 12/29/23 06:42 Labs: Laboratory Results - last 24 hr 12/29/23 06:42 WBC 9.07 RBC 4.52 Hgb 11.9 Hct 38.0 MCV 84 MCH 26.3 L MCHC 31.3 L RDW 15.3 H Plt Count 296 MPV 9.4 Immature Gran % 0.3 Neutrophils % 66.5 Lymphocytes % 24.3 Monocytes % 7.1 Eosinophils % 1.5 Basophils % 0.3 Nucleated RBC % 0.0 Absolute Neutrophils 6.03 Absolute Lymphocytes 2.20 Absolute Monocytes 0.64 Absolute Eosinophils 0.14 Absolute Basophils 0.03 Sodium 138 Potassium 4.2 Chloride 102 Carbon Dioxide 28.0 Anion Gap 8.0 BUN 12 Creatinine 0.8 Est GFR (CKD-EPI 2020) 87.50 Glucose 272 H Hemoglobin A1c 12.4 H Calcium 9.2 Magnesium 1.6 L Triglycerides 100 Total Cholesterol 158 LDL Cholesterol, Calc 98 HDL Cholesterol 40
--- NOTE | 2023-12-29 13:25 | PT.INIE ---
PT Notes Visit Reasons: Acute CVA Physical Therapy Inpatient Initial Evaluation Date: 12/29/2023 Referring Doctor: Thuy Brady MD PT Orders: PT CONSULT: Limited ability Precautions: Fall. Standard. Activity as tolerated. Patient Profile/Admitting Diagnosis: Tabatha is a 53-year-old L hand dominant female patient admitted to the ED on 12/28/2023 due to weakness in her left upper extremity. She woke up yesterday morning with floppiness in the left arm, numbness in the L shoulder, and weakness in same extremity which prompted her to call the ambulance. She was admitted for management of acute CVA, B CAD, DM, HTN, hypothyroidism, SU, hyperlipidemia, tobacco abuse. PMHX: All Active Problems (Updated 12/28/23 @ 20:47 by Thuy Brady MD) Tobacco abuse (Acute) Bilateral carotid artery stenosis (Acute) Discharge planning issues (Acute) DVT prophylaxis (Acute) Hyperlipidemia (Chronic) Acute cerebrovascular accident (CVA) (Acute) Tongue swelling (Acute) Angioedema (Acute) Encounter for wound re-check (Acute) MRSA (methicillin resistant staph aureus) culture positive (Acute) Cellulitis and abscess of other specified site (Acute) Diarrhea (Acute) Cellulitis (Acute) Acute hyperglycemia (Acute) Medical History Bone spur Diabetes mellitus, type II Dyspnea on exertion Female stress incontinence Hypertension Hypothyroidism (acquired) Irregular heart rate Obesity Obstructive sleep apnea (adult) (pediatric) Restless leg syndrome Sinusitis, chronic Smoker Surgical History History of section S/P hernia repair Status post incision and drainage (~06/2023) US Social History/Home Situation: Tabatha lives alone in a trailer with 6 steps to enter with rails on B sides. Independent with all aspects of ADLs prior to admission. Still drives. Works at [employer]. Equipment Owned/DME: None Subjective: Reports increased strength in her L upper extremity, not as floppy as it was. Still has numbness in the L shoulder as she did yesterday. Denied headache, chest pain, and lightheadedness throughout session. Objective: General Observation: Seated on bedside chair watching TV while drinking her coffee. IV through R UE. Mental Status: Alert and oriented as to person, place, time, and purpose. Able to pay attention, focus, and respond appropriately. Pain: Denies Vital Signs: 135/89 mmHg, HR 120 bpm, SaO2 95% on RA after ambulation ROM: Right Upper Extremity: Shoulder Flexion WFL. Shoulder abduction WFL. Elbow flexion WFL. Wrist flexion WFL. Functional opening and closing of hand WFL. Left Upper Extremity: Shoulder Flexion WFL but forearm inadvertently bent down onto patient's head due to lack of sustained control. Shoulder abduction, unable to hold forearm above head due to weakness. Elbow flexion WFL. Wrist flexion WFL. Functional opening and closing of hand WFL. Right Lower Extremity: Hip flexion WFL. Hip abduction WFL. Knee flexion WFL. Ankle dorsiflexion WFL. Ankle plantarflexion WFL. Left Lower Extremity: Hip flexion WFL. Hip abduction WFL. Knee flexion WFL. Ankle dorsiflexion WFL. Ankle plantarflexion WFL. Strength: Right Upper Extremity: Shoulder flexors 5/5. Shoulder abductors 5/5. Elbow flexors 5/5. Elbow extensors 5/5. Beef Lugger strong. Left Upper Extremity: Shoulder flexors 4-/5. Shoulder abductors 4-/5. Elbow flexors 4-/5. Elbow extensors 3-/5. Beef Lugger weak but functional. Right Lower Extremity: Hip flexors 5/5. Hip abductors 5/5. Knee flexors 5/5. Knee extensors 5/5. Ankle dorsiflexors 5/5. Ankle plantarflexors 5/5. Left Lower Extremity: Hip flexors 5/5. Hip abductors 5/5. Knee flexors 5/5. Knee extensors 5/5. Ankle dorsiflexors 5/5. Ankle plantarflexors 5/5. Bed Mobility/Transfers: Rolling independent Supine to sit independent Sit to supine independent Sit to stand independent Stand to sit independent Bed to reclining chair independent Reclining chair to bed independent Gait: 300 feet supervision with patient just holding onto IV pole. Was short of breath skilled nursing, needing 2 minutes of standing rest. No device needed. Balance: Static Sitting: Normal Dynamic Sitting: Normal Static Standing: Normal Dynamic Standing: Good Special Tests: Mobility Limitations Standardized Measure [facility]-PAC 6 clicks Basic Mobility Inpatient Short Form: Raw Score: 24 CMS Score: 0% deficit Romberg Sign: Negative, minimal sway but no LOB 4-Stage Balance Test: Able to maintain feet together and semi-tandem for 10 seconds. Unable with full tandem and one-legged stance. Informed Consent/Education: Patient was instructed in purpose of PT consult and plan of care. Agreeable to proceed with established PT POC to achieve personal goals. ASSESSMENT: Patient with persistent L upper extremity weakness most pronounced in shoulder and elbow extensors and supinators. Beef Lugger weak but grossly functional. L hand/finger dexterity impaired, requires OT to regain L hand function. B LE unimpaired. Shortness of breath from chronic smoking and high BMI. Patient presents with clinical signs and symptoms consistent with current/admitting diagnoses that have resulted to mobility limitations, gait instability, generalized weakness, and overall ADL decline as demonstrated by the following impairment level findings: 1. Decreased strength to L shoulder, elbow extension, L hand 2. Impaired standing balance 3. Impaired activity tolerance 4. Shortness of breath Impairments are contributing to the following functional limitations: 1. Increased completion time for mobility ADL performance 2. Increased risk for falls 3. Difficulty with managing steps alone safely Patient is assessed as a 59007 moderate complexity based on the following: History: 53-year-old female with past medical history as indicated above Examination: Demonstrable impairment in strength, balance, and mobility level with underlying impairments and functional limitations as exhibited above as well as deficit score of % utilizing the [facility] Mobility Inpatient Short Form Presentation: Evolving Decision Makin moderate complexity Goals: Goals X1 week 1. Independent gait on level surface with use of no AD for at least 300 feet without report of pain nor dyspnea 2. Independent stair negotiation while holding onto B rails for at least 6 steps without report of pain nor dyspnea 3. Independent with home exercise program 4. Normal static and dynamic standing balance/tolerance Plan of Care/Treatment Plan: 1-2x/day, 7 days/week x 1 week. Plan of care has been reviewed with the CORRESPONDENCE RENEW CLERK providing the service under Physical Therapy direction. Initiate Physical Therapy intervention for pain management as needed, strengthening, bed mobility, transfers, gait, stairs, balance training, and use of assistive device. DISCHARGE RECOMMENDATIONS: [] Home with no services [] [] Home with services [specify] [X] Home with outpatient PT and OT for L UE rehab. [] SNF for continued rehabilitation [] [] [facility] [] [] SNF versus LTC based on ability to participate and progress [] TREATMENT CODE/TIME: 57617 x 25 minutes for 1 unit (13:25-13:50). Thank you for the opportunity to participate in the care of this patient. Radha Abarca PT, DPT, CLT [facility] [place], [place]
[2023-12-29] MEDS: Clopidogrel 75 MG TAB PO (14:06)
[2023-12-29] MEDS: Nicotine 2 MG LOZG SUC (17:08)
--- NOTE | 2023-12-29 19:16 | W.PM.PROGNOT ---
Date of Service Date of service: 12/29/23 Time of Service: 17:45 Assessment and Plan Assessment and plan (1) Acute cerebrovascular accident (CVA): Status: Acute Assessment and plan: The MRI of the brain reveals multiple foci of restricted diffusion on the right side of the brain involving the right frontal and parietal lobes. This is suspicious for embolic strokes. There is no evidence of PFO on echo. There is bilateral carotid stenosis, right greater than left. I have discussed the case with vascular surgery at [facility]. They initially recommended obtaining carotid Doppler, which I did. Because the highest velocity on the carotid ultrasound was 280.8 cm/s peak systolic, vascular surgery is not strongly convinced that the patient absolutely requires surgery. Typically, I am told that they do surgery with peak systolic velocities of greater than 300 cm/s. Additionally, this specific patient's neck anatomy would make her very challenging TCAR candidate. At this point, the recommendation is for dual antiplatelet therapy with a statin. She will need annual carotid Dopplers, annual neurology follow-ups. She should also follow-up with vascular surgery. Symptomatically, she is doing quite a bit better. Physical and Occupational Therapy recommended outpatient PT and OT on discharge. The patient is stable for discharge today, but does not have a ride. She will need a cardiac event recorder on discharge. (2) Bilateral carotid artery stenosis: Status: Acute Assessment and plan: As above (3) Diabetes mellitus, type II: Assessment and plan: The patient endorses using long-acting insulin at home. I did initiate her on Lantus tonight. Continue sliding scale insulin as well. Her A1c is 12.4. The patient evidently is not consistent with taking her medications. Compliance needs to be reinforced. (4) Hypertension: Assessment and plan: The patient's lisinopril was actually discontinued on her last visit with our emergency department last week when she presented with angioedema felt to be due to lisinopril. We have been pursuing permissive hypertension strategy. She should follow-up with her primary care provider for antihypertensive management. (5) Hypothyroidism (acquired): Assessment and plan: Her TSH is 11.69. Continue Synthroid. (6) Obstructive sleep apnea (adult) (pediatric): Assessment and plan: Clarifying if she uses CPAP at home. (7) Hyperlipidemia: Status: Chronic Assessment and plan: Continue atorvastatin 80 mg. (8) Tobacco abuse: Status: Acute Assessment and plan: Advised to quit. Did request nicotine lozenges today. (9) DVT prophylaxis: Status: Acute Assessment and plan: Lovenox 60 mg SQ twice daily due to BMI of 52.2 (10) Discharge planning issues: Status: Acute Assessment and plan: Full code Anticipate discharge home tomorrow with a cardiac event recorder, neurology follow-up, vascular surgery follow-up. The patient could have been discharged today, but did not have a ride home. Subjective Subjective Interval history since last seen: Ms. Becker is doing quite a bit better today. She is able to maneuver with her left hand and left upper extremity significantly better, that tingling in her left upper extremity is better, I am sure sensation has improved as well. She has been able to eat with a spoon without hitting her forehead. Apparently this was happening yesterday. She denies dizziness, chest pain, shortness of breath, nausea, vomiting. Exam Narrative Exam Narrative: General: Pleasant obese female, sitting comfortably in her chair, A&Ox3 Neurological: Cranial nerves II to XII intact, bilateral upper extremity strength is 5 out of 5, improved dexterity in left upper extremity, patient observed feeding herself with a spoon. HEENT: EOMI, MMM Cardiovascular: Irregularly irregular rhythm, no murmurs, rubs, or gallops Lungs: Clear to auscultation bilaterally Gastrointestinal: Soft, rotund, nontender Extremities: No edema bilateral lower extremity, 1+ pedal pulses bilaterally, no clubbing or cyanosis Objective Last Vital Signs Temp 36.4 C L 12/29/23 15:20 Pulse 80 12/29/23 15:20 Resp 17 12/29/23 15:20 BP 140/76 12/29/23 15:20 Pulse Ox 96 12/29/23 15:20 Laboratory Results - last 24 hr 12/29/23 06:42 WBC 9.07 RBC 4.52 Hgb 11.9 Hct 38.0 MCV 84 MCH 26.3 L MCHC 31.3 L RDW 15.3 H Plt Count 296 MPV 9.4 Immature Gran % 0.3 Neutrophils % 66.5 Lymphocytes % 24.3 Monocytes % 7.1 Eosinophils % 1.5 Basophils % 0.3 Nucleated RBC % 0.0 Absolute Neutrophils 6.03 Absolute Lymphocytes 2.20 Absolute Monocytes 0.64 Absolute Eosinophils 0.14 Absolute Basophils 0.03 Sodium 138 Potassium 4.2 Chloride 102 Carbon Dioxide 28.0 Anion Gap 8.0 BUN 12 Creatinine 0.8 Est GFR (CKD-EPI 2020) 87.50 Glucose 272 H Hemoglobin A1c 12.4 H Calcium 9.2 Magnesium 1.6 L Triglycerides 100 Total Cholesterol 158 LDL Cholesterol, Calc 98 HDL Cholesterol 40 Objective Narrative Objective Narrative: US carotid: 1. Findings consistent with greater than 70 percent stenosis in the right internal carotid artery. Marked calcific plaque is seen in the carotid bulb and the proximal right internal carotid artery. 2. Mild calcific plaque seen in the left carotid bulb and proximal left internal carotid artery. No hemodynamically significant velocity elevations are seen on the left. (Less than 50 percent stenosis is seen in the left internal carotid artery). PAWSS Have you Been Recently Intoxicated or Drunk Within the Last 30 days?: No Have you Ever Experienced Previous Episodes of Alcohol Withdrawal?: No Have you ever Experienced Withdrawal Seizures?: No Have you ever Experienced Delirium Tremens(DT)s?: No Have you ever undergone Alcohol Rehabilitation Treatment (i.e, inpt ot outpatient treatment programs)?: No Have you ever Experienced Blackouts?: No Have you ever Combined Alcohol with other Downers within the last 90 days?: No Have you ever Combined Alcohol with any other Substance of Abuse during the last 90 days?: No Result: 0 Time Spent with Patient Time Spent with Patient: 35-49 minutes Time was spent: preparing to see the patient(eg.review tests), obtaining and/or reviewing separately otained hiistory, ordering medications,tests, procedures, referring, communicating with other health childcare center administrator, indepentently interpreting results, counseling the patient and care coordination
--- NOTE | 2023-12-29 19:41 | RESPIRATORY ---
RT seen pt. for SU daignosis. Pt. advised that she uses home cpap machine but has not been using it for a week due to parts broken, waiting to get new nasal mask. Pt. has not brought her HU here in hospital and refused to use the one hospital provides. RT has advised pt. to use hospital's cpap machine if she changes her mind later. Pt. states she will be okay without it tonight. She is unsure of it's DME.
[2023-12-29] MEDS: Atorvastatin 40 MG TAB 80 MG PO (20:13)
[2023-12-29] MEDS: Zolpidem 5 MG TAB PO (22:06)
[2023-12-29] MEDS: Gabapentin 100 MG CAP 300 MG PO (22:06)
[2023-12-29] MEDS: Insulin Glargine 300 UNITS/3 ML PEN 30 UNITS SC (22:09)
[2023-12-30 03:41] VITALS: BP 111/75; PULSE 86; RESP 20; TEMP 36.5; O2SAT 93
[2023-12-30] MEDS: Levothyroxine 175 MCG TAB PO (05:18)
[2023-12-30] MEDS: Levothyroxine 50 MCG TAB PO (05:18)
[2023-12-30 07:30] VITALS: BP 100/65; PULSE 83; RESP 16; TEMP 36.7; O2SAT 97
[2023-12-30 07:31] LABS: BUN 13 mg/dL (7-18); Calcium 9.6 mg/dL (8.5-10.1); Chloride 97 mmol/L (98-107); Estimated GFR 66.95 (mL/min/1.73m2); Glucose 294 mg/dL (74-106); Magnesium 1.9 mg/dL (1.8-2.4); Potassium 4.1 mmol/L (3.5-5.1); Sodium 134 mmol/L (136-145)
[2023-12-30] MEDS: Clopidogrel 75 MG TAB PO (08:28)
[2023-12-30] MEDS: buPROPion-XL 150 MG TABCR PO (08:28)
[2023-12-30] MEDS: Aspirin E.C. 81 MG TABEC PO (08:28)
[2023-12-30] MEDS: Normal Saline Flush 10 ML SYR IVP (08:29)
[2023-12-30] MEDS: Insulin Aspart 300 UNITS/3 ML PEN SC ×3 (08:29→12:17)
--- NOTE | 2023-12-30 09:20 | DSE_ITS ---
Date of service: 12/30/23 Time of Service: 09:21 DS: Diagnosis Discharge Diagnosis (1) Acute cerebrovascular accident (CVA): Status: Acute (2) Bilateral carotid artery stenosis: Status: Acute (3) Diabetes mellitus, type II: Asessment and Plan: uncontrolled (4) Hypertension: (5) Hypothyroidism (acquired): (6) Obstructive sleep apnea (adult) (pediatric): (7) Hyperlipidemia: Status: Chronic (8) Tobacco abuse: Status: Acute Discharge Plan Disposition Patient Disposition: Home Condition: Improving Discharge Details Reason For Visit: Acute CVA Admit Date/Time: 12/28/23 14:33 Admit Provider: Thuy Brady Attending Provider: Thuy Brady Primary Care Provider: Caryl Galeas Hospital Course Hospital Course: Ms Becker is a 53 year old L-handed female with PMHx of IDDM2, HTN, hyperlipidemia, SU not compliant with CPAP, obesity with BMI of 52.4 kg/m2, tobacco abuse, who was a patient on [facility] hospitalist service from 12/28/23 until 12/30/23 having presented with LUE weakness, clumsiness, numbness, and paresthesias going on for a couple of days. The patient had a negative CT of the head, had evidence of bilateral carotid stenosis, R>L on the CTA of the head/neck, and an MRI of the brain confirming multiple foci of restricted diffusion in the right side of the brain involving the right frontal and pariet al lobes, consistent with infarcts, possibly embolic. The patient received aspirin in the ED. Neurology was consulted. A vascular surgery consultation was recommended for the R-sided carotid stenosis which was on the side of the stroke. The recommendation was to obtain a carotid doppler, where the highest velocity was 280.8 cm/sec peak systolic/ 98.7cm/sec end-systolic (proximal R ICA). This was again discussed with vascular surgery at [facility], who stated that vascular surgery is usually not done on carotid stenosis with velocities below 300 cm/sec and that the patient has a very challenging neck/plaque anatomy, therefore making medical management a better option at this point. This was recommended to be with DAPT. We have also upgraded her statin to atorvastatin [address] Harding clarified that DAPT should be pursued for 30 days, followed by plavix alone. Additionally, other sources of embolism should be looked at. The patient did not have any arrhythmias during her hospitalization. She had a negative bubble study. She is being discharged home with a cardiac event recorder. Per recommendations of PT/OT, she should follow up with outpatient PT and OT for her LUE weakness, which has markedly improved since her hospitalization. The patient does have uncontrolled IDDM2 with an A1C of 12.4. She did admit to medication noncompliance due to her work schedule. We are increasing her basal insulin dose to 35 units on discharge with instructions to titrate it up by 3 units daily until her fasting blood sugars reach 120. She is also being initiated on scheduled prandial insulin (5 units of aspart with meals). The patient received diabetic education while in the hospital. She could benefit from a continuous glucose monitor which, I understand, she is already planning on obtaining via her PCP. She has an appointment with a life skills educator scheduled. She should follow up with neurology and vascular surgery. She will need annual carotid dopplers. Care for patient as well as completion of her discharge summary on day of discharge took 60 minutes. Home Meds and New Rx's Prescriptions: New clopidogrel 75 mg Tablet 75 mg PO DAILY Qty: 30 0RF insulin aspart U-100 100 unit/mL (3 mL) Insulin Pen 5 unit subcut 0800,1200,1700 Qty: 15 0RF nicotine (polacrilex) 2 mg Lozenge 2 mg SUC Q4H PRN PRN (Reason: nicotine cravings) Qty: 72 0RF levothyroxine 50 mcg Tablet 50 mcg PO 0600 Qty: 30 0RF Rx Instructions: In addition to the 200 mcg dose; a total dose of 250 mcg daily. atorvastatin 80 mg tablet 80 mg PO QHS Qty: 30 0RF Continued bupropion HCl [Wellbutrin SR] 150 MG tablet extended release 12 hr 150 mg PO DAILY (DME) FreeStyle Lite Strips 1 EACH strip 1 ea Miscellaneous BID epinephrine [EpiPen 2-Kalyan] 0.3 MG/0.3 ML auto-injector 0.3 mg IM DIRECTED Hold Instructions: Pt Stopped/Never Started Trulicity 0.75 mg/0.5 mL pen injector 0.75 mg SUBCUT .weekly Patient Comments: INJECT 0.75MG UNDER THE SKIN ONCE WEEKLY levothyroxine 200 mcg tablet 200 mcg PO DAILY Patient Comments: TAKE ONE TABLET BY MOUTH EVERY DAY aspirin [Adult Low Dose Aspirin] 81 mg tablet,delayed release (DR/EC) 81 mg PO DAILY Changed gabapentin 100 mg capsule 300 mg PO HS Qty: 0 0RF Patient Comments: TAKE ONE CAPSULE BY MOUTH AT BEDTIME FOR RESTLESS LEG insulin glargine 100 unit/mL (3 mL) insulin pen 35 unit SUBCUT HS Qty: 15 0RF Patient Comments: INJECT 25 UNITS UNDER THE SKIN EVERY MORNING Discontinued simvastatin 10 MG tablet 10 mg PO HS levothyroxine 25 mcg tablet 25 mcg PO DAILY Patient Comments: TAKE ONE TABLET BY MOUTH EVERY DAY WITH 200MCG No Action ibuprofen 800 MG tablet 800 mg PO PRN Discharge Instructions Instructions: Atorvastatin (By mouth), Clopidogrel (By mouth), Insulin Aspart, Recombinant (By injection), Carotid Artery Disease (DC), Hypoglycemia in a Person with Diabetes (DC), Ischemic Stroke (DC) Additional Instructions: Return to the hospital with any fever, bleeding, chest pain, or shortness of breath, or if you develop a new neurologic deficit. Follow up with outpatient PT and OT, as well as with your PCP, neurology, and vascular surgery. Keep a log of your blood sugars and bring it to your PCP. Check your blood sugars when you first wake up (fasting), before meals, and at your bedtime. Increase the dose of your lantus insulin by 3 units daily until you reach the blood sugar of 120 when you first wake up. Stand Alone Forms: Nursing Discharge Form [facility]: [facility] - (R>L carotid stenosis, h/o R-sided CVA They will call you for an appointment ) Caryl Galeas [Primary Care Provider] - 01/03/24 1:40 pm Jessica Harding MD [ [facility] STAFF PHYSICIAN] - (Please call and make this appointment ) Idris Arshad, PT [PHYSICAL THERAPIST] - (PT and OT eval/treat for LUE weakness following R-sided embolic CVAs. They will call you for this appointment ) Activity:: Activity as Tolerated Equipment/Supplies:: No Equipment Needed Diet:: consistent carb heart healthy Discharge Orders Discharge Orders: Discharge Order (Routine); Ordered 12/30/23 Ordered By: Thuy Brady Other Ambulatory Orders: Cardiac Event Recorder (Routine) Timeframe: 1 Day Facility: [facility] - Location: Respiratory Therapy Ordered By: Thuy Brady Discharge Data Discharge Date/Time-TO BE ENTERED AT DEPARTURE: 12/30/23 14:43 DS: Summary Time Spent with Patient providing and/or coordinating discharge services: Greater than 30 minutes Status at Discharge Functional status at discharge: independent ambulation Overall status at discharge: patient is progressing back to baseline Mental Status: mental status grossly normal Speech and Movement: speech and movement normal Mood: congruent mood Affect: normal affect Quality:SDOH Health Related Social Needs: No Data to Display Exam Narrative Exam Narrative: General: Pleasant obese female, sitting comfortably at the edge of the bed, A&Ox3 Neurological: Cranial nerves II to XII intact, bilateral upper extremity strength is 5 out of 5, improved dexterity in left upper extremity HEENT: EOMI, MMM Cardiovascular: regularly regular rhythm, no murmurs, rubs, or gallops Lungs: Clear to auscultation bilaterally Gastrointestinal: Soft, rotund, nontender Extremities: No edema bilateral lower extremity, 1+ pedal pulses bilaterally, no clubbing or cyanosis Psych Mental Status: mental status grossly normal Speech and Movement: speech and movement normal Mood: congruent mood Affect: normal affect DS: Data Vitals/I&O Vitals and I&O: Vital Signs Temperature 36.5 C 12/30/23 03:41 Temperature Source Tympanic 12/30/23 03:41 Pulse 86 12/30/23 03:41 Pulse Rhythm Regular 12/30/23 08:25 Pulse 87 12/29/23 03:00 Respiratory Rate 20 12/30/23 03:41 Respiratory Effort Normal, Non-Labored 12/30/23 08:25 Respiratory Depth Normal 12/30/23 08:25 Respiratory Pattern Normal 12/30/23 08:25 Blood Pressure 111/75 12/30/23 03:41 Blood Pressure Mean 98 12/29/23 02:33 Pulse Oximetry 93 12/30/23 03:41 Oxygen Delivery Method Room Air 12/30/23 03:41 Oxygen Flow Rate 0 12/30/23 03:41 Fraction of Inspired Oxygen (FIO2) 21 12/29/23 22:59 Pain Level 0 12/29/23 22:24 Intake & Output 12/29/23 12/29/23 12/30/23 11:59 23:59 11:59 Intake Total 180 / 180 10 / 10 Balance 180 / 180 10 / 10 Weight 113.7 kg Intake: IV 10 Oral 180 / 180 Other: Urine Color Yellow Urine Appearance Clear Clear Comment pt used bathroom and flushed by herself. pt stated they'd been voiding frequently during the day per pt, voided x2 this morning Stool Size Copious Stool Characteristics Formed Brown Voiding Methods Toilet Data Completed and Pending Completed studies during hospitalization [Text1]: CXR: Increased markings throughout both lung doyle. Possibly exaggerated by portable technique and body habitus. Nevertheless cannot exclude element of pulmonary edema given the appearance of the lung doyle. There are no pleural effusions evident on this portable view. CTA head/neck: 1. This calcified plaque at the carotid bifurcations and proximal internal carotid arteries bilaterally. There is approximately 30 percent stenosis on the right side and 50 percent stenosis on the left side. 2. Thin posterior circulation. Both vertebral arteries exhibit thin caliber as does the basilar artery. This is most probably developmental and indeed both posterior cerebral arteries are supplied by the anterior circulation via bilateral posterior communicating arteries on both sides of the [id number]. 3. No obvious aneurysms 4. No acute intracranial findings. 5. If clinically indicated follow-up MRI can be performed. XR shoulder L: No acute osseous findings in the left shoulder. Incidentally noted are increased markings throughout the entire visualized field. Echo: There is mild concentric remodeling. Left ventricular systolic function is normal. Left ventricular ejection fraction is estimated visually at 60 to 6 5%. There are no segmental wall motion abnormalities. Left ventricular filling pressure is indeterminate. The right ventricle is not well-visualized. The right ventricle is probably normal in size. Right ventricular function is probably normal. No significant valvular disease noted on the study. Inferior vena cava is not well-visualized. No prior for comparison. MRI c-spine: 1. Prominent right-sided disc herniation at C5-6 level as described above. 2. Small central disc protrusion at C6-7 level. No canal stenosis at this level. 3. There is no prominent foraminal stenosis on either side in the cervical spine. US carotid: 1. Findings consistent with greater than 70 percent stenosis in the right internal carotid artery. Marked calcific plaque is seen in the carotid bulb and the proximal right internal carotid artery. 2. Mild calcific plaque seen in the left carotid bulb and proximal left internal carotid artery. No hemodynamically significant velocity elevations are seen on the left. (Less than 50 percent stenosis is seen in the left internal carotid artery). Echo bubble study: This was a limited echocardiogram performed to assess for intracardiac shunting This injection of the agitated saline, no intracardiac shunt was identified Labs on day of discharge: Labs from last 24 hours 12/30/23 06:15 Sodium 134 L Potassium 4.1 Chloride 97 L Carbon Dioxide 24.0 Anion Gap 13.0 H BUN 13 Creatinine 1.0 Est GFR (CKD-EPI 2020) 66.95 Glucose 294 H Calcium 9.6 Magnesium 1.9 PFSH All Active Problems (Updated 12/29/23 @ 12:36 by Jessica Harding MD) Left hand weakness (Acute) Tobacco abuse (Acute) Bilateral carotid artery stenosis (Acute) Discharge planning issues (Acute) DVT prophylaxis (Acute) Hyperlipidemia (Chronic) Acute cerebrovascular accident (CVA) (Acute) Tongue swelling (Acute) Angioedema (Acute) Encounter for wound re-check (Acute) MRSA (methicillin resistant staph aureus) culture positive (Acute) Cellulitis and abscess of other specified site (Acute) Diarrhea (Acute) Cellulitis (Acute) Acute hyperglycemia (Acute) Medical History Bone spur Diabetes mellitus, type II Dyspnea on exertion Female stress incontinence Hypertension Hypothyroidism (acquired) Irregular heart rate Obesity Obstructive sleep apnea (adult) (pediatric) Restless leg syndrome Sinusitis, chronic Smoker Surgical History History of section S/P hernia repair Status post incision and drainage (~06/2023) Social History Smoking/Tobacco Use Status: Current every day Tobacco Type: e-cigarettes Smoking risk assessment performed?: Yes Alcohol Intake: current Alcohol Intake frequency: a few times a month Drug use: Occasionally Substance use type: marijuana Housing: house Do you feel safe at home: Yes Do you feel safe in your relationship?: Yes Time Spent with Patient Time Spent with Patient: 45-69 minutes Time was spent: preparing to see the patient(eg.review tests), obtaining and/or reviewing separately otained hiistory, ordering medications,tests, procedures, referring, communicating with other health home health care provider, indepentently interpreting results, counseling the patient and care coordination
[2023-12-30] MEDS: Enoxaparin 60 MG/0.6 ML SYR SC (10:16)
--- NOTE | 2023-12-30 10:46 | CMDISCH_ITS ---
Date of service: 12/30/23 Time of Service: 10:46 LACE Index Scoring Tool Questions: Length of Stay (in days): 2 Was the patient admitted via the E.D.?: Yes Comorbidities: Cerebrovascular Disease and Diabetes w/o Complication E.D. Visits: 2 Answers: Total Score: 9 Risk of Readmission: Low Risk Care Management Discharge Plan Reason for Hospitalization: acute CVA Discharge Plan: Tabatha will be discharged home with no new services. She will follow up with her community providers and plan of care and transport with family. Patient/Family Education Needs: Review of discharge instructions, activity, limitations, follow up plan and discuss Ask Me Three [facility] Health Related Social Needs: No Data to Display
[2023-12-30 11:08] VITALS: BP 143/61; PULSE 92; RESP 17; TEMP 36.9; O2SAT 97
== END 2023-12-30 14:43 | disposition home or self-care (01) | DRG 65 ==
LOC: ER 22:03 → MS 12-29 03:46
PROVIDERS: Admitting Provider Internal Medicine; Emergency Provider Emergency Medicine; PCP Nurse Practitioner Family; Visit Provider Internal Medicine
DX: I63.89 Other cerebral infarction (principal); Z68.43 Body mass index [BMI] 50.0-59.9, adult; E78.5 Hyperlipidemia, unspecified; I10 Essential (primary) hypertension; G47.33 Obstructive sleep apnea (adult) (pediatric); E03.9 Hypothyroidism, unspecified; G25.81 Restless legs syndrome; E11.40 Type 2 diabetes mellitus with diabetic neuropathy, unspecified; N39.3 Stress incontinence (female) (male); E66.9 Obesity, unspecified; J32.9 Chronic sinusitis, unspecified; F17.290 Nicotine dependence, other tobacco product, uncomplicated; Z79.85 Long-term (current) use of injectable non-insulin antidiabetic drugs; G83.22 Monoplegia of upper limb affecting left dominant side; Z79.4 Long term (current) use of insulin; E11.65 Type 2 diabetes mellitus with hyperglycemia; I65.23 Occlusion and stenosis of bilateral carotid arteries; Z91.148 Patient's other noncompliance with medication regimen for other reason
CPT/HCPCS: 00123; 36415; 36416; 70496; 70498; 80048; 80061; 82962; 93005; 93308; 96360; 96361; 97110; 97162; 97165; 99285; 70551; 71045; 72141; 73030; 83036; 83735; 83880; 84439; 84443; 84484; 85025; 93010; 93306; 93880; 94660; 99222; 99232; 99239; J1650; J1815; J3475; J3490

== ENCOUNTER 2023-12-30 11:42 | Outpatient (RCR) | payer OTHER, SELFPAY | END 2024-01-05 23:59 | disposition home or self-care (01) | LOC: RT 11:42 | PROVIDERS: PCP Nurse Practitioner Family; Visit Provider Nurse Practitioner Family | DX: I63.9 Cerebral infarction, unspecified (principal) | CPT/HCPCS: 93270 ==

== ENCOUNTER 2024-01-04 15:56 | Outpatient (REF) | payer OTHER, SELFPAY ==
[2024-01-04 21:51] LABS: Bacteria Rare HPF (Negative); C & S Indicated? C&S Done As Ordered; Crystals Negative HPF (Negative); Epithelial Cells Moderate HPF (Negative); Mucus Trace (Negative); RBC 20-50 HPF (0-2); WBC Negative HPF (0-5)
== END 2024-01-04 15:57 | disposition home or self-care (01) ==
LOC: LBN 15:56
PROVIDERS: PCP Nurse Practitioner Family; Visit Provider Physician Assistant Medical
DX: R30.0 Dysuria (principal); R82.998 Other abnormal findings in urine; N76.0 Acute vaginitis
CPT/HCPCS: 81015; 87086; 87480; 87510; 87660

== ENCOUNTER 2024-02-02 07:51 | Outpatient (CLI) | payer OTHER, SELFPAY ==
--- NOTE | 2024-02-02 12:55 | W.CARDEVENT ---
Date of service: 02/02/24 Time of Service: 12:56 Cardiac Event Recorder Referring Provider:: Caryl Galeas Indications:: Cerebral infarction Cardiac Event Note: This is a cardiac event monitor. Patient was monitored for 4 days and 6 hours Rhythm throughout was sinus. Average heart rate was 103 . Maximum was 130. There was no bradycardia. Several atrial premature beats were seen There was no atrial fibrillation, no high-grade AV block, no pauses greater than 3 seconds
== END 2024-02-02 07:52 | disposition home or self-care (01) ==
LOC: CARDOPNVT 07:51
PROVIDERS: PCP Nurse Practitioner Family; Visit Provider Internal Medicine Cardiovascular Disease
DX: I63.9 Cerebral infarction, unspecified (principal); I49.1 Atrial premature depolarization

== ENCOUNTER 2024-07-27 15:17 | Outpatient (REF) | payer OTHER, SELFPAY ==
[2024-07-27 16:24] LABS: ALT 21 U/L (14-59); AST 16 U/L (15-37); Albumin 3.1 g/dL (3.4-5.0); Alkaline Phosphatase 181 U/L (46-116); Anion Gap 6.1 mmol/L (3-11); BUN 11 mg/dL (7-18); Bilirubin, Total 0.24 mg/dL (0.2-1.0); CO2 29.9 mmol/L (21.0-32.0); CREATININE 0.8 mg/dL (0.55-1.02); Calcium 9.5 mg/dL (8.5-10.1); Chloride 102 mmol/L (98-107); Glucose 122 mg/dL (74-106); Potassium 4.2 mmol/L (3.5-5.1); Sodium 138 mmol/L (136-145); TSH (W/Ref FT4) < 0.01 uIU/mL (0.36-3.74); Total Protein 7.4 g/dL (6.4-8.2)
[2024-07-27 16:47] LABS: FREE T4 1.91 ng/dL (0.76-1.46)
== END 2024-07-27 15:18 | disposition home or self-care (01) ==
LOC: NCHCN 15:17
PROVIDERS: PCP Family Medicine; Visit Provider Family Medicine
DX: E11.9 Type 2 diabetes mellitus without complications (principal); E03.9 Hypothyroidism, unspecified
CPT/HCPCS: 80053; 83036; 84439; 84443

== ENCOUNTER 2025-01-25 11:25 | Outpatient (REF) | payer OTHER, SELFPAY ==
[2025-01-25 15:29] LABS: Anion Gap 6.5 mmol/L (3-11); BUN 16 mg/dL (7-18); CO2 29.5 mmol/L (21.0-32.0); CREATININE 0.8 mg/dL (0.55-1.02); Calcium 10.2 mg/dL (8.5-10.1); Chloride 105 mmol/L (98-107); Estimated GFR 86.96 (mL/min/1.73m2); Glucose 116 mg/dL (74-106); Potassium 4.7 mmol/L (3.5-5.1); Sodium 141 mmol/L (136-145); TSH (W/Ref FT4) 0.01 uIU/mL (0.36-3.74)
== END 2025-01-25 11:26 | disposition home or self-care (01) ==
LOC: NCHCN 11:25
PROVIDERS: PCP Family Medicine; Visit Provider Family Medicine
DX: I10 Essential (primary) hypertension (principal); E03.9 Hypothyroidism, unspecified
CPT/HCPCS: 80048; 84439; 84443

== ENCOUNTER 2025-09-27 09:51 | Outpatient (REF) | payer OTHER, SELFPAY ==
[2025-09-27 15:27] LABS: Hemoglobin A1C 5.6 % (<5.7)
[2025-09-27 15:33] LABS: Anion Gap 9.7 mmol/L (3-11); BUN 14 mg/dL (9-23); CO2 28.3 mmol/L (20.0-31.0); Calcium 10.0 mg/dL (8.3-10.6); Chloride 103 mmol/L (98-107); Glucose 92 mg/dL (74-106); Potassium 4.7 mmol/L (3.5-5.1); Sodium 141 mmol/L (136-145)
== END 2025-09-27 09:52 | disposition home or self-care (01) ==
LOC: NCHCN 09:51
PROVIDERS: PCP Family Medicine; Visit Provider Family Medicine
DX: I10 Essential (primary) hypertension (principal); E11.9 Type 2 diabetes mellitus without complications; E03.9 Hypothyroidism, unspecified
CPT/HCPCS: 80048; 83036; 84439